=== PATIENT | female | born 1955 | race Caucasian/White ===

== ENCOUNTER 2020-09-26 14:53 | Outpatient (REF) | payer OTHER, SELFPAY ==
[2020-09-26 16:27] LABS: Basophils Percent Auto 0.5 % (0-2); Eosinophils Absolute Auto 0.2 X10*3/uL (0.0-0.4); Eosinophils Percent Auto 2.9 % (0-4); Hematocrit 41.5 % (37-47); Hemoglobin 13.3 g/dl (12.0-16.0); Imm Gran Abs Auto 0.04 X10*3/uL (0.00-0.03); Imm Gran Pct Auto 0.7 % (0.0-0.4); Lymphocytes Absolute Auto 2.1 X10*3/uL (1.2-4.9); Lymphocytes Percent Auto 37.3 % (20-40); MANUAL DIFF FLAG NO; Mean Corpuscular Hemoglobin 29.3 pg (27.0-33.0); Mean Corpuscular Volume 91.4 fL (80-98); Mean Platelet Volume 11.8 fL (9.4-12.3); Monocytes Absolute Auto 0.6 X10*3/uL (0.1-1.2); Monocytes Percent Auto 10.7 % (2-11); Neutrophils Absolute Auto 2.6 X10*3/uL (2.0-8.3); Neutrophils Percent Auto 47.9 % (45-73); Platelet Count 182 X10*3/uL (160-400); Red Blood Count 4.54 X10*6/uL (4.20-5.50); Red Cell Distribution Width 13.4 % (11.0-16.0); White Blood Count 5.5 X10*3/uL (4.8-10.8)
[2020-09-26 17:10] LABS: Erythrocyte Sedimentation Rate 38 MM/HR (0-20)
[2020-09-26 17:16] LABS: SARS COV2 IgG Positive (Negative)
== END 2020-09-26 14:54 | disposition home or self-care (01) ==
LOC: HO.LAB 14:53
PROVIDERS: Visit Provider Hospitalist
DX: J45.50 Severe persistent asthma, uncomplicated (principal); Z20.828 Contact with and (suspected) exposure to other viral communicable diseases
CPT/HCPCS: 36415; 82785; 85025; 85652; 86003; 86769; 99212

== ENCOUNTER → 2020-10-19 15:35 | Outpatient (BNVA) | payer OTHER, SELFPAY | PROVIDERS: Visit Provider Surgery | DX: N64.4 Mastodynia (principal) | CPT/HCPCS: 99212 ==

== ENCOUNTER → 2020-11-16 16:05 | Outpatient (BNVA) | payer OTHER, SELFPAY | PROVIDERS: Visit Provider Surgery | DX: N64.4 Mastodynia (principal) | CPT/HCPCS: 99212 ==

== ENCOUNTER → 2020-12-16 10:45 | Outpatient (BNVA) | payer OTHER, SELFPAY | PROVIDERS: Visit Provider Surgery | DX: N64.4 Mastodynia (principal) | CPT/HCPCS: 99212 ==

== ENCOUNTER → 2021-01-26 12:53 | Outpatient (BNVA) | payer OTHER, SELFPAY | PROVIDERS: Visit Provider Hospitalist | DX: J45.50 Severe persistent asthma, uncomplicated (principal); J98.11 Atelectasis; J30.9 Allergic rhinitis, unspecified; B02.29 Other postherpetic nervous system involvement; Z79.899 Other long term (current) drug therapy | CPT/HCPCS: 99212 ==

== ENCOUNTER → 2021-04-20 08:06 | Outpatient (BNVA) | payer OTHER, SELFPAY | PROVIDERS: Visit Provider Surgery | DX: N64.4 Mastodynia (principal) | CPT/HCPCS: 99212 ==

== ENCOUNTER 2021-05-04 14:21 | Outpatient (REF) | payer OTHER, SELFPAY ==
--- NOTE | ~2021-05-04 | MM_ITS ---
EXAMINATION: MM DIAGNOSTIC DIGITAL BREAST TOMOSYNTHESIS, BILATERAL US DIAGNOSTIC ULTRASOUND BREAST, BILATERAL CLINICAL INFORMATION: 65-year-old with mastodynia. No palpable concern on clinical exam. Patient provides history remote right breast cancer, 2003. COMPARISON: Mammography: 07/15/2020, 06/01/2020, 05/07/2019, MRI breasts 06/16/2019. TECHNIQUE: Digital breast tomosynthesis is performed in both the craniocaudal and mediolateral oblique views along with computer-aided detection (CAD). Synthesized 2D images are generated from the tomosynthesis. Additional left spot CC and left spot ML views are obtained. Ultrasound bilateral breasts is performed using grayscale imaging and color Doppler without and with harmonics. Left breast is imaged 2:00 through 11:00 position. Right breast is imaged in 3:00 through 12:00 position. FINDINGS: There are scattered areas of fibroglandular density (ACR BI-RADS breast composition Category b). There are no significant masses, abnormal calcifications, or other abnormalities. No developing density. No skin thickening or coarsening of the Kannan's ligaments. The axilla are stable. Skin contours are smooth. No significant changes. Ultrasound bilateral breast demonstrates no solid mass or architectural abnormality. There is no skin thickening or edema tracking in soft tissue planes. No focal duct ectasia or hyperemia. Left breast has a tiny cyst 6:00 position 3 cm from nipple measuring under 4 mm. Right breast has tiny cyst 9:00 position 7 cm from nipple under 4 mm. Results are discussed with the patient at time of visit. MM/MM tomosynthesis diagnostic BI IMPRESSION: 1. No mammographic evidence of malignancy or focal inflammatory changes.. 2. Unremarkable targeted bilateral ultrasound. ASSESSMENT: BI-RADS 2: Benign RECOMMENDATION: 1. Patient should be managed based on the clinical impression. 2. Otherwise, routine annual screening mammography. Additional adjunct MRI breasts as clinical risk factors warrant. This patient's information was entered into a reminder system with a target due date for their next mammogram.
== END 2021-05-04 14:22 | disposition home or self-care (01) ==
LOC: HO.MAMMO 14:21
PROVIDERS: Visit Provider Surgery
DX: N64.4 Mastodynia (principal)
CPT/HCPCS: 76642; 77062; 77066

== ENCOUNTER → 2021-07-31 12:57 | Outpatient (BNVA) | payer OTHER, SELFPAY | PROVIDERS: Visit Provider Hospitalist | DX: J45.40 Moderate persistent asthma, uncomplicated (principal); J30.9 Allergic rhinitis, unspecified; J98.11 Atelectasis; M54.9 Dorsalgia, unspecified; G47.00 Insomnia, unspecified; B02.29 Other postherpetic nervous system involvement; Z88.6 Allergy status to analgesic agent; Z91.018 Allergy to other foods; Z88.8 Allergy status to other drugs, medicaments and biological substances | CPT/HCPCS: 99212 ==

== ENCOUNTER → 2021-10-24 13:59 | Outpatient (BNVA) | payer OTHER, SELFPAY | PROVIDERS: Referring Provider Internal Medicine; Visit Provider Surgery | DX: N64.4 Mastodynia (principal) | CPT/HCPCS: 99212 ==

== ENCOUNTER → 2022-01-17 09:58 | Outpatient (BNVA) | payer OTHER, SELFPAY | PROVIDERS: PCP Internal Medicine; Visit Provider Hospitalist | DX: J45.50 Severe persistent asthma, uncomplicated (principal); J30.9 Allergic rhinitis, unspecified; J98.11 Atelectasis; G47.00 Insomnia, unspecified | CPT/HCPCS: 99212 ==

== ENCOUNTER → 2022-04-26 13:26 | Outpatient (BNVA) | payer OTHER, SELFPAY | PROVIDERS: PCP Internal Medicine; Visit Provider Surgery | DX: N64.4 Mastodynia (principal); Z79.810 Long term (current) use of selective estrogen receptor modulators (SERMs) | CPT/HCPCS: 99212 ==

== ENCOUNTER 2022-05-08 08:24 | Outpatient (REF) | payer OTHER, SELFPAY ==
--- NOTE | ~2022-05-08 | XR_ITS ---
EXAMINATION: XR CHEST 2 VIEWS CLINICAL INFORMATION: Severe persistent asthma. COMPARISON: Chest radiographs dated 10/02/2019; CT chest dated 01/04/2020. TECHNIQUE: Frontal and lateral views of the chest were obtained. FINDINGS: The heart, great vessels, pulmonary vasculature and mediastinum are normal. The lungs show no focal infiltrate, effusion or pneumothorax. There is no acute osseous abnormality. There is multi-level thoracolumbar spondylosis. There are right upper quadrant surgical clips. XR/XR chest 2V IMPRESSION: No active cardiopulmonary disease.
--- NOTE | ~2022-05-08 | MM_ITS ---
EXAMINATION: MM SCREENING DIGITAL BREAST TOMOSYNTHESIS, BILATERAL CLINICAL INFORMATION: Screening. Asymptomatic. Remote right breast cancer, 2003. COMPARISON: Mammography: 05/04/2021, 07/15/2020, 06/01/2020, 05/07/2019, outside mammography 01/30/2019 and 01/25/2018 ([facility]). Bilateral breast ultrasound 05/04/2021. TECHNIQUE: Digital breast tomosynthesis is performed in both the craniocaudal and mediolateral oblique views along with computer-aided detection (CAD). Synthesized 2D images are generated from the tomosynthesis. FINDINGS: There are scattered areas of fibroglandular density (ACR BI-RADS breast composition Category b). Parenchymal pattern is similar to prior studies. There are scattered stable small fibronodular densities anterior breasts. No developing density or architectural abnormality. No abnormal calcifications. The axilla and skin contours are unremarkable. MM/MM tomosynthesis screening BI IMPRESSION: No significant changes from prior studies. ASSESSMENT: BI-RADS 2: Benign RECOMMENDATION: Routine annual mammography screening. This patient's information was entered into a reminder system with a target due date for their next mammogram.
== END 2022-05-08 08:25 | disposition home or self-care (01) ==
LOC: HO.MAMMO 08:24
PROVIDERS: Absent Provider Hospitalist; PCP Internal Medicine; Visit Provider Internal Medicine
DX: Z12.31 Encounter for screening mammogram for malignant neoplasm of breast (principal); J45.50 Severe persistent asthma, uncomplicated
CPT/HCPCS: 71046; 77063; 77067

== ENCOUNTER → 2022-05-23 09:59 | Outpatient (BNVA) | payer OTHER, SELFPAY | PROVIDERS: PCP Internal Medicine; Visit Provider Hospitalist | DX: J45.50 Severe persistent asthma, uncomplicated (principal); J30.9 Allergic rhinitis, unspecified; J98.11 Atelectasis; G47.00 Insomnia, unspecified | CPT/HCPCS: 99212 ==

== ENCOUNTER → 2022-12-14 11:11 | Outpatient (BNVA) | payer MEDICARE, MEDICAID, SELFPAY | PROVIDERS: PCP Internal Medicine; Visit Provider Surgery | DX: N64.4 Mastodynia (principal); Z79.810 Long term (current) use of selective estrogen receptor modulators (SERMs); Z85.3 Personal history of malignant neoplasm of breast | CPT/HCPCS: 99212 ==

== ENCOUNTER → 2023-01-01 10:30 | Outpatient (BNVA) | payer MEDICARE, MEDICAID, SELFPAY | PROVIDERS: PCP Internal Medicine; Visit Provider Hospitalist | DX: J45.50 Severe persistent asthma, uncomplicated (principal); J30.9 Allergic rhinitis, unspecified; J98.11 Atelectasis; G47.00 Insomnia, unspecified | CPT/HCPCS: 99212 ==

== ENCOUNTER 2023-05-22 10:22 | Outpatient (REF) | payer OTHER, SELFPAY ==
--- NOTE | 2023-05-22 12:20 | PFT_ITS ---
INDICATION: Asthma. SPIROMETRY: The FEV1 to FVC 84% with an FEV1 of 1.77 L which is 76% predicted and FVC of 2.1 L which is 71% predicted. No significant response to bronchodilators noted. She does have small airway disease. LUNG VOLUMES: Total lung capacity 79% predicted with an expiratory residual volume of 51% predicted. DIFFUSION CAPACITY: DLCO of 57% predicted. COMPARISONS: None. INTERPRETATION: No obstructive ventilatory defects. No significant response to bronchodilators noted. Appears to have some small airway disease, could be secondary to underlying diagnosis of asthma. The patient does, however, have a restricted ventilatory defect consistent with very mild restrictive lung disease and also a decrease in the expiratory reserve volume which could be secondary to underlying parenchymal lung condition and elevated BMI. The patient also has a moderate diffusion impairment again suggesting the possibility of underlying parenchymal lung conditions. Pulmonary vascular condition should also be considered and should also correct for hemoglobin. If asthma is in your differential, methacholine challenge may be helpful in assessing for hyperreactive airways. Otherwise, clinical correlation warranted. MD DRE Smith/FARZAD / [phone]
== END 2023-05-22 10:23 | disposition home or self-care (01) ==
LOC: HO.RESP 10:22
PROVIDERS: PCP Internal Medicine; Visit Provider Hospitalist
DX: J45.50 Severe persistent asthma, uncomplicated (principal)
CPT/HCPCS: 94060; 94727; 94729

== ENCOUNTER → 2023-05-22 12:20 | Outpatient (BNV) | payer MEDICARE, MEDICAID, SELFPAY | PROVIDERS: PCP Internal Medicine; Visit Provider Hospitalist | DX: J45.50 Severe persistent asthma, uncomplicated (principal) | CPT/HCPCS: 94060; 94727; 94729 ==

== ENCOUNTER 2023-06-10 08:07 | Outpatient (REF) | payer OTHER, SELFPAY | END 2023-06-10 08:08 | disposition home or self-care (01) | LOC: HO.MAMMO 08:07 | PROVIDERS: PCP Internal Medicine; Visit Provider Internal Medicine | DX: Z12.31 Encounter for screening mammogram for malignant neoplasm of breast (principal) | CPT/HCPCS: 77063; 77067 ==

== ENCOUNTER → 2023-06-10 08:15 | Outpatient (BNV) | payer SELFPAY | PROVIDERS: PCP Internal Medicine; Visit Provider Radiology Diagnostic Radiology | DX: Z12.31 Encounter for screening mammogram for malignant neoplasm of breast (principal) | CPT/HCPCS: 77063; 77067 ==

== ENCOUNTER 2023-06-28 10:16 | Outpatient (AMB) | payer OTHER, SELFPAY ==
--- NOTE | 2023-06-28 10:22 | A.OFFVIS_ITS ---
Intake Vital Signs 06/28/23 10:28 Height 5 ft 3 in Weight 177 lb 6 oz BMI 31.4 BP 128/70 Blood Pressure Location Lt brachial Position Sitting Pulse 89 Intake Visit Reasons: 6 mth breast exam Intake Note: Patient is seen in office for 6 month follow up visit, breast exam. 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 Required: No Accompanied by: Self / Same As Patient Allergies aspirin Allergy (Intermediate, Verified 06/28/23 10:28) Rash and Hives omalizumab [From Xolair] Allergy (Intermediate, Verified 06/28/23 10:28) Angioedema Almonds,hazenuts,fresh fruits, Allergy (Severe, Uncoded 06/28/23 10:28) Hives/Rash Chlorhexidine Allergy (Severe, Uncoded 06/28/23 10:28) Rash and Hives Dye USP Blue 1 Allergy (Severe, Uncoded 06/28/23 10:28) Rash and Hives fresh fruits Allergy (Severe, Uncoded 06/28/23 10:28) Rash and Hives onions Allergy (Severe, Uncoded 06/28/23 10:28) Rash and Hives Chlora Prep Allergy (Intermediate, Uncoded 06/28/23 10:28) rash Medication List - Last Reconciled 06/28/23 by Bacilio Syed MD albuterol sulfate 2.5 mg inhalation Q4-6H PRN albuterol sulfate 90 mcg/actuation 2 puffs PO Q4H PRN benralizumab (Fasenra Pen) 30 mg subcut Q8W benzonatate 200 mg PO TID PRN diclofenac sodium 1% 4 grams topical QID epinephrine (EpiPen 2-Teofilo) 0.3 mg (0.3 mL) IM Q10M PRN 30 days [id number]-dojgzyvwx-cifhhjhr 200-62.5-25 mcg (Trelegy Ellipta) 1 inh inhalation DAILY 30 days gabapentin 300 mg PO TID hydrochlorothiazide 12.5 mg PO DAILY hydroxychloroquine 200 mg PO DAILY lidocaine 5% (Lidoderm) 1 patch topical DAILY 30 days loratadine 10 mg PO DAILY magnesium oxide 400 mg PO BID montelukast 10 mg PO DAILY nebulizers As directed omeprazole 40 mg PO DAILY 30 days potassium citrate ER (Urocit-K 10) 10 mEq PO TID prednisone 20 mg PO DAILY prednisone PO daily; Take 2 tabs daily x 5 days, then 1 tablet daily x 5 days 10 days tamoxifen 10 mg PO DAILY terbinafine HCl 250 mg PO DAILY trazodone 100 mg (2 x 50 mg) PO BEDTIME umeclidinium 62.5 mcg/actuation (Incruse Ellipta) 1 inh inhalation DAILY 30 days valacyclovir 1,000 mg PO Q8H HPI HPI Comments History of Present Illness Details Evie Shahid is a 67-year-old former patient of Dr. Wells returning today for follow-up breast evaluation for breast pain.? She reports the pain being greatest on the right side especially in the upper inner quadrant.? She underwent bilateral mammograms along with focused right breast ultrasound on 06/01/2020 and 07/15/2020 which were benign (BI-RADS 1) breast MRI of 06/16/2019 was benign as well.? She was initially tried [place] oil without much success and later started on tamoxifen by Dr. Wells.? Since starting the tamoxifen she reports an improvement in her breast pain especially on the right side.? She de nies any leg pain or leg swelling.? She denies any vaginal bleeding. She was previously on tamoxifen after developing right breast cancer which was treated at [facility] in 1998 (Dr. Eliza Quiroz).? She continues to feel improvement while taking the tamoxifen and is interested in continuing this medication. She denies any new breast symptoms. Her most recent mammogram of 06/10/2023 revealed no significant changes from her prior mammogram with no mammographic evidence of malignancy (BI-RADS 2). [facility] Medical History Asthma Atelectasis Back pain Chronic allergic rhinitis Insomnia Kidney stones Moderate persistent asthma Post herpetic neuralgia Surgical History History of 2 sections History of arthroplasty of knee (1993) History of cholecystectomy (07/21/19) History of colonoscopy (08/30/19) History of cystoscopy (2010) History of excision of mass (08/27/19) History of hemorrhoidectomy (1983) History of hysterectomy for cancer History of tonsillectomy and adenoidectomy (1965) Family History Father No problems noted. Mother No problems noted. Sister History of ovarian cancer, Onset Age: 49 Maternal Aunt History of breast cancer Maternal Aunt History of breast cancer Maternal Aunt History of breast cancer Maternal Aunt History of breast cancer Social History Alcohol intake: never Patient Tobacco Use Status: Never used Tobacco Review of Systems Const Denies anorexia and Denies chills Card Denies chest pain Resp Reports cough and Reports wheezing GI Denies abdominal pain Denies nipple discharge Musc Denies no additional complaints Skin/Breast Denies breast swelling, Reports breast pain, Denies breast mass and Denies nipple discharge Psych Denies no additional complaints Niranjan/Lymph Denies easy bleeding and Denies lymphadenopathy Aller/Immun Reports wheezing Physical Exam Vital Signs: Last Vital Signs Pulse 89 06/28/23 10:28 BP 128/70 06/28/23 10:28 BMI result Body Mass Index 31.4 Const General: cooperative, healthy appearing, comfortable and no acute distress Chest Other: Left breast: No skin change, no nipple retraction, no nipple discharge, no palpable mass, no enlarged lymph nodes, and no tenderness. Right breast: No skin change, no nipple retraction, no nipple discharge, no palpable mass, no enlarged lymph nodes; diffuse mild tenderness in both the inner upper and lower quadrants with some mild fibrocystic change. No change from prior examinations. Resp Effort & Inspection: normal respiratory effort, no cough and no stridor GI Inspection: Yes normal to inspection Skin Other: Warm and dry, no rash General skin exam: no rashes or lesions noted Neuro Other: Alert and oriented x3, patient uses a cane for ambulation Extrem General: Yes no clubbing, cyanosis or edema Assessment & Plan Assessment & Plan (1) Breast pain: Code(s): N64.4 - Mastodynia Plan: Patient returns for follow-up examination after starting low-dose tamoxifen for breast pain. She is tolerating well with no apparent side effects. She continues to note an improvement in the bilateral breast pain and is now able to wear a bra without discomfort. She wishes to continue the medication. Examination today revealed no suspicious findings in either breast. She has no apparent complications related to tamoxifen as well. She should return for follow-up examination approximately 6 months to evaluate for effectiveness of the current treatment. Patient expressed understanding and agrees with the plan. Follow-up mammogram due on May 2024. Plan to stop tamoxifen after 5 years (1 more year). Medications: Refilled tamoxifen 10 mg PO DAILY 90 tabs 3RF N64.4 - Mastodynia Coding Level of Care Code Est Pt Level 3 (26847) Diagnoses Breast pain N64.4
[2023-06-28 10:28] VITALS: BP 128/70; PULSE 89; BMI 31.4
== END 2023-06-28 10:38 | disposition home or self-care (01) ==
PROVIDERS: PCP Internal Medicine; Visit Provider Surgery
DX: N64.4 Mastodynia (principal)
CPT/HCPCS: 99213

== ENCOUNTER → 2023-06-28 10:16 | Outpatient (BNVA) | payer OTHER, SELFPAY | PROVIDERS: PCP Internal Medicine; Visit Provider Surgery | DX: N64.4 Mastodynia (principal); Z79.810 Long term (current) use of selective estrogen receptor modulators (SERMs) | CPT/HCPCS: 99212 ==

== ENCOUNTER 2023-07-05 10:42 | Outpatient (AMB) | payer OTHER, SELFPAY ==
--- NOTE | 2023-07-05 11:00 | A.OFFVIS_ITS ---
Intake Vital Signs 07/05/23 11:03 Height 5 ft 3 in Weight 176 lb BMI 31.2 BP 128/72 Blood Pressure Location Lt brachial Position Sitting Pulse 89 Pulse Source Pulse Oximeter Pulse Oximetry (%) 97 Oxygen Delivery Method Room Air Intake Visit Reasons: asthma Director Of Career Resources Required: No Allergies aspirin Allergy (Intermediate, Verified 07/05/23 11:06) Rash and Hives omalizumab [From Xolair] Allergy (Intermediate, Verified 07/05/23 11:06) Angioedema Almonds,hazenuts,fresh fruits, Allergy (Severe, Uncoded 07/05/23 11:06) Hives/Rash Chlorhexidine Allergy (Severe, Uncoded 07/05/23 11:06) Rash and Hives Dye DETENTION Blue 1 Allergy (Severe, Uncoded 07/05/23 11:06) Rash and Hives fresh fruits Allergy (Severe, Uncoded 07/05/23 11:06) Rash and Hives onions Allergy (Severe, Uncoded 07/05/23 11:06) Rash and Hives Chlora Prep Allergy (Intermediate, Uncoded 07/05/23 11:06) rash HPI HPI Comments History of Present Illness Details The patient is a 67-year-old woman with a known history of asthma in addition to systemic lupus erythematous. Will or she continues to use her respiratory therapy regularly. Has not had any recent flares or need for prednisone. Seems like it lupus is under control. However, the patient is presenting now with left-sided pleuritic discomfort mainly in the upper part of her left lung. This started happening for the last day or 2. It seems to be getting worse. Moderate in severity. Not associated with any fevers or chills. She has noticed increased rash sometimes getting blotches of January under scan that are tender. 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 The last kidney function was normal. The patient has not had any recent x-rays or blood work. We did do a blood work evaluation to see if she has any active lupus and we didn't see any significance. We talked about Plaquenil also potential therapy however. In the meantime the patient continues having this discomfort. Her x-ray appear to be relatively clear was not helpful trying to explain the right-sided pleuritic discomfort. She may have a neuromuscular component. But at this time with history lupus we have to make sure she the doesn't have any evidence of any pneumonitis or pleuritis. She does have an allergic reaction to dye as we cannot use that at this time. Will requested non contrast CT scan of the chest. In the meantime will try Plaquenil and consider he given some prednisone. We did do the blood work to assess lupus activity and her complement levels were within normal and her double strand DNA was also undetectable. Therefore, does not appear to have any lupus activity. Her CT scan of the chest is also reassuring. She has areas of atelectasis but no other findings to suggest active connective tissue disease at this time. Her pleural lining appears to be well visualized without any significant thickening or inflammation or effusions. 09/26/2020 the patient has a pulmonary follow-up visit. Overall she is feeling better now. Last month she did have increasing asthma symptoms and did have GI symptoms as well as fatigue. She did lose about 12 lb. Her respiratory status is better. She denied any fevers and denies any exposure to anyone with COVID-19 infection of the time. At this point based on her symptoms it is reasonable to check her for potential COVID-19 exposure with her antibodies. Again we did review her CT scan of the chest demonstrating some atelectasis and some scarring but otherwise no evidence of any interstitial lung disease to be concerned about. No need to follow this at this time. We talked about her respiratory medications. The patient has been on the Trelegy which appears to be effective but sometimes she feels like is not strong enough. At this point is reasonable to increase the dose to the higher dose which is a 200 mcg. In the meantime she does have significant allergies and therefore will check her allergy levels to see if she has a candidate for any allergy therapies or biologic therapy at this time. 01/26/2021 the patient is here for pulmonary follow-up visit. Since we last spoke she has been doing well from a respiratory status. She has been responding well to the higher dose Trelegy inhaler. She has had to use her rescue inhaler at times for chest tightness and wheezing. She is also complaining of some discomfort due to developing shingles. She has significant discomfort now with post herpetic neuralgia. She has been trying medications with minimal relief. She will try a Lidoderm patch to see if she gets some benefit. She has been complaining of discomfort in the back primarily the right lung. Again we talked about her CT scan demonstrating some areas of atelectasis but otherwise no significant disease. Therefore the patient is not getting any better and develops any worsening chest discomfort she can have an x-ray that will have available for her. 07/31/2021 the patient is here for a pulmonary follow-up visit. Since we last spoke she had a bad fall down the stairs injuring both risks and also her left knee. She did follow-up with orthopedist. She does not require surgery although she does have braces. Breathing seems to be doing okay. She has responded well to the Trelegy. Denies any significant coughing or shortness of breath. She has been complaining of some pain in the upper back. It is reproducible. It is not pleuritic in nature. Likely related to her accident, musculoskeletal. Although, she never had a chest x-ray after the fall therefore that will be a reasonable thing to do to make sure that no further injuries were noted. she is having hard time sleeping. Initially she had been on high dose of gabapentin and she would like to hold off on increasing that medication since it has made a really drowsy. I did recommend she can try some trazodone to see if that would help her stay asleep she can start with 1 tablet 1 hour before sleep and increasing it to 2 if still having issues. It is okay for her to use the gabapentin along with the trazodone as long she is going right to bed. 01/17/2022 the patient is here for a pulmonary follow-up visit. Overall she is feeling better. However, she did have a tough November. She has significant chest tightness and wheezing. She is not sure was triggering her symptoms. She denied any viral syndromes or sick contacts. Overall she did well afterwards. She did not require prednisone and did not require hospitalization have the patient has been having some difficulties getting her inhalers. we did look into it by calling the pharmacy and we straighten out the issue. She was going to go get her inhalers today. In the meantime she does have significant allergies. She does take Claritin and also takes singular. Her Respiratory medications are already optimized. She does have significant allergies that we reviewed on her allergy panel. Therefore, she continues to have symptoms she may be a good candidate for Xolair. 05/23/2022 the patient is here for a pulmonary follow-up visit. The patient overall has been doing about the same. She has been using the Breo and the Incruse and have not been as effective as the Trelegy. Therefore she rather go on Trelegy. Will submit another prescription to the pharmacy and then will need a prior approval to get her back on Trelegy. This will improve her respiratory symptoms and decrease exacerbations. In the meantime the patient did have a chest x-ray sometime in April which we personally reviewed demonstrating any acute disease. She has not had any anaphylactic reaction but now having been is . I will make sure to for her to have 1 at home. She is still using the trazodone for sleep with good effect. 01/01/2023 the patient is here for a pulmonary follow-up visit. The patient continues to have some chest tightness wheezing. [id number] severity. Has been using her rescue inhaler daily. She was supposed to be on Trelegy but she is still on Breo. Therefore will go ahead and discontinue the Breo senna the Trelegy inhaler. She also started her Fasenra injections. She had an adverse effects to Xolair and therefore she was switched over. She seems to be tolerating it better and seems to be improving her symptoms to some degree. I am hopeful that once we optimize her respiratory therapy while on the Fasenra she will have some cephalization of her asthma. Her last chest x-ray was back in April 2022 demonstrating no acute disease which is reassuring. No additional imaging studies are warranted at this time. 07/05/2023 the patient is here for a pulmonary follow-up visit. Her respiratory status seems to be doing better on the Trelegy inhaler and also on the Fasenra injections. She has been having some chest discomfort her. Pleuritic in nature. She had been on Plaquenil before and did help her with her symptoms. Explained to her that this is not a medication that she can take regularly. I will prescribe for 1 month and afterwards if she needs additional or she feels that she wants to continue it she needs to talk to primary care or Rheumatology. The patient is also having some difficulty sleeping. She is using the melatonin. She is not using the trazodone. When she does sleep she does wake up tired. Her Pelham score is elevated 10/24. She does have intermittent headaches. She does have snoring. Will request a sleep study at this time. [facility] Medical History (Updated 07/05/23 @ 11:14 by Devon Lebron MD) Asthma Atelectasis Back pain Chronic allergic rhinitis Chronic restrictive lung disease Insomnia Kidney stones Moderate persistent asthma Post herpetic neuralgia Surgical History History of 2 sections History of arthroplasty of knee (1993) History of cholecystectomy (07/21/19) History of colonoscopy (08/30/19) History of cystoscopy (2010) History of excision of mass (08/27/19) History of hemorrhoidectomy (1983) History of hysterectomy for cancer History of tonsillectomy and adenoidectomy (1965) Family History Father No problems noted. Mother No problems noted. Sister History of ovarian cancer, Onset Age: 49 Maternal Aunt History of breast cancer Maternal Aunt History of breast cancer Maternal Aunt History of breast cancer Maternal Aunt History of breast cancer Social History Alcohol intake: never Patient Tobacco Use Status: Never used Tobacco Review of Systems Const Denies anorexia, Denies chills, Reports daytime sleepiness, Reports difficulty sleeping and Reports snoring ENT Reports nasal congestion Card Reports chest pain Resp Reports cough, Reports pain with cough, Reports snoring and Reports wheezing GI Denies abdominal pain Denies nipple discharge Musc Reports abnormal gait, Reports myalgias, Reports arthralgias and Reports muscle weakness Skin/Breast Denies breast swelling, Reports breast pain, Denies breast mass and Denies nipple discharge Neuro Reports abnormal gait Psych Denies no additional complaints Niranjan/Lymph Denies easy bleeding and Denies lymphadenopathy Aller/Immun Reports wheezing Physical Exam Vital Signs: Last Vital Signs Pulse 89 07/05/23 11:03 BP 128/72 07/05/23 11:03 Pulse Ox 97 07/05/23 11:03 Oxygen Delivery Method Room Air 07/05/23 11:03 BMI result Body Mass Index 31.2 Const General: alert Neck Neck: Yes normal visual inspection, Yes full ROM and Yes no lymphadenopathy Chest Chest palpation & inspection: normal inspection of the chest Resp Auscultation: diminished lung sounds Cardio Rate: regular rate Rhythm: regular rhythm Heart sounds: S1 normal heart sound present and S2 normal heart sound present GI Palpation (GI): Soft to palpation and nontender Auscultation: normal bowel sounds Skin General skin exam: rashes and/or lesions noted Assessment & Plan Assessment & Plan (1) Asthma: Code(s): J45.909 - Unspecified asthma, uncomplicated Qualifiers: Asthma complication type: uncomplicated Asthma persistence: persistent Asthma severity: severe Qualified Code(s): J45.50 - Severe persistent asthma, uncomplicated (2) Chronic allergic rhinitis: Code(s): J30.9 - Allergic rhinitis, unspecified (3) Atelectasis: Code(s): J98.11 - Atelectasis (4) Insomnia: Code(s): G47.00 - Insomnia, unspecified (5) MARLON (obstructive sleep apnea): Code(s): G47.33 - Obstructive sleep apnea (adult) (pediatric) Plan continue Trelegy continue Melatonin home PSG CXR plaquenil x 1 month only ZOË as needed continue singular continue Claritin stopped Trazodone for sleep continue Fasenra Q8 weeks F/U 6 months Orders: Orders XR chest 2V 07/05/23 J98.4 - Other disorders of lung RT home sleep study 07/05/23 G47.33 - Obstructive sleep apnea (adult) (pediatric) Medications: New hydroxychloroquine (Plaquenil) 200 mg PO DAILY 30 tabs 5RF Coding Level of Care Code Est Pt Level 4 (24308) Diagnoses Asthma J45.50 Asthma complication type: uncomplicated Asthma persistence: persistent Asthma severity: severe Chronic allergic rhinitis J30.9 Atelectasis J98.11 Insomnia G47.00 MARLON (obstructive sleep apnea) G47.33 Time Spent (min) 18
[2023-07-05 11:03] VITALS: BP 128/72; PULSE 89; O2SAT 97; BMI 31.2
== END 2023-07-05 11:29 | disposition home or self-care (01) ==
PROVIDERS: PCP Internal Medicine; Visit Provider Hospitalist
DX: J45.50 Severe persistent asthma, uncomplicated (principal); J30.9 Allergic rhinitis, unspecified; J98.11 Atelectasis; G47.00 Insomnia, unspecified; G47.33 Obstructive sleep apnea (adult) (pediatric)
CPT/HCPCS: 99214

== ENCOUNTER → 2023-07-05 10:42 | Outpatient (BNVA) | payer OTHER, SELFPAY | PROVIDERS: PCP Internal Medicine; Visit Provider Hospitalist | DX: J98.4 Other disorders of lung (principal); J45.50 Severe persistent asthma, uncomplicated; J98.11 Atelectasis; J30.9 Allergic rhinitis, unspecified; G47.33 Obstructive sleep apnea (adult) (pediatric); G47.00 Insomnia, unspecified | CPT/HCPCS: 99212 ==

== ENCOUNTER → 2023-09-18 10:27 | Outpatient (REF) | payer OTHER, SELFPAY ==
--- NOTE | ~2023-09-18 | XR_ITS ---
EXAMINATION: XR CHEST CLINICAL INFORMATION: Cough, disorders of lung COMPARISON: 05/08/2022 TECHNIQUE: 2 views of the chest were obtained. FINDINGS: There is no gross pneumothorax. Heart size is normal. Degenerative changes in the thoracic spine. Surgical clips in the right upper quadrant of the abdomen. No pleural effusion. No focal consolidation to suggest pneumonia. XR/XR chest 2V IMPRESSION: No evidence of pneumonia.
== END ==
LOC: HO.SL 10:27
PROVIDERS: PCP Internal Medicine; Visit Provider Hospitalist
DX: G47.33 Obstructive sleep apnea (adult) (pediatric) (principal); J98.4 Other disorders of lung
CPT/HCPCS: 71046; 95806

== ENCOUNTER → 2023-09-18 10:53 | Outpatient (BNV) | payer OTHER, SELFPAY | PROVIDERS: PCP Internal Medicine; Visit Provider Internal Medicine | DX: R06.83 Snoring (principal) | CPT/HCPCS: 95806 ==

== ENCOUNTER 2023-09-19 09:47 | Outpatient (AMB) | payer OTHER, SELFPAY ==
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
[2023-09-19 10:17] VITALS: BP 128/84; PULSE 91; O2SAT 98; BMI 31.0
== END 2023-09-19 11:22 | disposition home or self-care (01) ==
PROVIDERS: PCP Internal Medicine; Visit Provider Nurse Practitioner Family
DX: M54.2 Cervicalgia (principal); R20.2 Paresthesia of skin; M79.601 Pain in right arm; M79.602 Pain in left arm; R51.9 Headache, unspecified; G43.109 Migraine with aura, not intractable, without status migrainosus
CPT/HCPCS: 99204

== ENCOUNTER → 2023-09-19 09:47 | Outpatient (BNVA) | payer OTHER, SELFPAY | PROVIDERS: PCP Internal Medicine; Visit Provider Nurse Practitioner Family | DX: M54.2 Cervicalgia (principal); M79.602 Pain in left arm; M79.601 Pain in right arm; R20.2 Paresthesia of skin; R51.9 Headache, unspecified; G43.109 Migraine with aura, not intractable, without status migrainosus | CPT/HCPCS: 99202 ==

== ENCOUNTER → 2023-10-10 09:31 | Outpatient (BNVA) | payer OTHER, SELFPAY | PROVIDERS: PCP Internal Medicine; Visit Provider Nurse Practitioner Family ==

== ENCOUNTER 2023-11-13 12:37 | Outpatient (REF) | payer MEDICARE, SELFPAY | END 2023-11-13 12:38 | disposition home or self-care (01) | LOC: HO.NEURO 12:37 | PROVIDERS: PCP Internal Medicine; Visit Provider Nurse Practitioner Family | DX: R20.0 Anesthesia of skin (principal); R20.2 Paresthesia of skin; M54.2 Cervicalgia; M79.601 Pain in right arm; M79.602 Pain in left arm; R53.1 Weakness | CPT/HCPCS: 95886; 95911 ==

== ENCOUNTER → 2023-11-13 12:40 | Outpatient (BNV) | payer MEDICARE, SELFPAY | PROVIDERS: PCP Internal Medicine; Visit Provider Physical Medicine & Rehabilitation | DX: M79.641 Pain in right hand (principal); M79.642 Pain in left hand | CPT/HCPCS: 95886; 95911 ==

== ENCOUNTER 2023-12-13 09:36 | Outpatient (REF) | payer MEDICARE, SELFPAY ==
--- NOTE | ~2023-12-13 | MR_ITS ---
EXAMINATION: MR BRAIN WITHOUT CONTRAST CLINICAL INFORMATION: Headache COMPARISON: None available. TECHNIQUE: MRI of the brain was obtained using routine sequences without contrast. Intravenous contrast was not administered per patient's request. FINDINGS: No acute intracranial hemorrhage or infarct. Scattered and confluent periventricular white matter T2/FLAIR hyperintensities, nonspecific however commonly seen with small vessel ischemic disease. No midline shift or hydrocephalus. No acute extra-axial fluid collections. The osseous structures are unremarkable. The pituitary gland, pineal gland and remaining midline structures are unremarkable. No orbital pathology. Mucosal thickening and frothy secretions in the left sphenoid sinus. The mastoid air cells are clear. MR/MR head/brain wo con IMPRESSION: -No acute intracranial abnormalities. -Chronic microangiopathy. -Left sphenoid sinusitis.
== END 2023-12-13 09:37 | disposition home or self-care (01) ==
LOC: HO.MRI 09:36
PROVIDERS: PCP Internal Medicine; Visit Provider Nurse Practitioner Family
DX: R51.9 Headache, unspecified (principal); R20.2 Paresthesia of skin; M79.601 Pain in right arm
CPT/HCPCS: 70551

== ENCOUNTER 2023-12-31 09:21 | Outpatient (AMB) | payer MEDICARE, SELFPAY ==
--- NOTE | 2023-12-31 09:23 | A.OFFVIS_ITS ---
Intake Vital Signs 12/31/23 09:31 Height 5 ft 3 in Weight 181 lb BMI 32.1 BP 121/61 Blood Pressure Location Rt brachial Position Sitting Pulse 99 Intake Visit Reasons: 6 mth breast exam Intake Note: This patient presents for a six month follow-up breast exam. Patient c/o;reports no breast complaints at this time. 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 Accompanied by: Self / Same As Patient Allergies aspirin Allergy (Intermediate, Verified 12/31/23 09:32) Rash and Hives omalizumab [From Xolair] Allergy (Intermediate, Verified 12/31/23 09:32) Angioedema Almonds,hazenuts,fresh fruits, Allergy (Severe, Uncoded 12/31/23 09:32) Hives/Rash Chlorhexidine Allergy (Severe, Uncoded 12/31/23 09:32) Rash and Hives Dye [facility] Blue 1 Allergy (Severe, Uncoded 12/31/23 09:32) Rash and Hives fresh fruits Allergy (Severe, Uncoded 12/31/23 09:32) Rash and Hives onions Allergy (Severe, Uncoded 12/31/23 09:32) Rash and Hives Chlora Prep Allergy (Intermediate, Uncoded 12/31/23 09:32) rash Medication List - Last Reconciled 12/31/23 by Bacilio Syed MD albuterol sulfate 2.5 mg inhalation Q4-6H PRN albuterol sulfate 90 mcg/actuation 2 puffs PO Q4H PRN benralizumab (Fasenra Pen) 30 mg subcut Q8W benzonatate 200 mg PO TID PRN diclofenac sodium 1% 4 grams topical QID epinephrine (EpiPen 2-Teofilo) 0.3 mg (0.3 mL) IM Q10M PRN 30 days rwvvqsdilmq-uqwqjrssd-oaymjdyk 200-62.5-25 mcg (Trelegy Ellipta) 1 inh inhalation DAILY 30 days gabapentin 300 mg PO TID galcanezumab-gnlm (Emgality Pen) 120 mg subcut ONCE 30 days hydrochlorothiazide 12.5 mg PO DAILY hydroxychloroquine 200 mg PO DAILY hydroxychloroquine (Plaquenil) 200 mg PO DAILY lidocaine 5% (Lidoderm) 1 patch topical DAILY 30 days loratadine 10 mg PO DAILY magnesium oxide 400 mg PO BID montelukast 10 mg PO DAILY nebulizers As directed nitrofurantoin monohyd/m-cryst 100 mg 1 cap PO Q12H omeprazole 40 mg PO DAILY 30 days potassium citrate ER (Urocit-K 10) 10 mEq PO TID prednisone PO daily; Take 2 tabs daily x 5 days, then 1 tablet daily x 5 days 10 days rosuvastatin 0 mg PO tamoxifen 10 mg PO DAILY terbinafine HCl 250 mg PO DAILY trazodone 100 mg (2 x 50 mg) PO BEDTIME ubrogepant (Ubrelvy) 50 - 100 mg (0.5 - 1 x 100 mg) PO ONCE PRN 30 days umeclidinium 62.5 mcg/actuation (Incruse Ellipta) 1 inh inhalation DAILY 30 days HPI HPI Comments History of Present Illness Details Evie Shahid is a 68-year-old former patient of Dr. Wells returning today for follow-up breast evaluation for breast pain.? She reports the pain being greatest on the right side especially in the upper inner quadrant.? She underwent bilateral mammograms along with focused right breast ultrasound on 06/01/2020 and 07/15/2020 which were benign (BI-RADS 1) breast MRI of 06/16/2019 was benign as well.? She was initially tried [place] oil without much success and later started on tamoxifen by Dr. Wells.? Since starting the tamoxifen she reports an improvement in her breast pain especially on the right side.? She denies any leg pain or leg swelling.? She denies any vaginal bleeding. She was previously on tamoxifen after developing right breast cancer which was treated at [facility] in 1998 (Dr. Eliza Quiroz).? She continues to feel improvement while taking the tamoxifen and is interested in continuing this medication. She denies any new breast symptoms. Her most recent mammogram of 06/10/2023 revealed no significant changes from her prior mammogram with no mammographic evidence of malignancy (BI-RADS 2). [facility] Medical History Type 2 diabetes mellitus Varicose veins of bilateral lower extremities with pain GERD (gastroesophageal reflux disease) HLD (hyperlipidemia) History of renal calculi Hepatic steatosis History of breast cancer Chronic restrictive lung disease Insomnia Back pain Moderate persistent asthma Post herpetic neuralgia Kidney stones Chronic allergic rhinitis Atelectasis Asthma Surgical History History of colonoscopy (08/30/19) History of excision of mass (08/27/19) History of cholecystectomy (07/21/19) History of cystoscopy (2010) History of arthroplasty of knee (1993) History of hemorrhoidectomy (1983) History of 2 sections History of tonsillectomy and adenoidectomy (1965) History of hysterectomy for cancer Family History Father No problems noted. Mother No problems noted. Sister History of ovarian cancer, Onset Age: 49 Maternal Aunt History of breast cancer Maternal Aunt History of breast cancer Maternal Aunt History of breast cancer Maternal Aunt History of breast cancer Social History Alcohol intake: never Patient Tobacco Use Status: Never used Tobacco Review of Systems Const Denies anorexia and Denies chills Card Denies chest pain Resp Reports cough and Reports wheezing GI Denies abdominal pain Denies nipple discharge Musc Denies no additional complaints Skin/Breast Denies breast swelling, Reports breast pain, Denies breast mass and Denies nipple discharge Psych Denies no additional complaints Niranjan/Lymph Denies easy bleeding and Denies lymphadenopathy Aller/Immun Reports wheezing Physical Exam Vital Signs: Last Vital Signs Pulse 99 12/31/23 09:31 BP 121/61 12/31/23 09:31 BMI result Body Mass Index 32.1 Const General: cooperative, healthy appearing, comfortable and no acute distress Chest Other: Left breast: No skin change, no nipple retraction, no nipple discharge, no palpable mass, no enlarged lymph nodes, and no tenderness. Right breast: No skin change, no nipple retraction, no nipple discharge, no palpable mass, no enlarged lymph nodes; diffuse mild tenderness in both the inner upper and lower quadrants with some mild fibrocystic change. No change from prior examinations. Resp Effort & Inspection: normal respiratory effort, no cough and no stridor GI Inspection: Yes normal to inspection Skin Other: Warm and dry, no rash General skin exam: no rashes or lesions noted Neuro Other: Alert and oriented x3, patient uses a cane for ambulation Extrem General: Yes no clubbing, cyanosis or edema Assessment & Plan Assessment & Plan (1) Breast pain: Code(s): N64.4 - Mastodynia Plan: Patient returns for follow-up examination after starting low-dose tamoxifen for breast pain. She is tolerating well with no apparent side effects. She continues to note an improvement in the bilateral breast pain and is now able to wear a bra without discomfort. She wishes to continue the medication. Ex amination today revealed no suspicious findings in either breast. She has no apparent complications related to tamoxifen as well. She should return for follow-up examination approximately 6 months to evaluate for effectiveness of the current treatment. Patient expressed understanding and agrees with the plan. Follow-up mammogram due on May 2024. Plan to stop tamoxifen after 5 years ( 6 more months). Medications: Refilled tamoxifen 10 mg PO DAILY 90 tabs 1RF N64.4 - Mastodynia Coding Level of Care Code Est Pt Level 3 (11008) Diagnoses Breast pain N64.4
[2023-12-31 09:31] VITALS: BP 121/61; PULSE 99; BMI 32.1
== END 2023-12-31 09:43 | disposition home or self-care (01) ==
PROVIDERS: PCP Internal Medicine; Visit Provider Surgery
DX: N64.4 Mastodynia (principal)
CPT/HCPCS: 99213

== ENCOUNTER → 2023-12-31 09:21 | Outpatient (BNVA) | payer MEDICARE, SELFPAY | PROVIDERS: PCP Internal Medicine; Visit Provider Surgery | DX: N64.4 Mastodynia (principal) | CPT/HCPCS: 99212 ==

== ENCOUNTER 2024-01-03 10:57 | Outpatient (AMB) | payer MEDICARE, SELFPAY ==
--- NOTE | 2024-01-03 11:03 | A.OFFVIS_ITS ---
Intake Vital Signs 01/03/24 11:04 Height 5 ft 3 in Weight 166 lb BMI 29.4 Pulse 85 Pulse Source Pulse Oximeter Pulse Oximetry (%) 98 Oxygen Delivery Method Room Air Intake Visit Reasons: asthma Street Light Inspector Required: No Allergies aspirin Allergy (Intermediate, Verified 01/03/24 11:04) Rash and Hives omalizumab [From Xolair] Allergy (Intermediate, Verified 01/03/24 11:04) Angioedema Almonds,hazenuts,fresh fruits, Allergy (Severe, Uncoded 01/03/24 11:04) Hives/Rash Chlorhexidine Allergy (Severe, Uncoded 01/03/24 11:04) Rash and Hives Dye JAIL Blue 1 Allergy (Severe, Uncoded 01/03/24 11:04) Rash and Hives fresh fruits Allergy (Severe, Uncoded 01/03/24 11:04) Rash and Hives onions Allergy (Severe, Uncoded 01/03/24 11:04) Rash and Hives Chlora Prep Allergy (Intermediate, Uncoded 01/03/24 11:04) rash HPI HPI Comments History of Present Illness Details The patient is a 68-year-old woman with a known history of asthma in addition to systemic lupus erythematous. Will or she continues to use her respiratory therapy regularly. Has not had any recent flares or need for predni sone. Seems like it lupus is under control. However, the patient is presenting now with left-sided pleuritic discomfort mainly in the upper part of her left lung. This started happening for the last day or 2. It seems to be getting worse. Moderate in severity. Not associated with any fevers or chills. She has noticed increased rash sometimes getting blotches of January under scan that are tender. 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 The last kidney function was normal. The patient has not had any recent x-rays or blood work. We did do a blood work evaluation to see if she has any active lupus and we didn't see any significance. We talked about Plaquenil also potential therapy however. In the meantime the patient continues having this discomfort. Her x-ray appear to be relatively clear was not helpful trying to explain the right-sided pleuritic discomfort. She may have a neuromuscular component. But at this time with history lupus we have to make sure she the doesn't have any evidence of any pneumonitis or pleuritis. She does have an allergic reaction to dye as we cannot use that at this time. Will requested non contrast CT scan of the chest. In the meantime will try Plaquenil and consider he given some prednisone. We did do the blood work to assess lupus activity and her complement levels were within normal and her double strand DNA was also undetectable. Therefore, does not appear to have any lupus activity. Her CT scan of the chest is also reassuring. She has areas of atelectasis but no other findings to suggest active connective tissue disease at this time. Her pleural lining appears to be well visualized without any significant thickening or inflammation or effusions. 09/26/2020 the patient has a pulmonary follow-up visit. Overall she is feeling better now. Last month she did have increasing asthma symptoms and did have GI symptoms as well as fatigue. She did lose about 12 lb. Her respiratory status is better. She denied any fevers and denies any exposure to anyone with COVID-19 infection of the time. At this point based on her symptoms it is reasonable to check her for potential COVID-19 exposure with her antibodies. Again we did review her CT scan of the chest demonstrating some atelectasis and some scarring but otherwise no evidence of any interstitial lung disease to be concerned about. No need to follow this at this time. We talked about her respiratory medications. The patient has been on the Trelegy which appears to be effective but sometimes she feels like is not strong enough. At this point is reasonable to increase the dose to the higher dose which is a 200 mcg. In the meantime she does have significant allergies and therefore will check her allergy levels to see if she has a candidate for any allergy therapies or biologic therapy at this time. 01/26/2021 the patient is here for pulmonary follow-up visit. Since we last spoke she has been doing well from a respiratory status. She has been responding well to the higher dose Trelegy inhaler. She has had to use her rescue inhaler at times for chest tightness and wheezing. She is also complaining of some discomfort due to developing shingles. She has significant discomfort now with post herpetic neuralgia. She has been trying medications with minimal relief. She will try a Lidoderm patch to see if she gets some benefit. She has been complaining of discomfort in the back primarily the right lung. Again we talked about her CT scan demonstrating some areas of atelectasis but otherwise no significant disease. Therefore the patient is not getting any better and develops any worsening chest discomfort she can have an x-ray that will have available for her. 07/31/2021 the patient is here for a pulmonary follow-up visit. Since we last spoke she had a bad fall down the stairs injuring both risks and also her left knee. She did follow-up with orthopedist. She does not require surgery although she does have braces. Breathing seems to be doing okay. She has responded well to the Trelegy. Denies any significant coughing or shortness of breath. She has been complaining of some pain in the upper back. It is reproducible. It is not pleuritic in nature. Likely related to her accident, musculoskeletal. Although, she never had a chest x-ray after the fall therefore that will be a reasonable thing to do to make sure that no further injuries were noted. she is having hard time sleeping. Initially she had been on high dose of gabapentin and she would like to hold off on increasing that medication since it has made a really drowsy. I did recommend she can try some trazodone to see if that would help her stay asleep she can start with 1 tablet 1 hour before sleep and increasing it to 2 if still having issues. It is okay for her to use the gabapentin along with the trazodone as long she is going right to bed. 01/17/2022 the patient is here for a pulmonary follow-up visit. Overall she is feeling better. However, she did have a tough November. She has significant chest tightness and wheezing. She is not sure was triggering her symptoms. She denied any viral syndromes or sick contacts. Overall she did well afterwards. She did not require prednisone and did not require hospitalization have the patient has been having some difficulties getting her inhalers. we did look into it by calling the pharmacy and we straighten out the issue. She was going to go get her inhalers today. In the meantime she does have significant allergies. She does take Claritin and also takes singular. Her Respiratory medications are already optimized. She does have significant allergies that we reviewed on her allergy panel. Therefore, she continues to have symptoms she may be a good candidate for Xolair. 05/23/2022 the patient is here for a pulmonary follow-up visit. The patient overall has been doing about the same. She has been using the Breo and the Incruse and have not been as effective as the Trelegy. Therefore she rather go on Trelegy. Will submit another prescription to the pharmacy and then will need a prior approval to get her back on Trelegy. This will improve her respiratory symptoms and decrease exacerbations. In the meantime the patient did have a chest x-ray sometime in April which we personally reviewed marcus cowart any acute disease. She has not had any anaphylactic reaction but now having been is . I will make sure to for her to have 1 at home. She is still using the trazodone for sleep with good effect. 01/01/2023 the patient is here for a pulmonary follow-up visit. The patient continues to have some chest tightness wheezing. Oijf-kg-yrfcifla severity. Has been using her rescue inhaler daily. She was supposed to be on Trelegy but she is still on Breo. Therefore will go ahead and discontinue the Breo senna the Trelegy inhaler. She also started her Fasenra injections. She had an adverse effects to Xolair and therefore she was switched over. She seems to be tolerating it better and seems to be improving her symptoms to some degree. I am hopeful that once we optimize her respiratory therapy while on the Fasenra she will have some cephalization of her asthma. Her last chest x-ray was back in April 2022 demonstrating no acute disease which is reassuring. No additional imaging studies are warranted at this time. 07/05/2023 the patient is here for a pulmonary follow-up visit. Her respiratory status seems to be doing better on the Trelegy inhaler and also on the Fasenra injections. She has been having some chest discomfort her. Pleuritic in nature. She had been on Plaquenil before and did help her with her symptoms. Explained to her that this is not a medication that she can take regularly. I will prescribe for 1 month and afterwards if she needs additional or she feels that she wants to continue it she needs to talk to primary care or Rheumatology. The patient is also having some difficulty sleeping. She is using the melatonin. She is not using the trazodone. When she does sleep she does wake up tired. Her [place] score is elevated 10/24. She does have intermittent headaches. She does have snoring. Will request a sleep study at this time. 01/03/2024 the patient is here for pulmonary follow-up visit. Overall the patient has been doing well on the current respiratory regimen. She is responded well to the Trelegy inhaler and also the Fasenra injections. He has been getting the every 8 weeks. Denies any adverse effects from the medications. Her asthma has been significantly improved. Has not required any prednisone which is reassuring. In the meantime she has been struggling with her sleep. She is tried multiple medication including trazodone in the past without any significant improvement. She continues to have significant daytime drowsiness. The patient did undergo home sleep study which we personally viewed in the office. No evidence of any significant sleep apnea documented in the home sleep study. Will go ahead and try her on a small dose of zolpidem the hopes that she gets enough sleep. She knows to take the medication right at sleep time and not to plan any activities after taking the medication. The patient will monitor closely symptoms and hopefully she has improvement with smaller dose of the zolpidem. Otherwise patient is doing well. Will plan to follow-up in 4-6 months. [facility] Medical History Type 2 diabetes mellitus Varicose veins of bilateral lower extremities with pain GERD (gastroesophageal reflux disease) HLD (hyperlipidemia) History of renal calculi Hepatic steatosis History of breast cancer Chronic restrictive lung disease Insomnia Back pain Moderate persistent asthma Post herpetic neuralgia Kidney stones Chronic allergic rhinitis Atelectasis Asthma Surgical History History of colonoscopy (08/30/19) History of excision of mass (08/27/19) History of cholecystectomy (07/21/19) History of cystoscopy (2010) History of arthroplasty of knee (1993) History of hemorrhoidectomy (1983) History of 2 sections History of tonsillectomy and adenoidectomy (1965) History of hysterectomy for cancer Family History Father No problems noted. Mother No problems noted. Sister History of ovarian cancer, Onset Age: 49 Maternal Aunt History of breast cancer Maternal Aunt History of breast cancer Maternal Aunt History of breast cancer Maternal Aunt History of breast cancer Social History Alcohol intake: never Patient Tobacco Use Status: Never used Tobacco Review of Systems Const Denies anorexia, Denies chills, Reports daytime sleepiness and Reports difficulty sleeping Card Denies chest pain Resp Reports cough and Reports wheezing GI Denies abdominal pain Denies nipple discharge Musc Reports abnormal gait, Reports myalgias, Reports arthralgias and Reports muscle weakness Skin/Breast Denies breast swelling, Reports breast pain, Denies breast mass and Denies nipple discharge Neuro Reports abnormal gait Psych Denies no additional complaints Niranjan/Lymph Denies easy bleeding and Denies lymphadenopathy Aller/Immun Reports wheezing Physical Exam Vital Signs: Last Vital Signs Pulse 85 01/03/24 11:04 Pulse Ox 98 01/03/24 11:04 Oxygen Delivery Method Room Air 01/03/24 11:04 BMI result Body Mass Index 29.4 Const General: alert Neck Neck: Yes normal visual inspection, Yes full ROM and Yes no lymphadenopathy Chest Chest palpation & inspection: normal inspection of the chest Resp Effort & Inspection: normal respiratory effort Auscultation: diminished lung sounds Cardio Rate: regular rate Rhythm: regular rhythm Heart sounds: S1 normal heart sound present and S2 normal heart sound present GI Palpation (GI): Soft to palpation and nontender Auscultation: normal bowel sounds Skin General skin exam: rashes and/or lesions noted Assessment & Plan Assessment & Plan (1) Asthma: Code(s): J45.909 - Unspecified asthma, uncomplicated Qualifiers: Asthma complication type: uncomplicated Asthma persistence: persistent Asthma severity: severe Qualified Code(s): J45.50 - Severe persistent asthma, uncomplicated (2) Chronic allergic rhinitis: Code(s): J30.9 - Allergic rhinitis, unspecified (3) Atelectasis: Code(s): J98.11 - Atelectasis (4) Insomnia: Code(s): G47.00 - Insomnia, unspecified Qualifiers: Insomnia type: primary Qualified Code(s): F51.01 - Primary insomnia (5) MARLON (obstructive sleep apnea): Comment: No evidence of sleep apnea on the home sleep study. If she is continues to be symptomatic consider an in-lab sleep study Code(s): G47.33 - Obstructive sleep apnea (adult) (pediatric) Plan continue Trelegy continue Melatonin ZOË as needed continue singular continue Claritin stopped Trazodone for sleep continue Fasenra Q8 weeks F/U 6 months Medications: New zolpidem (Ambien) 5 mg PO BEDTIME 30 days PRN 30 tabs 3RF sleep albuterol sulfate 2.5 mg (3 mL) inhalation Q4-6H PRN 180 mL 11RF shortness of breath or wheezing budesonide-formoterol 160-4.5 mcg/actuation (Symbicort) 2 puffs inhalation BID 30 days 10.2 grams 11RF J44.89 - Other specified chronic obstructive pulmonary disease Refilled epinephrine (EpiPen 2-Teofilo) for 2 doses 0.3 mg (0.3 mL) IM Q10M 30 days PRN 2 ea 6RF anaphylaxis J45.40 - Moderate persistent asthma, uncomplicated Discontinued trazodone Discontinued Reason: Doctor's Order 100 mg (2 x 50 mg) PO BEDTIME 60 tabs 1RF for insomnia Coding Level of Care Code Est Pt Level 4 (40231) Diagnoses Severe persistent asthma without complication J45.50 Asthma complication type: uncomplicated Asthma persistence: persistent Asthma severity: severe Chronic allergic rhinitis J30.9 Atelectasis J98.11 Primary insomnia F51.01 Insomnia type: primary MARLON (obstructive sleep apnea) G47.33 Time Spent (min) 16
[2024-01-03 11:04] VITALS: PULSE 85; O2SAT 98; BMI 29.4
== END 2024-01-03 11:34 | disposition home or self-care (01) ==
PROVIDERS: PCP Internal Medicine; Visit Provider Hospitalist
DX: J45.50 Severe persistent asthma, uncomplicated (principal); J30.9 Allergic rhinitis, unspecified; J98.11 Atelectasis; F51.01 Primary insomnia; G47.33 Obstructive sleep apnea (adult) (pediatric)
CPT/HCPCS: 99214

== ENCOUNTER → 2024-01-03 10:57 | Outpatient (BNVA) | payer MEDICARE, SELFPAY | PROVIDERS: PCP Internal Medicine; Visit Provider Hospitalist | DX: J45.50 Severe persistent asthma, uncomplicated (principal); G47.33 Obstructive sleep apnea (adult) (pediatric); J30.9 Allergic rhinitis, unspecified; J98.11 Atelectasis; F51.01 Primary insomnia | CPT/HCPCS: 99212 ==

== ENCOUNTER 2024-01-08 09:41 | Outpatient (AMB) | payer MEDICARE, SELFPAY ==
--- NOTE | 2024-01-08 09:42 | A.OFFVIS_ITS ---
Intake Intake Visit Reasons: f/u for Migraines-Confirmed TELE Intake Note: Patient following up on migraines she still getting migraines but not a s frequent. Allergies aspirin Allergy (Intermediate, Verified 01/08/24 09:43) Rash and Hives omalizumab [From Xolair] Allergy (Intermediate, Verified 01/08/24 09:43) Angioedema Almonds,hazenuts,fresh fruits, Allergy (Severe, Uncoded 01/08/24 09:43) Hives/Rash Chlorhexidine Allergy (Severe, Uncoded 01/08/24 09:43) Rash and Hives Dye [employer] Blue 1 Allergy (Severe, Uncoded 01/08/24 09:43) Rash and Hives fresh fruits Allergy (Severe, Uncoded 01/08/24 09:43) Rash and Hives onions Allergy (Severe, Uncoded 01/08/24 09:43) Rash and Hives Chlora Prep Allergy (Intermediate, Uncoded 01/08/24 09:43) rash HPI HPI Comments History of Present Illness Details 68-year-old female presents for f/u tele video visit via [employer]. MR/MR head/brain wo con IMPRESSION: -No acute intracranial abnormalities. -Chronic microangiopathy. -Left sphenoid sinusitis. After review of MRI results, we reached out to patient who confirmed she was having sinusitis symptoms, her PCP did start her on antibiotics which were helpful. She is currently having migraine headache attacks- 2 attacks per week, which last 1-2 days. She did have the initial Emgality injection training in September, however she was not able to continue due to change in insurance. She did find the initial loading dose to be helpful, did not have any side effects. The Ubrelvy does help, but is trying to use sparingly as she does not have the Emgality. Baseline headache characteristics: Aura: May see stars during the headache Severe pressure followed by stabbing pain in midfrontal region, may travel through the right side to the right neck. a/w Photophobia, phonophobia, allodynia, N/V, activity intolerence, watery eyes. Worsening BUE hands/fingers- tingling, BUE EMG/NCS was normal. She does continue to have right greater than left upper extremity numbness and tingling. This starts in the forearm and moves through the 2nd through 4th fingers. 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 She has not been using lately. She has had PT, which helped some. Believes she had a left wrist injection before, but now the right side is more bothersome. [facility] Medical History Type 2 diabetes mellitus Varicose veins of bilateral lower extremities with pain GERD (gastroesophageal reflux disease) HLD (hyperlipidemia) History of renal calculi Hepatic steatosis History of breast cancer Chronic restrictive lung disease Insomnia Back pain Moderate persistent asthma Post herpetic neuralgia Kidney stones Chronic allergic rhinitis Atelectasis Asthma Surgical History History of colonoscopy (08/30/19) History of excision of mass (08/27/19) History of cholecystectomy (07/21/19) History of cystoscopy (2010) History of arthroplasty of knee (1993) History of hemorrhoidectomy (1983) History of 2 sections History of tonsillectomy and adenoidectomy (1965) History of hysterectomy for cancer Family History Father No problems noted. Mother No problems noted. Sister History of ovarian cancer, Onset Age: 49 Maternal Aunt History of breast cancer Maternal Aunt History of breast cancer Maternal Aunt History of breast cancer Maternal Aunt History of breast cancer Social History Alcohol intake: never Patient Tobacco Use Status: Never used Tobacco Physical Exam Const General: cooperative and no acute distress Orientation/consciousness: patient oriented x3 Resp Effort & Inspection: normal respiratory effort and able to speak in complete sentences Neuro General: patient oriented x3 Cognition (Neuro): normal cognition Psych Appearance: grossly normal Mental Status: mental status grossly normal Speech and movement: Normal speech and movement present Affect: normal affect Attitude: cooperative Assessment & Plan Assessment & Plan (1) Migraine with aura: Code(s): G43.109 - Migraine with aura, not intractable, without status migrainosus (2) Paresthesia and pain of both upper extremities: Code(s): R20.2 - Paresthesia of skin; M79.601 - Pain in right arm; M79.602 - Pain in left arm (3) Weakness: Code(s): R53.1 - Weakness Plan Reviewed BUE EMG/NCS- results were normal. Patient advised to try using her right wrist splint q.h.s., resume her upper extremity PT exercises, add upper extremity massages. If ineffective, consider OT eval and treat, refer back to her auto body mechanic apprentice. Reviewed Brain MRI w/wo- Chronic microangiopathy and Left sphenoid sinusitis. Findings not likely to have caused paresthesias. For overall headache management: Continue to optimize good self-care, including but not limited to maintaining a healthy diet, adequate fluid intake, adequate sleep, and engaging in regular physical activity. Track headaches. ? For acute headache treatment: Continue Ubrogepant (Ubrelvy) 100mg tab, 1/2 - 1 tab (50-100mg) at onset of headache, may repeat in 2 hours. Max of 2 tabs (200mg) per 24 hours. May adjunct with OTC Tylenol 650mg q 4 hours. May use sumatriptan p.r.n. for rescue. Previous acute migraine medication trials: Sumatriptan inj- was helpful. Sumatriptan was helpful. Zolmitriptan- unsure of effect. Acute migraine medication contraindications: Excess use of Triptans d/t palpitations, HLD. ? For headache prevention medication: Continue Magnesium up to 400mg qhs Patient advised to restart Emgality at 240mg sc x's 1, then 120mg sc q month.. Previous migraine prevention medication trials: Nortiptyline- was helpful. Migraine prevention medication contraindications: BBs d/t symptomatic asthma dx. TCAs d/t palpitations. Topiramate d/t h/o renal calculi. ? Pt to follow-up in 3 months or sooner prn. Medications: New sumatriptan succinate do not exceed 2 doses per 24 hrs 50 mg PO Q2-4H 30 days PRN 12 tabs 3RF migraine headache Changed From galcanezumab-gnlm (Emgality Pen) 120 mg subcut ONCE 30 days 1 mL 6RF To galcanezumab-gnlm (Emgality Pen) Loading dose: 240 mg subcu x1, followed by maintenance dose: 120 mg subcu q.month. 240 mg (2 mL) subcut ONCE 30 days 2 mL 0RF Telehealth Telehealth Location of provider rendering services: practice address Location of patient: address on file Patient Identification confirmed using: Name, : Yes Telehealth method: video Patient verbally consented to treatment: Yes Patient verbally consented to billing insurance company: Yes Patient informed of any privacy concerns related to visit: Yes Minutes spent on Phone/Video with Pt.: 16 Coding Level of Care Code Tele Est Pt Level 4 (39678) Diagnoses Migraine with aura G43.109 Paresthesia and pain of both upper extremities R20.2; M79.601; M79.602 Weakness R53.1
== END 2024-01-08 11:34 | disposition home or self-care (01) ==
LOC: HO.HSMS 09:41
PROVIDERS: PCP Internal Medicine; Visit Provider Nurse Practitioner Family
DX: G43.109 Migraine with aura, not intractable, without status migrainosus (principal); R20.2 Paresthesia of skin; M79.601 Pain in right arm; M79.602 Pain in left arm; R53.1 Weakness
CPT/HCPCS: 99214

== ENCOUNTER → 2024-01-08 09:41 | Outpatient (BNVA) | payer MEDICARE, SELFPAY | PROVIDERS: PCP Internal Medicine; Visit Provider Nurse Practitioner Family ==

== ENCOUNTER 2024-05-07 08:28 | Outpatient (AMB) | payer MEDICARE, SELFPAY ==
--- NOTE | 2024-05-07 08:42 | MHC.OFFVIS ---
Vital Signs 05/07/24 08:43 Height 5 ft 3 in Weight 165 lb BMI 29.2 BP 112/68 Blood Pressure Location Rt brachial Position Sitting Respiration 16 Pulse 85 Pulse Source Pulse Oximeter Pulse Oximetry (%) 96 Oxygen Delivery Method Room Air Intake Visit Reasons: follow up Migraines-LVM Intake Note: Pt presents for 4 month follow up for migraines. Nurse Anesthetist Required: No Allergies aspirin Allergy (Intermediate, Verified 05/07/24 08:42) Rash and Hives omalizumab [From Xolair] Allergy (Intermediate, Verified 05/07/24 08:42) Angioedema Almonds,hazenuts,fresh fruits, Allergy (Severe, Uncoded 05/07/24 08:42) Hives/Rash Chlorhexidine Allergy (Severe, Uncoded 05/07/24 08:42) Rash and Hives Dye NURSING HOME Blue 1 Allergy (Severe, Uncoded 05/07/24 08:42) Rash and Hives fresh fruits Allergy (Severe, Uncoded 05/07/24 08:42) Rash and Hives onions Allergy (Severe, Uncoded 05/07/24 08:42) Rash and Hives Chlora Prep Allergy (Intermediate, Uncoded 05/07/24 08:42) rash Medication List - Last Reconciled 05/07/24 by CHICO Chino albuterol sulfate 90 mcg/actuation (ProAir HFA) 1 inh inhalation QID albuterol sulfate 90 mcg/actuation 2 puffs PO Q4H PRN 90 days albuterol sulfate 2.5 mg (3 mL) inhalation Q4-6H PRN benralizumab (Fasenra Pen) 30 mg subcut Q8W benzonatate 200 mg PO TID PRN budesonide-formoterol 160-4.5 mcg/actuation (Symbicort) 2 puffs inhalation BID 30 days desloratadine (Clarinex) 5 mg PO DAILY diclofenac sodium 1% 4 grams topical QID epinephrine (EpiPen 2-Teofilo) 0.3 mg (0.3 mL) IM Q10M PRN 90 days risbfzcrllj-ezlfgibny-krbibgrz 200-62.5-25 mcg (Trelegy Ellipta) 1 inh inhalation DAILY 90 days gabapentin 300 mg PO TID galcanezumab-gnlm (Emgality Pen) 120 mg subcut ONCE 30 days hydrochlorothiazide 12.5 mg PO DAILY lidocaine 5% (Lidoderm) 1 patch topical DAILY 30 days loratadine 10 mg PO DAILY 90 days magnesium oxide 400 mg PO BID methenamine hippurate 1 g PO BID montelukast 10 mg PO DAILY 90 days nebulizers As directed nitrofurantoin monohyd/m-cryst 100 mg 1 cap PO Q12H nortriptyline 50 mg PO BEDTIME 90 days omeprazole 40 mg PO DAILY 30 days ondansetron 4 mg PO Q8H PRN potassium citrate ER (Urocit-K 10) 10 mEq PO TID rosuvastatin 0 mg PO sumatriptan succinate 50 mg PO Q2-4H PRN 30 days tamoxifen 10 mg PO DAILY terbinafine HCl 250 mg PO DAILY ubrogepant (Ubrelvy) 50 - 100 mg (0.5 - 1 x 100 mg) PO ONCE PRN 30 days umeclidinium 62.5 mcg/actuation (Incruse Ellipta) 1 inh inhalation DAILY 30 days zolpidem (Ambien) 5 mg PO BEDTIME PRN 30 days HPI Comments Details: 68-yr-old female presents for f/u visit. Pt denies any significant interval medical changes. Pt reports she has a strong headache 2 x's per week. The equality helps but had asked to refill nortriptyline- to optimize headcahes control more- but has not rec'd it yet. Ubrelvy helps but uses it sparingingly so she has it when she really needs it. Baseline headache characteristics: Aura: May see stars during the headache Severe pressure followed by stabbing pain in midfrontal region, may travel through the right side to the right neck. a/w Photophobia, phonophobia, allodynia, N/V, activity intolerence, watery eyes. Worsening BUE hands/fingers- tingling, PFSH Medical History Type 2 diabetes mellitus Varicose veins of bilateral lower extremities with pain GERD (gastroesophageal reflux disease) HLD (hyperlipidemia) History of renal calculi Hepatic steatosis History of breast cancer Chronic restrictive lung disease Insomnia Back pain Moderate persistent asthma Post herpetic neuralgia Kidney stones Chronic allergic rhinitis Atelectasis Asthma Surgical History History of colonoscopy (08/30/19) History of excision of mass (08/27/19) History of cholecystectomy (07/21/19) History of cystoscopy (2010) History of arthroplasty of knee (1993) History of hemorrhoidectomy (1983) History of 2 sections History of tonsillectomy and adenoidectomy (1965) History of hysterectomy for cancer Family History Father No problems noted. Mother No problems noted. Sister History of ovarian cancer, Onset Age: 49 Maternal Aunt History of breast cancer Maternal Aunt History of breast cancer Maternal Aunt History of breast cancer Maternal Aunt History of breast cancer Social History Alcohol intake: never Patient Tobacco Use Status: Never used Tobacco Physical Exam Vital Signs: Last Vital Signs Pulse 85 05/07/24 08:43 Resp 16 05/07/24 08:43 BP 112/68 05/07/24 08:43 Pulse Ox 96 05/07/24 08:43 Oxygen Delivery Method Room Air 05/07/24 08:43 BMI result Body Mass Index 29.2 Const General: cooperative and no acute distress Orientation/consciousness: patient oriented x3 Resp Effort & Inspection: normal respiratory effort and able to speak in complete sentences Neuro Other: Steady gait w/ cane General: patient oriented x3 Cranial nerves: Yes CN's II-XII intact bilaterally Cognition (Neuro): normal cognition Psych Appearance: grossly normal Mental Status: mental status grossly normal Speech and movement: Normal speech and movement present Affect: normal affect Attitude: cooperative Assessment & Plan Assessment & Plan (1) Migraine with aura: Code(s): G43.109 - Migraine with aura, not intractable, without status migrainosus Category: Medical (2) Weakness: Code(s): R53.1 - Weakness Category: Medical Plan Previous work-up: Brain MRI w/wo- Chronic microangiopathy and Left sphenoid sinusitis. Findings not likely to have caused paresthesias. BUE EMG/NCS- results were normal. Use her right wrist splint q.h.s., resume her upper extremity PT exercises, add upper extremity massages. Pt has f/u w/ insurance claims examiner today. ? ? For overall headache management: Continue to optimize good self-care, including but not limited to maintaining a healthy diet, adequate fluid intake, adequate sleep, and engaging in regular physical activity. Track headaches. ? For acute headache treatment: Continue Ubrogepant (Ubrelvy) 100mg tab, 1/2 - 1 tab (50-100mg) at onset of headache, may repeat in 2 hours. Max of 2 tabs (200mg) per 24 hours. May adjunct with OTC Tylenol 650mg q 4 hours. May use sumatriptan p.r.n. for rescue. Previous acute migraine medication trials: Sumatriptan inj- was helpful. Sumatriptan was helpful. Zolmitriptan- unsure of effect. Acute migraine medication contraindications: Excess use of Triptans d/t palpitations, HLD. ? For headache prevention medication: Continue Magnesium up to 400mg qhs Continue Emgality 120mg sc q month. May resume Nortriptyline 50mg qhs- monitor palpitations. Previous migraine prevention medication trials: Nortiptyline- was helpful. Migraine prevention medication contraindications: BBs d/t symptomatic asthma dx. TCAs d/t palpitations. Topiramate d/t h/o renal calculi. ? Pt to follow-up in 3-6 months or sooner prn. Medications: Refilled sumatriptan succinate do not exceed 2 doses per 24 hrs 50 mg PO Q2-4H PRN 12 tabs 6RF migraine headache 30 days nortriptyline 50 mg PO BEDTIME 90 caps 1RF 90 days Coding Level of Care Code Est Pt Level 4 (85817) Diagnoses Migraine with aura G43.109 Weakness R53.1
[2024-05-07 08:43] VITALS: BP 112/68; PULSE 85; RESP 16; O2SAT 96; BMI 29.2
== END 2024-05-07 09:39 | disposition home or self-care (01) ==
LOC: HO.HSMS 08:28
PROVIDERS: PCP Internal Medicine; Visit Provider Nurse Practitioner Family
DX: G43.109 Migraine with aura, not intractable, without status migrainosus (principal); R53.1 Weakness
CPT/HCPCS: 99214

== ENCOUNTER → 2024-05-07 08:28 | Outpatient (BNVA) | payer MEDICARE, SELFPAY | PROVIDERS: PCP Internal Medicine; Visit Provider Nurse Practitioner Family | DX: G43.109 Migraine with aura, not intractable, without status migrainosus (principal); R53.1 Weakness | CPT/HCPCS: 99212 ==

== ENCOUNTER 2024-06-11 09:25 | Outpatient (REF) | payer MEDICARE, SELFPAY ==
--- NOTE | ~2024-06-11 | MM_ITS ---
EXAMINATION: MM SCREENING DIGITAL BREAST TOMOSYNTHESIS, BILATERAL CLINICAL INFORMATION: Screening. Asymptomatic. Patient provides history remote right breast cancer, 2003. COMPARISON: Mammography: 06/10/2023, 04/30/2022, 05/04/2021, 07/15/2020, 06/01/2020, 05/07/2019, outside mammography 01/30/2019 and 01/25/2018 ([place]). TECHNIQUE: Digital breast tomosynthesis is performed in both the craniocaudal and mediolateral oblique views along with computer-aided detection (CAD). Synthesized 2D images are generated from the tomosynthesis. FINDINGS: There are scattered areas of fibroglandular density (ACR BI-RADS breast composition Category b). There are benign type calcifications in both breasts. There are no suspicious masses, suspicious grouped calcifications, or areas of architectural distortion in either breast. The parenchymal pattern is stable from prior exams. There is no skin or axillary abnormality. MM/MM tomosynthesis screening BI IMPRESSION: No mammographic evidence of malignancy. ASSESSMENT: BI-RADS BI-RADS 2 - Benign Findings RECOMMENDATION: Routine annual mammography screening. 1 year F/U This examination should not preclude the clinical evaluation of a suspicious palpable abnormality. This patient's information was entered into a reminder system with a target due date for their next mammogram.
== END 2024-06-11 09:26 | disposition home or self-care (01) ==
LOC: HO.MAMMO 09:25
PROVIDERS: PCP Internal Medicine; Visit Provider Surgery
DX: Z12.31 Encounter for screening mammogram for malignant neoplasm of breast (principal)
CPT/HCPCS: 77063; 77067

== ENCOUNTER → 2024-06-11 09:30 | Outpatient (BNV) | payer MEDICARE, SELFPAY | PROVIDERS: PCP Internal Medicine; Visit Provider Radiology Diagnostic Radiology | DX: Z12.31 Encounter for screening mammogram for malignant neoplasm of breast (principal) | CPT/HCPCS: 77063; 77067 ==

== ENCOUNTER 2024-06-30 09:24 | Outpatient (AMB) | payer MEDICARE, SELFPAY ==
--- NOTE | 2024-06-30 09:27 | A.OFFVIS_ITS ---
Vital Signs 06/30/24 09:33 Height 5 ft 3 in Weight 173 lb BMI 30.6 BP 117/57 L Blood Pressure Location Lt brachial Position Sitting Pulse 87 Intake Visit Reasons: 6 mth breast exam Intake Note: Patient is seen in office for 6 month follow up visit, breast exam. Patient c/o: continued right breast pain at all time to the touch mm:06/11/24 Induction Coordination Power Engineer Required: No Mixer Operator Hot Metal: Mixer Operator Hot Metal Present Accompanied by: Self / Same As Patient Allergies aspirin Allergy (Intermediate, Verified 06/30/24 09:33) Rash and Hives omalizumab [From Xolair] Allergy (Intermediate, Verified 06/30/24 09:33) Angioedema Almonds,hazenuts,fresh fruits, Allergy (Severe, Uncoded 06/30/24 09:33) Hives/Rash Chlorhexidine Allergy (Severe, Uncoded 06/30/24 09:33) Rash and Hives Dye DETENTION Blue 1 Allergy (Severe, Uncoded 06/30/24 09:33) Rash and Hives fresh fruits Allergy (Severe, Uncoded 06/30/24 09:33) Rash and Hives onions Allergy (Severe, Uncoded 06/30/24 09:33) Rash and Hives Chlora Prep Allergy (Intermediate, Uncoded 06/30/24 09:33) rash Medication List - Last Reconciled 06/30/24 by Bacilio Syed MD albuterol sulfate 90 mcg/actuation (ProAir HFA) 1 inh inhalation QID albuterol sulfate 90 mcg/actuation 2 puffs PO Q4H PRN 90 days albuterol sulfate 2.5 mg (3 mL) inhalation Q4-6H PRN benralizumab (Fasenra Pen) 30 mg subcut Q8W benzonatate 200 mg PO TID PRN budesonide-formoterol 160-4.5 mcg/actuation (Symbicort) 2 puffs inhalation BID 30 days desloratadine (Clarinex) 5 mg PO DAILY diclofenac sodium 1% 4 grams topical QID epinephrine (EpiPen 2-Teofilo) 0.3 mg (0.3 mL) IM Q10M PRN 90 days mhketvhspdv-uomkcnxwz-gtxbudkh 200-62.5-25 mcg (Trelegy Ellipta) 1 inh inhala tion DAILY 90 days gabapentin 300 mg PO TID galcanezumab-gnlm (Emgality Pen) 120 mg subcut ONCE 30 days hydrochlorothiazide 12.5 mg PO DAILY lidocaine 5% (Lidoderm) 1 patch topical DAILY 30 days loratadine 10 mg PO DAILY 90 days magnesium oxide 400 mg PO BID methenamine hippurate 1 g PO BID montelukast 10 mg PO DAILY 90 days nebulizers As directed nitrofurantoin monohyd/m-cryst 100 mg 1 cap PO Q12H nortriptyline 50 mg PO BEDTIME 90 days omeprazole 40 mg PO DAILY 30 days ondansetron 4 mg PO Q8H PRN potassium citrate ER (Urocit-K 10) 10 mEq PO TID rosuvastatin 0 mg PO sumatriptan succinate 50 mg PO Q2-4H PRN 30 days terbinafine HCl 250 mg PO DAILY ubrogepant (Ubrelvy) 50 - 100 mg (0.5 - 1 x 100 mg) PO ONCE PRN 30 days umeclidinium 62.5 mcg/actuation (Incruse Ellipta) 1 inh inhalation DAILY 30 days zolpidem (Ambien) 5 mg PO BEDTIME PRN 30 days HPI Comments Details: Evie Shahid is a 68-year-old former patient of Dr. Wells returning today for follow-up breast evaluation for breast pain.? She has a history of right-sided breast pain located mainly in the upper inner quadrant. She initially tried [place] oil without much success in later was started on tamoxifen by Dr. Wells.? Since starting the Low-dose tamoxifen she reported an improvement in her breast pain especially on the right side.? She denies any leg pain or leg swelling.? She denies any vaginal bleeding. She was previously on tamoxifen after developing right breast cancer which was treated at [facility] in 1998 (Dr. Eliza Quiroz).? She continues to feel improvement while taking the tamoxifen and is interested in continuing this medication. She denies any new breast symptoms. Her most recent mammogram 06/11/2024 revealed no mammographic evidence of malignancy (BI-RADS 2). REPLACED BY [facility] Medical History Type 2 diabetes mellitus Varicose veins of bilateral lower extremities with pain GERD (gastroesophageal reflux disease) HLD (hyperlipidemia) History of renal calculi Hepatic steatosis History of breast cancer Chronic restrictive lung disease Insomnia Back pain Moderate persistent asthma Post herpetic neuralgia Kidney stones Chronic allergic rhinitis Atelectasis Asthma Surgical History History of colonoscopy (08/30/19) History of excision of mass (08/27/19) History of cholecystectomy (07/21/19) History of cystoscopy (2010) History of arthroplasty of knee (1993) History of hemorrhoidectomy (1983) History of 2 sections History of tonsillectomy and adenoidectomy (1965) History of hysterectomy for cancer Family History Father No problems noted. Mother No problems noted. Sister History of ovarian cancer, Onset Age: 49 Maternal Aunt History of breast cancer Maternal Aunt History of breast cancer Maternal Aunt History of breast cancer Maternal Aunt History of breast cancer Social History Alcohol intake: never Patient Tobacco Use Status: Never used Tobacco Review of Systems Const Denies anorexia and Denies chills Card Denies chest pain Resp Reports cough and Reports wheezing GI Denies abdominal pain Denies nipple discharge Musc Denies no additional complaints Skin/Breast Denies breast swelling, Reports breast pain, Denies breast mass and Denies nipple discharge Psych Denies no additional complaints Niranjan/Lymph Denies easy bleeding and Denies lymphadenopathy Aller/Immun Reports wheezing Physical Exam Vital Signs: Last Vital Signs Pulse 87 06/30/24 09:33 BP 117/57 L 06/30/24 09:33 BMI result Body Mass Index 30.6 Const General: cooperative, healthy appearing, comfortable and no acute distress Chest Other: Left breast: No skin change, no nipple retraction, no nipple discharge, no palpable mass, no enlarged lymph nodes, and no tenderness. Right breast: No skin change, no nipple retraction, no nipple discharge, no palpable mass, no enlarged lymph nodes; diffuse mild tenderness in both the inner upper and lower quadrants with some mild fibrocystic change. No change from prior examinations. Resp Effort & Inspection: normal respiratory effort, no cough and no stridor GI Inspection: Yes normal to inspection Skin Other: Warm and dry, no rash General skin exam: no rashes or lesions noted Neuro Other: Alert and oriented x3, patient uses a cane for ambulation Extrem General: Yes no clubbing, cyanosis or edema Assessment & Plan Assessment & Plan (1) Breast pain: Code(s): N64.4 - Mastodynia Category: Medical Plan: Patient returns for follow-up examination after starting low-dose tamoxifen for breast pain. She has now completed approximately 5 years of treatment with no apparent side effects. Examination today revealed mild tenderness especially in the upper inner quadrant of the right breast. Examination however reveals no suspicious findings in either breast. Her most recent mammogram of 06/11/2024 revealed no mammographic evidence of malignancy ( BI-RADS 2). I recommended stopping the tamoxifen. She will return in 6 months for follow-up breast examination. She does have a strong history of breast cancer in her family with 4 maternal aunts having developed breast cancer. We discussed genetic testing but she is not interested at this time. Follow-up mammogram is recommended in 1 year. Coding Level of Care Code Est Pt Level 3 (64864) Diagnoses Breast pain N64.4
[2024-06-30 09:33] VITALS: BP 117/57; PULSE 87; BMI 30.6
== END 2024-06-30 09:45 | disposition home or self-care (01) ==
PROVIDERS: PCP Internal Medicine; Visit Provider Surgery
DX: N64.4 Mastodynia (principal)
CPT/HCPCS: 99213

== ENCOUNTER → 2024-06-30 09:24 | Outpatient (BNVA) | payer MEDICARE, SELFPAY | PROVIDERS: PCP Internal Medicine; Visit Provider Surgery | DX: N64.4 Mastodynia (principal); Z90.710 Acquired absence of both cervix and uterus; Z85.3 Personal history of malignant neoplasm of breast; Z80.3 Family history of malignant neoplasm of breast; Z80.41 Family history of malignant neoplasm of ovary | CPT/HCPCS: 99212 ==

== ENCOUNTER 2024-07-01 10:55 | Outpatient (AMB) | payer MEDICARE, SELFPAY ==
[2024-07-01 10:59] VITALS: PULSE 89; O2SAT 98; BMI 30.5
--- NOTE | 2024-07-01 10:59 | MHC.OFFVIS ---
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 Allergies aspirin Allergy (Intermediate, Verified 07/01/24 11:00) Rash and Hives omalizumab [From Xolair] Allergy (Intermediate, Verified 07/01/24 11:00) Angioedema Almonds,hazenuts,fresh fruits, Allergy (Severe, Uncoded 07/01/24 11:00) Hives/Rash Chlorhexidine Allergy (Severe, Uncoded 07/01/24 11:00) Rash and Hives Dye CUSTODIAL Blue 1 Allergy (Severe, Uncoded 07/01/24 11:00) Rash and Hives fresh fruits Allergy (Severe, Uncoded 07/01/24 11:00) Rash and Hives onions Allergy (Severe, Uncoded 07/01/24 11:00) Rash and Hives Chlora Prep Allergy (Intermediate, Uncoded 07/01/24 11:00) rash HPI Comments Details: The patient is a 68-year-old woman with a known history of asthma in addition to systemic lupus erythematous. Will or she continues to use her respiratory therapy regularly. Has not had any recent flares or need for prednisone. Seems like it lupus is under control. However, the patient is presenting now with left-sided pleuritic discomfort mainly in the upper part of her left lung. This started happening for the last day or 2. It seems to be getting worse. Moderate in severity. Not associated with any fevers or chills. She has noticed increased rash sometimes getting blotches of January under scan that are tender. 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 The last kidney function was normal. The patient has not had any recent x-rays or blood work. We did do a blood work evaluation to see if she has any active lupus and we didn't see any significance. We talked about Plaquenil also potential therapy however. In the meantime the patient continues having this discomfort. Her x-ray appear to be relatively clear was not helpful trying to explain the right-sided pleuritic discomfort. She may have a neuromuscular component. But at this time with history lupus we have to make sure she the doesn't have any evidence of any pneumonitis or pleuritis. She does have an allergic reaction to dye as we cannot use that at this time. Will requested non contrast CT scan of the chest. In the meantime will try Plaquenil and consider he given some prednisone. We did do the blood work to assess lupus activity and her complement levels were within normal and her double strand DNA was also undetectable. Therefore, does not appear to have any lupus activity. Her CT scan of the chest is also reassuring. She has areas of atelectasis but no other findings to suggest active connective tissue disease at this time. Her pleural lining appears to be well visualized without any significant thickening or inflammation or effusions. 09/26/2020 the patient has a pulmonary follow-up visit. Overall she is feeling better now. Last month she did have increasing asthma symptoms and did have GI symptoms as well as fatigue. She did lose about 12 lb. Her respiratory status is better. She denied any fevers and denies any exposure to anyone with COVID-19 infection of the time. At this point based on her symptoms it is reasonable to check her for potential COVID-19 exposure with her antibodies. Again we did review her CT scan of the chest demonstrating some atelectasis and some scarring but otherwise no evidence of any interstitial lung disease to be concerned about. No need to follow this at this time. We talked about her respiratory medications. The patient has been on the Trelegy which appears to be effective but sometimes she feels like is not strong enough. At this point is reasonable to increase the dose to the higher dose which is a 200 mcg. In the meantime she does have significant allergies and therefore will check her allergy levels to see if she has a candidate for any allergy therapies or biologic therapy at this time. 07/05/2023 the patient is here for a pulmonary follow-up visit. Her respiratory status seems to be doing better on the Trelegy inhaler and also on the Fasenra injections. She has been having some chest discomfort her. Pleuritic in nature. She had been on Plaquenil before and did help her with her symptoms. Explained to her that this is not a medication that she can take regularly. I will prescribe for 1 month and afterwards if she needs additional or she feels that she wants to continue it she needs to talk to primary care or Rheumatology. The patient is also having some difficulty sleeping. She is using the melatonin. She is not using the trazodone. When she does sleep she does wake up tired. Her [place] score is elevated 10/24. She does have intermittent headaches. She does have snoring. Will request a sleep study at this time. 01/03/2024 the patient is here for pulmonary follow-up visit. Overall the patient has been doing well on the current respiratory regimen. She is responded well to the Trelegy inhaler and also the Fasenra injections. He has been getting the every 8 weeks. Denies any adverse effects from the medications. Her asthma has been significantly improved. Has not required any prednisone which is reassuring. In the meantime she has been struggling with her sleep. She is tried multiple medication including trazodone in the past without any significant improvement. She continues to have significant daytime drowsiness. The patient did undergo home sleep study which we personally viewed in the office. No evidence of any significant sleep apnea documented in the home sleep study. Will go ahead and try her on a small dose of zolpidem the hopes that she gets enough sleep. She knows to take the medication right at sleep time and not to plan any activities after taking the medication. The patient will monitor closely symptoms and hopefully she has improvement with smaller dose of the zolpidem. Otherwise patient is doing well. Will plan to follow-up in 4-6 months. 07/01/2024 the patient is here for a pulmonary follow-up visit. Overall the patient has been doing okay. She has been complaining of worsening dyspnea on exertion her. [id number] severity. Specially when she goes up a flight of stairs. She does use a cane. She does have back issues. From an asthma standpoint the patient is doing very good on the biologic therapy, Fasenra. She also continues on Trelegy. She has not required any prednisone nor her rescue inhaler. And her respiratory exam is reassuring. She did have a chest x-ray which I reviewed demonstrating no acute disease. In addition to that she did have blood work back in December demonstrating no evidence of any anemia or anything else that can explain shortness of breath. On further questioning she does state having some chest pressure and pain at times. Although is transient. She does not have any chest discomfort at this time. Sometimes she does feel palpitations and increased heart rate. We did go for brief walking oximetry in the office in heart rate did increase to about 112 beats per minute with minimal activity. Oxygen was normal. Based on her ongoing symptoms will go ahead and refer her to Cardiology. To further address her symptoms and likely will need a stress test. She will not be able to do a treadmill since she does have a cane. From an allergy standpoint the patient is doing well on the current therapy will continue it at this time. From vaccine standpoint she is does not use any vaccines will hold off on those as well. Will follow-up in 6 months or sooner if she develops any worsening issues. [facility] Medical History (Updated 07/01/24 @ 12:15 by Devon Lebron MD) Chest pain Tachycardia Type 2 diabetes mellitus Varicose veins of bilateral lower extremities with pain GERD (gastroesophageal reflux disease) HLD (hyperlipidemia) History of renal calculi Hepatic steatosis History of breast cancer Chronic restrictive lung disease Insomnia Back pain Moderate persistent asthma Post herpetic neuralgia Kidney stones Chronic allergic rhinitis Atelectasis Asthma Surgical History History of colonoscopy (08/30/19) History of excision of mass (08/27/19) History of cholecystectomy (07/21/19) History of cystoscopy (2010) History of arthroplasty of knee (1993) History of hemorrhoidectomy (1983) History of 2 sections History of tonsillectomy and adenoidectomy (1965) History of hysterectomy for cancer Family History Father No problems noted. Mother No problems noted. Sister History of ovarian cancer, Onset Age: 49 Maternal Aunt History of breast cancer Maternal Aunt History of breast cancer Maternal Aunt History of breast cancer Maternal Aunt History of breast cancer Social History Alcohol intake: never Patient Tobacco Use Status: Never used Tobacco Review of Systems Const Denies anorexia, Denies chills, Reports daytime sleepiness and Reports difficulty sleeping Card Reports chest pain and Reports dyspnea on exertion Resp Reports cough, Reports dyspnea on exertion and Denies wheezing GI Denies abdominal pain Denies nipple discharge Musc Reports abnormal gait, Reports myalgias, Reports arthralgias and Reports muscle weakness Skin/Breast Denies breast swelling, Reports breast pain, Denies breast mass and Denies nipple discharge Neuro Reports abnormal gait Psych Denies no additional complaints Niranjan/Lymph Denies easy bleeding and Denies lymphadenopathy Aller/Immun Denies wheezing Physical Exam Vital Signs: Last Vital Signs Pulse 89 07/01/24 10:59 Pulse Ox 98 07/01/24 10:59 Oxygen Delivery Method Room Air 07/01/24 10:59 BMI result Body Mass Index 30.5 Const General: alert Neck Neck: Yes normal visual inspection, Yes full ROM and Yes no lymphadenopathy Chest Chest palpation & inspection: normal inspection of the chest Resp Effort & Inspection: normal respiratory effort Auscultation: clear to auscultation bilaterally Cardio Rate: regular rate Rhythm: regular rhythm Heart sounds: S1 normal heart sound present and S2 normal heart sound present GI Palpation (GI): Soft to palpation and nontender Auscultation: normal bowel sounds Skin General skin exam: rashes and/or lesions noted Assessment & Plan Assessment & Plan (1) Asthma: Code(s): J45.909 - Unspecified asthma, uncomplicated Category: Medical Qualifiers: Asthma complication type: uncomplicated Asthma persistence: persistent Asthma severity: severe Qualified Code(s): J45.50 - Severe persistent asthma, uncomplicated (2) Chronic allergic rhinitis: Code(s): J30.9 - Allergic rhinitis, unspecified Category: Medical (3) Atelectasis: Code(s): J98.11 - Atelectasis Category: Medical (4) Insomnia: Code(s): G47.00 - Insomnia, unspecified Category: Medical Qualifiers: Insomnia type: primary Qualified Code(s): F51.01 - Primary insomnia (5) Tachycardia: Code(s): R00.0 - Tachycardia, unspecified Category: Medical (6) Dyspnea: Code(s): R06.00 - Dyspnea, unspecified Category: Medical Qualifiers: Dyspnea type: dyspnea on exertion Qualified Code(s): R06.09 - Other forms of dyspnea Plan continue Trelegy continue Melatonin ZOË as needed continue singular continue Claritin continue Fasenra Q8 weeks cardiology evaluation F/U 6 months Orders: Referrals Cardiology Referral R00.0 - Tachycardia, unspecified, R06.00 - Dyspnea, unspecified, R07.9 - Chest pain, unspecified Coding Level of Care Code Est Pt Level 4 (03822) Diagnoses Severe persistent asthma without complication J45.50 Asthma complication type: uncomplicated Asthma persistence: persistent Asthma severity: severe Chronic allergic rhinitis J30.9 Atelectasis J98.11 Primary insomnia F51.01 Insomnia type: primary Tachycardia R00.0 Dyspnea on exertion R06.09 Dyspnea type: dyspnea on exertion Time Spent (min) 17
== END 2024-07-01 11:23 | disposition home or self-care (01) ==
PROVIDERS: PCP Internal Medicine; Visit Provider Hospitalist
DX: J45.50 Severe persistent asthma, uncomplicated (principal); J30.9 Allergic rhinitis, unspecified; J98.11 Atelectasis; F51.01 Primary insomnia; R00.0 Tachycardia, unspecified; R06.09 Other forms of dyspnea
CPT/HCPCS: 99214

== ENCOUNTER → 2024-07-01 10:55 | Outpatient (BNVA) | payer MEDICARE, SELFPAY | PROVIDERS: PCP Internal Medicine; Visit Provider Hospitalist | DX: J45.50 Severe persistent asthma, uncomplicated (principal); J30.9 Allergic rhinitis, unspecified; J98.11 Atelectasis; F51.01 Primary insomnia; R00.0 Tachycardia, unspecified; R06.09 Other forms of dyspnea; M32.9 Systemic lupus erythematosus, unspecified | CPT/HCPCS: 99212 ==

== ENCOUNTER 2024-10-14 08:53 | Outpatient (AMB) | payer MEDICARE, SELFPAY ==
[2024-10-14 09:44] VITALS: BP 116/68; PULSE 103; O2SAT 96; BMI 29.8
--- NOTE | 2024-10-14 09:44 | A.OFFVIS_ITS ---
Vital Signs 10/14/24 09:44 Height 5 ft 3 in Weight 168 lb 6.931 oz BMI 29.8 BP 116/68 Blood Pressure Location Lt brachial Position Sitting Pulse 103 H Pulse Source Pulse Oximeter Pulse Oximetry (%) 96 Oxygen Delivery Method Room Air Intake Visit Reasons: Knee pain/inj/cm/ATC MR RECIEVED Intake Note: Patient is here for left knee pain and injection. Allergies aspirin Allergy (Intermediate, Verified 07/01/24 11:00) Rash and Hives omalizumab [From Xolair] Allergy (Intermediate, Verified 07/01/24 11:00) Angioedema Almonds,hazenuts,fresh fruits, Allergy (Severe, Uncoded 07/01/24 11:00) Hives/Rash Chlorhexidine Allergy (Severe, Uncoded 07/01/24 11:00) Rash and Hives Dye [facility] Blue 1 Allergy (Severe, Uncoded 07/01/24 11:00) Rash and Hives fresh fruits Allergy (Severe, Uncoded 07/01/24 11:00) Rash and Hives onions Allergy (Severe, Uncoded 07/01/24 11:00) Rash and Hives Chlora Prep Allergy (Intermediate, Uncoded 07/01/24 11:00) rash peanuts Allergy (Intermediate, Uncoded 10/14/24 09:46) Rash HPI HPI Knee pain/inj/cm/ATC MR RECIEVED: Details: In the last 2 months she has been having increased left knee worse than right knee pain with pain isolated to the posterior knee. Denies joint swelling. She has been using the stairs more due to deep cleaning which is exacerbating her pain. Currently using Tylenol [id number] mg daily. She avoids oral NSAIDs due to aspirin allergy. Diclofenac gel 1% apply to knee b.i.d. is helpful. She has been using left knee hinged brace when ambulating for a few hours. [facility] Medical History (Updated 10/14/24 @ 11:27 by Soto Mcfadden MD) Chest pain Tachycardia Type 2 diabetes mellitus Varicose veins of bilateral lower extremities with pain GERD (gastroesophageal reflux disease) HLD (hyperlipidemia) History of renal calculi Hepatic steatosis History of breast cancer Chronic restrictive lung disease Insomnia Back pain Moderate persistent asthma Post herpetic neuralgia Kidney stones Chronic allergic rhinitis Atelectasis Asthma Surgical History History of colonoscopy (08/30/19) History of excision of mass (08/27/19) History of cholecystectomy (07/21/19) History of cystoscopy (2010) History of arthroplasty of knee (1993) History of hemorrhoidectomy (1983) History of 2 sections History of tonsillectomy and adenoidectomy (1965) History of hysterectomy for cancer Family History Father No problems noted. Mother No problems noted. Sister History of ovarian cancer, Onset Age: 49 Maternal Aunt History of breast cancer Maternal Aunt History of breast cancer Maternal Aunt History of breast cancer Maternal Aunt History of breast cancer Social History Alcohol intake: never Patient Tobacco Use Status: Never used Tobacco Review of Systems Const All systems reviewed & are unremarkable except as noted in HPI and below Physical Exam Vital Signs: Last Vital Signs Pulse 103 H 10/14/24 09:44 BP 116/68 10/14/24 09:44 Pulse Ox 96 10/14/24 09:44 Oxygen Delivery Method Room Air 10/14/24 09:44 BMI result Body Mass Index 29.8 Const Other: General: Comfortable CVS: RRR Respiratory: clear to auscultation bilaterally. Good respiratory effort Skin: No lesions seen MSK: Bilateral hamstrings tender with swelling of left medial hamstring. Pain at the tendon attachment of hamstrings on palpation. Joint line tenderness of bilateral knees. No joint effusion. No popliteal cyst appreciated. Knee flexion is normal. Assessment & Plan Assessment & Plan (1) Hamstring strain: Comment: Bilateral left worse than right. We discussed conservative management. Code(s): S76.319A - Strain of muscle, fascia and tendon of the posterior muscle group at thigh level, unspecified thigh, initial encounter Category: Medical Qualifiers: Encounter type: initial encounter Laterality: unspecified laterality Qualified Code(s): S76.319A - Strain of muscle, fascia and tendon of the posterior muscle group at thigh level, unspecified thigh, initial encounter Plan: I play ice to the affected area twice a day. Try considering purchasing knee ice wrap Continue Tylenol maximum dose 4000 mg daily Continue diclofenac gel 1% apply to affected area twice a day minimum. She can use up to 4 times a day. Aspirin allergy. Contraindication to oral NSAID use. PT referral placed Continue to wear knee hinged brace Return to clinic in 3 months (2) Osteoarthritis of knees, bilateral: Comment: Pain is uncontrolled. Hamstring strain is contributing to most of her pain with concurrent osteoarthritis in the background. We discussed conservative management. Code(s): M17.0 - Bilateral primary osteoarthritis of knee Category: Medical Qualifiers: Osteoarthritis type: primary Qualified Code(s): M17.0 - Bilateral primary osteoarthritis of knee Plan: See above. (3) Osteoarthritis of CMC joint of thumb: Comment: Pain is controlled with last cortisone injection Code(s): M18.9 - Osteoarthritis of first carpometacarpal joint, unspecified Category: Medical Qualifiers: Osteoarthritis type: primary Laterality: left Qualified Code(s): M18.12 - Unilateral primary osteoarthritis of first carpometacarpal joint, left hand Plan: Continue to monitor clinically Orders: Referrals Physical Medicine and Rehabilitation Referral M17.0 - Bilateral primary osteoarthritis of knee, S76.319A - Strain of muscle, fascia and tendon of the posterior muscle group at thigh level, unspecified thigh, initial encounter Coding Level of Care Code Est Pt Level 3 (54426) Complex EM visit Add On G2211 Diagnoses Hamstring strain, unspecified laterality, initial encounter S76.319A Encounter type: initial encounter Laterality: unspecified laterality Primary osteoarthritis of both knees M17.0 Osteoarthritis type: primary Primary osteoarthritis of first carpometacarpal joint of left hand M18.12 Osteoarthritis type: primary Laterality: left
== END 2024-10-14 10:16 | disposition home or self-care (01) ==
PROVIDERS: PCP Internal Medicine; Visit Provider Internal Medicine Rheumatology
DX: S76.319A Strain of muscle, fascia and tendon of the posterior muscle group at thigh level, unspecified thigh, initial encounter (principal); M17.0 Bilateral primary osteoarthritis of knee; M18.12 Unilateral primary osteoarthritis of first carpometacarpal joint, left hand
CPT/HCPCS: 99213; G2211

== ENCOUNTER → 2024-10-14 08:53 | Outpatient (BNVA) | payer MEDICARE, SELFPAY | PROVIDERS: PCP Internal Medicine; Visit Provider Internal Medicine Rheumatology | DX: S76.319A Strain of muscle, fascia and tendon of the posterior muscle group at thigh level, unspecified thigh, initial encounter (principal); M17.0 Bilateral primary osteoarthritis of knee; M18.12 Unilateral primary osteoarthritis of first carpometacarpal joint, left hand | CPT/HCPCS: 99212 ==

== ENCOUNTER 2024-10-28 14:19 | Outpatient (AMB) | payer MEDICARE, SELFPAY ==
--- NOTE | 2024-10-28 14:42 | MHC.OFFVIS ---
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/?Tachycardia Allergies aspirin Allergy (Intermediate, Verified 07/01/24 11:00) Rash and Hives omalizumab [From Xolair] Allergy (Intermediate, Verified 07/01/24 11:00) Angioedema Almonds,hazenuts,fresh fruits, Allergy (Severe, Uncoded 07/01/24 11:00) Hives/Rash Chlorhexidine Allergy (Severe, Uncoded 07/01/24 11:00) Rash and Hives Dye LONGTERM Blue 1 Allergy (Severe, Uncoded 07/01/24 11:00) Rash and Hives fresh fruits Allergy (Severe, Uncoded 07/01/24 11:00) Rash and Hives onions Allergy (Severe, Uncoded 07/01/24 11:00) Rash and Hives Chlora Prep Allergy (Intermediate, Uncoded 07/01/24 11:00) rash peanuts Allergy (Intermediate, Uncoded 10/14/24 09:46) Rash Medication List - Last Reconciled 10/28/24 by Serge Parks NP acetaminophen (Tylenol Extra Strength) 500 mg PO Q6H PRN albuterol sulfate 90 mcg/actuation (ProAir HFA) 1 inh inhalation QID albuterol sulfate 90 mcg/actuation 2 puffs PO Q4H PRN 90 days albuterol sulfate 2.5 mg (3 mL) inhalation Q4-6H PRN benralizumab (Fasenra Pen) 30 mg subcut Q8W benzonatate 200 mg PO TID PRN budesonide-formoterol 160-4.5 mcg/actuation (Symbicort) 2 puffs inhalation BID 30 days desloratadine (Clarinex) 5 mg PO DAILY diclofenac sodium 1% 4 grams topical QID epinephrine (EpiPen 2-Teofilo) 0.3 mg (0.3 mL) IM Q10M PRN 90 days famotidine 40 mg PO BID abzqyxhplgc-imkgphsxl-lcbsmxht 200-62.5-25 mcg (Trelegy Ellipta) 1 inh inhalation DAILY 90 days galcanezumab-gnlm (Emgality Pen) 120 mg subcut ONCE 30 days hydrochlorothiazide 12.5 mg PO DAILY lidocaine 5% (Lidoderm) 1 patch topical DAILY 30 days loratadine 10 mg PO DAILY 90 days magnesium oxide 400 mg PO BID methenamine hippurate 1 g PO BID montelukast 10 mg PO DAILY 90 days nebulizers As directed nitrofurantoin monohyd/m-cryst 100 mg 1 cap PO Q12H nortriptyline 50 mg PO BEDTIME 90 days omeprazole 40 mg PO DAILY 30 days ondansetron 4 mg PO Q8H PRN potassium citrate ER (Urocit-K 10) 10 mEq PO TID rosuvastatin 0 mg PO sumatriptan succinate 50 mg PO Q2-4H PRN 30 days terbinafine HCl 250 mg PO DAILY ubrogepant (Ubrelvy) 50 - 100 mg (0.5 - 1 x 100 mg) PO ONCE PRN 30 days umeclidinium 62.5 mcg/actuation (Incruse Ellipta) 1 inh inhalation DAILY 30 days zolpidem (Ambien) 5 mg PO BEDTIME PRN 30 days HPI Comments Details: This is a 68-year-old female with a history of asthma, hyperlipidemia and systemic lupus erythematosus, referred from pulmonology for evaluation of ongoing chest pain and palpitations. She reports having previously been evaluated by [facility] for chest pain, which included a nuclear stress test and echocardiogram, both of which were negative. She was never told of any blockages but was referred to vascular surgery for varicose veins. The patient notes she was informed of having an irregular heartbeat, although there are no available records confirming this. She indicates that the chest pain has persisted and she did not follow up with cardiology due to the pandemic. The pain is described as sharp, located in the mid-sternal area and radiating to the right side of her chest, accompanied by numbness and tingling in her right arm. The pain is triggered by both stress and exertion, such as walking up flight of stairs. Since her last cardiology visit, the pain has not resolved and is now more intense. The pain typically subsides with rest, and she has been managing it with Tylenol. In addition to the chest pain, she reports an increase in heart palpitations that occur spontaneously. She denies experiencing shortness of breath, dizziness, presyncope, or syncope. [facility] Medical History Chest pain Tachycardia Type 2 diabetes mellitus Varicose veins of bilateral lower extremities with pain GERD (gastroesophageal reflux disease) HLD (hyperlipidemia) History of renal calculi Hepatic steatosis History of breast cancer Chronic restrictive lung disease Insomnia Back pain Moderate persistent asthma Post herpetic neuralgia Kidney stones Chronic allergic rhinitis Atelectasis Asthma Surgical History History of colonoscopy (08/30/19) History of excision of mass (08/27/19) History of cholecystectomy (07/21/19) History of cystoscopy (2010) History of arthroplasty of knee (1993) History of hemorrhoidectomy (1983) History of 2 sections History of tonsillectomy and adenoidectomy (1965) History of hysterectomy for cancer Family History Father No problems noted. Mother Chest pain Sister History of ovarian cancer, Onset Age: 49 Afib Maternal Aunt History of breast cancer Maternal Aunt History of breast cancer Maternal Aunt History of breast cancer Maternal Aunt History of breast cancer Social History Alcohol intake: never Patient Tobacco Use Status: Never used Tobacco Review of Systems Const Denies weakness ENT Denies dizziness Card Reports chest pain, Denies chest pain with activity, Denies syncope, Denies rapid heart rate, Denies pedal edema, Denies edema, Denies leg edema, Denies lightheadedness, Denies palpitations, Denies dyspnea, Denies dyspnea on exertion and Denies orthopnea Resp Denies cough, Denies dyspnea and Denies dyspnea on exertion GI Denies hematochezia and Denies change in stool character Musc Denies abnormal gait, Denies muscle cramps, Denies muscle weakness, Denies numbness, Denies radiating pain into limb and Denies tingling Neuro Denies abnormal gait, Denies dizziness, Denies syncope, Denies numbness, Denies tingling and Denies weakness Endo Denies palpitations Physical Exam Vital Signs: Last Vital Signs Pulse 84 10/28/24 14:43 BP 118/68 10/28/24 14:43 BMI result Body Mass Index 29.6 Const General: cooperative, healthy appearing, comfortable and no acute distress Orientation/consciousness: patient oriented x3 HEENT Other: Unremarkable Head: Yes normal to inspection Neck Neck: Yes normal visual inspection, Yes trachea midline and Yes supple Chest Chest palpation & inspection: normal inspection of the chest Resp Effort & Inspection: normal respiratory effort Auscultation: clear to auscultation bilaterally, no crackles, no rales, no rhonchi and no wheezes Cardio Palpation: normal PMI Rate: regular rate Rhythm: regular rhythm Heart sounds: S1 normal heart sound present, S2 normal heart sound present, no click, no gallops, no murmurs and no rubs GI Palpation (GI): Soft to palpation Auscultation: normal bowel sounds Back/Spine/Pelvis Other: unremarkable Skin General skin exam: no rashes or lesions noted Neuro General: patient oriented x3 Extrem General: Yes normal to inspection and No edema Psych Appearance: grossly normal Mental Status: mental status grossly normal Office Procedures EKG Details: EKG with underlying normal sinus rhythm at 84 beats per minute, incomplete right bundle branch block, left axis deviation, nonspecific ST-T changes, [place] SD interval, [place]. [id number], Complete Assessment & Plan Assessment & Plan (1) Chest pain: Code(s): R07.9 - Chest pain, unspecified Category: Medical Plan: Echo from 2019 showed LVEF of 55-60%. Myocardial perfusion study from 2019 showed EF of greater than 75% at rest and 65% after Lexiscan with normal wall motion and thickening. Given the patient's ongoing symptoms, we will get a cardiac CTA to evaluate for any coronary artery disease. Given patient's history of contrast dye allergy, patient has been instructed to take prednisone, Pepcid, and Benadryl the day before and morning of the procedure. We will also get a repeat echo to reassess patient's cardiac function. Patient should continue to take her rosuvastatin as prescribed, reports her cholesterol levels have been well controlled according to her primary care although no recent labs are available to us at this time. (2) Palpitations: Code(s): R00.2 - Palpitations Category: Medical Plan: Patient reports experiencing palpitations for the past few months, occurring at least twice a week with no clear pattern. She was once told that she had an irregular heartbeat, however no records of it. We will get a 7 day Holter monitor. EKG today showed no ectopies. Time spent in reviewing the chart, test results, assessment, documentation. Orders: Orders ECG 7 day holter monitor Today R00.2 - Palpitations CA echo transthoracic complete Today R07.9 - Chest pain, unspecified CT Cardiac Coronary Angio Today R07.9 - Chest pain, unspecified Basic Metabolic Panel Today R07.9 - Chest pain, unspecified AMB EKG-In Office Today R07.9 - Chest pain, unspecified Medications: New prednisone Start one day before and last dose on morning of the procedure 40 mg (2 x 20 mg) PO BID 5 tabs 0RF diphenhydramine HCl (Benadryl Allergy) start 1 day before and last dose on morning of procedure 50 mg PO BID 3 tabs 0RF sleep famotidine start 1 day before and last dose on morning of procedure. 20 mg PO BID 3 tabs 0RF Coding Level of Care Code New Pt Level 4 (98450) Diagnoses Chest pain R07.9 Palpitations R00.2 CPT Codes EKG - CPT: 13386-[id number], Complete ([id number]) Time Spent (min) 35
[2024-10-28 14:43] VITALS: BP 118/68; PULSE 84; BMI 29.6
== END 2024-10-28 16:14 | disposition home or self-care (01) ==
PROVIDERS: PCP Internal Medicine; Visit Provider Internal Medicine
DX: R07.9 Chest pain, unspecified (principal); R00.2 Palpitations
CPT/HCPCS: 93010; 99204

== ENCOUNTER → 2024-10-28 14:19 | Outpatient (BNVA) | payer MEDICARE, SELFPAY | PROVIDERS: PCP Internal Medicine; Visit Provider Internal Medicine | DX: I45.10 Unspecified right bundle-branch block (principal); R00.2 Palpitations; R07.9 Chest pain, unspecified | CPT/HCPCS: 93005; 99202 ==

== ENCOUNTER → 2024-11-23 12:16 | Outpatient (REF) | payer MEDICARE, SELFPAY ==
--- NOTE | 2024-11-23 12:20 | CA_ITS ---
Transthoracic Echocardiogram Patient (Last, First, Middle): Evie Shahid M Gender: Female Date of : 1955 Age: 69 Procedure Date: 11/23/2024 Procedure Type: Transthoracic Echocardiogram Location: OP Height: 160.02 cm Weight: 74.39 kg BSA: 1.78 m2 Heart Rate: bpm BP: 110 / 70 mmHg Basin Finish Operator Tig Welder: KENDALL Referring MD: Serge Parks VISUAL TRAINING AIDE Symptoms: R07.9 - Chest pain, unspecified Study Quality: Adequate ECG Rhythm: Sinus Conclusions: - The left ventricular systolic function is normal. The calculated ejection fraction is 59% by biplane method. - There is mild to moderate tricuspid valve regurgitation. Findings Left Ventricle Normal left ventricular cavity size. There is normal left ventricular wall thickness. The left ventricular systolic function is normal. The calculated ejection fraction is 59% by biplane method. There is no evidence of regional wall motion abnormalities. Diastolic function is normal for age. Right Ventricle Normal right ventricular cavity size and systolic function. Atria Both atria are normal in size. Aortic Valve The aortic valve structure and function is likely normal. There is no aortic valve stenosis. There is no aortic valve regurgitation. Mitral Valve The mitral valve appears normal. There is no mitral valve regurgitation. There is no mitral valve stenosis. Pulmonic Valve The pulmonic valve is likely normal. Tricuspid Valve There is mild to moderate tricuspid valve regurgitation. There is no evidence of pulmonary hypertension. Great Vessels The asc aorta and aortic arch are normal in size. Venous The inferior vena cava is normal in size and collapses greater than 50% with inspiration. Pericardium/Pleural There is no evidence of pericardial effusion. Prior Study Comparison No prior study available for comparison. Measurements 2D Linear Measurements IVSd: 0.78 0.6-0.9/0.6-1.0 cm LVIDd: 4.36 3.9-5.3/4.2-5.9 cm LVIDd Index: 2.45 2.4-3.2/2.2-3.1 cm/m2 LVIDs: 2.40 2.0-3.6 cm LVPWd: 0.87 0.7-1.1 cm LA Diam: 3.20 2.7-3.8/3.0-4.0 cm LAIDs Index: 1.80 1.5-2.3 cm/m2 LV Mass: 139.46 67-162/88-224 g LV Mass Index: 78.35 43-95/49-115 g/m2 LVOT Diam: 1.80 3.0+(-)1.3 cm 2D Systolic Function EF 4C: 58.40 >55% EF 2C: 61.30 >55% EF BiP: 59.40 >55% Mitral Valve MV Pk E: 0.51 MV PK A: 0.83 MV Decel Time: 198.00 E/A: 0.60 E'Lateral: 9.57 E'Medial: 6.96 E/E' Med: 7.40 E/E' Lat: 5.40 PHT: 58.00 MVA PHT: 3.79 Decel Bent: 2.59 Aortic Valve AoV Pk Rojelio: 1.36 AoV Mn Roejlio: 0.90 AoV VTI: 0.26 AoV Pk Grad: 7.00 Aov Mn Grad: 4.00 RODRIGO Cont.VTI: 1.71 LVOT LVOT Pk Rojelio: 0.88 LVOT Mn Rojelio: 0.61 LVOT VTI: 0.18 LVOT Pk Grad: 3.00 LVOT Mn Grad: 2.00 LVOT Diam: 1.80 LVOT Area: 2.54 Diastolic Function MV Pk E: 0.51 MV Pk A: 0.83 E/A: 0.60 E'Medial: 6.96 E/E' Med: 7.40 E' Laterial: 9.57 E/E' Lat: 5.40 Right Ventricle TAPSE (mm): 23.80 TVS' Rojelio: 15.10 Tricuspid Valve TR Pk Rojelio: 2.67 TR Pk Grad: 29.00 RA Press: 3.00 RVSP: 32.00 Great Vessels Aorta Sinus of Valsalva: 3.05 2.0-3.[address] Ridge: 2.52 1.7-3.4 cm Ao Asc: 2.80 2.1-3.4 cm Ao Arch: 2.60 Updated in Other Vendor System with Status of Final Bryant Vick MD electronically signed on 11/23/2024 2:51:04 PM with status of Final
== END ==
LOC: HO.CARD 12:16
DX: R07.9 Chest pain, unspecified (principal); R00.2 Palpitations
CPT/HCPCS: 93242; 93306

== ENCOUNTER → 2024-11-23 12:20 | Outpatient (BNV) | payer MEDICARE, SELFPAY | PROVIDERS: Visit Provider Internal Medicine | DX: R00.0 Tachycardia, unspecified (principal) | CPT/HCPCS: 93244; 93306 ==

== ENCOUNTER → 2024-12-03 07:55 | Outpatient (BNVA) | payer MEDICARE, SELFPAY | PROVIDERS: PCP Internal Medicine; Visit Provider Nurse Practitioner Family | DX: G43.109 Migraine with aura, not intractable, without status migrainosus (principal); R21 Rash and other nonspecific skin eruption; M17.0 Bilateral primary osteoarthritis of knee | CPT/HCPCS: 99212 ==

== ENCOUNTER 2024-12-10 10:00 | Outpatient (REF) | payer MEDICARE, SELFPAY ==
[2024-12-10 10:23] LABS: MANUAL DIFF FLAG NO
[2024-12-10 10:45] LABS: Basophils Percent Auto 0.5 % (0-2); Eosinophils Percent Auto 0.5 % (0-4); Hemoglobin 14.3 g/dl (12.0-16.0); Imm Gran Abs Auto 0.02 X10*3/uL (0.00-0.03); Imm Gran Pct Auto 0.3 % (0.0-0.4); Lymphocytes Absolute Auto 2.5 X10*3/uL (1.2-4.9); Lymphocytes Percent Auto 41.1 % (20-40); Mean Corpuscular HGB Conc 33.3 g/dl (31.0-35.0); Mean Corpuscular Hemoglobin 29.6 pg (27.0-33.0); Mean Platelet Volume 11.2 fL (9.4-12.3); Monocytes Absolute Auto 0.5 X10*3/uL (0.1-1.2); Monocytes Percent Auto 7.8 % (2-11); Neutrophils Percent Auto 49.8 % (45-73); Platelet Count 226 X10*3/uL (160-400); Red Blood Count 4.83 X10*6/uL (4.20-5.50); Red Cell Distribution Width 12.6 % (11.0-16.0)
[2024-12-10 11:17] LABS: Rheumatoid Factor < 13.0 IU/mL (<15.0)
[2024-12-10 11:20] LABS: Erythrocyte Sedimentation Rate 17 MM/HR (0-20)
[2024-12-10 11:24] LABS: Alanine Aminotransferase 11 U/L (0-31); Albumin Level 4.4 g/dL (3.5-5.0); Alkaline Phosphatase 156 U/L (39-117); Anion Gap 12 (12-20); Aspartate Amino Transferase 18 U/L (5-31); Bilirubin Total 0.5 mg/dL (0.0-1.0); Blood Urea Nitrogen 13 mg/dL (9-16); C Reactive Protein 0.54 mg/dL (< or = 0.50); Calcium 9.4 mg/dL (8.4-10.2); Carbon Dioxide 27 mmol/L (22-29); Chloride 105 mmol/L (96-108); Estimated Glomerular Filt Rate > 60; Glucose Random 144 mg/dL (60-115); Potassium 3.6 mmol/L (3.3-5.1); Sodium 140 mmol/L (135-145); Total Protein 8.5 g/dL (6.5-8.0)
--- OUTSIDE RECORDS SUMMARY | 2024-12-10 13:11 | XMS_ITS | Clinical Summary ---
Author Organization [facility] Address [address] [place] [address] Phone Care Team Providers Care Wire Coiner Name Role Phone NicolAlexy padilla Primary Care Provider [phone] Allergies Active Allergy Reactions Criticality Noted Date Comments Aspirin 05/22/2021 Bee Venom 05/22/2021 Chlorhexidine Other (see comments) 05/22/2021 Nutritional Supplements 05/22/2021 Hydrochlorothiazide Other (see comments) 2020 Iodinated Contrast Media Other (see comments) 0 05/22/2021 Onion 05/22/2021 Promethazine 05/22/2021 Medications acetaminophen (TYLENOL) 500 MG tablet Take 1 tablet by mouth 1 (one) time each day Active ProAir HFA 108 (90 Base) MCG/ACT inhaler INHALE 1 TO 2 PUFFS BY MOUTH EVERY 4 TO 6 HOURS NEEDED 1 Active albuterol (5 MG/ML) 0.5% nebulizer solution 1 vial by Other route every 4 (four) hours Active benzonatate (TESSALON) 200 MG capsule TAKE 1 CAPSULE BY MOUTH THREE TIMES A DAY NEEDED FOR COUGH 1 Active Cholecalciferol 50 MCG (1999 UT) capsule Take 1 capsule by mouth 3 times a day Active desloratadine (CLARINEX) 5 MG tablet Take 1 tablet by mouth 1 (one) time each day Active Diclofenac Sodium 1 % gel APPLY 2G TO AFFECTED AREA EVERY 4 6 HOURS NEEDED 1 Active EPINEPHrine (EPIPEN) 0.3 MG/0.3ML injection syringe USE DIRECTED FOR ANAPHYLAXIS AND CALL 911 1 Active loratadine (CLARITIN) 10 MG tablet Take 10 mg by mouth 1 (one) time each day 1 Active Melatonin ER 1 MG tablet controlled-rele ase Take 1 tablet by mouth at bed time Active methylPREDNISol one (MEDROL DOSPAK) 4 MG tablet TAKE 6 TABLETS ON DAY 1 DIRECTED ON PACKAGE AND DECREASE BY 1 TAB EACH DAY FOR A TOTAL OF 6 DAYS 1 Active montelukast (SINGULAIR) 10 MG tablet Take 10 mg by mouth 1 (one) time each day 1 Active omeprazole (PriLOSEC) [address] capsule Take 20 mg by mouth 1 (one) time each day 1 Active SUMAtriptan (IMITREX) 50 MG tablet Take 1 tablet by mouth 1 (one) time each day Active tamoxifen (NOLVADEX) 10 MG chemo tablet Take 10 mg by mouth 1 (one) time each day 1 Active rosuvastatin (CRESTOR) 5 MG tablet TAKE 1 TABLET ORALLY EVERY SATURDAY, SATURDAY, AND Saturday 4 Active zolpidem (AMBIEN) 5 MG tablet Take 5 mg by mouth at night if needed for sleep 4 Active Semaglutide, 1 MG/DOSE, (Ozempic, 1 MG/DOSE,) 4 MG/3ML solution pen-injector Inject under the skin per week Active Benralizumab (Fasenra Pen) 30 MG/ML solution auto-injector Inject under the skin Active potassium citrate 10 MEQ (1080 MG) CR tablet TAKE 1 TABLET BY MOUTH TWICE DAILY 60 tablet 10 4 Active hydroCHLOROthia zide (MICROZIDE) 12.5 MG capsule Take 1 capsule (12.5 mg total) by mouth 1 (one) time each day 90 capsule 3 4 Active zonisamide (ZONEGRAN) 25 MG capsule Take 2 capsules (50 mg total) by mouth at night if needed 4 Active Active Problems Problem Noted Date Diagnosed Date Nephrolithiasis 12/31/2023 Thrush 12/31/2023 Abnormal radiologic density 12/31/2023 Chest pain 12/31/2023 Obese class I 12/31/2023 Asthma 07/30/2022 Bilateral oophorectomy 07/30/2022 Female stress incontinence 07/30/2022 Seizure 07/30/2022 Abdominal pain 05/22/2021 Blood in urine 05/22/2021 Disorder of calcium metabolism 05/22/2021 History of calculus of kidney 05/22/2021 Renal stone 05/22/2021 Systemic lupus erythematosus 05/22/2021 Tinea pedis 01/03/2021 Resolved Problems Problem Noted Date Diagnosed Date Resolved Date Abnormal radiologic density 07/30/2022 07/30/2022 Candidiasis 07/30/2022 07/30/2022 Family History Medical History Relation Comments Kidney disease Father Diabetes Mother Hypertension Mother Cancer Sibling Relation Status Comments Father Mother Alive Sibling Social History Tobacco Use Types Packs/Day Years Used Date Smoking Tobacco: Never Alcohol Use Standard Drinks/Week Comments No 0 (1 standard drink = 0.6 oz pur e alcohol) Comments Unknown Sex and Gender Information Value Date Recorded Sex Assigned at Not on file Legal Sex Female 5:10 PM EST Gender Identity Not on file Sexual Orientation Not on file Last Filed Vital Signs Vital Sign Reading Time Taken Comments Blood Pressure 114/70 09/01/2024 3:25 PM EDT Pulse 90 09/01/2024 3:25 PM EDT Temperature - - Respiratory Rate - - Oxygen Saturation 98% 09/01/2024 3:25 PM EDT Inhaled Oxygen Concentration - - Weight 79.8 kg (176 lb) 01/06/2024 10:35 AM EST Height 160 cm (5' 3 ) 07/30/2023 4:05 PM EDT Body Mass Index 31.18 07/30/2023 4:05 PM EDT Plan of Treatment Upcoming Encounters Date Type Department Care Team (Late st Contact Info) Description 02/26/2025 9:00 AM EDT Office Visit [facility] [address] [phone] Lior Cabrera MD [address] [phone] Health Maintenance Due Date Last Done Comments Breast Cancer Screening 1955 Pneumococcal Vaccine: 65+ Ye ars (1 of 2 - PCV) 1961 Colorectal Cancer Screening: Annual FOBT 2006 Colorectal Cancer Screening: Colonoscopy 2006 Colorectal Cancer Screening: Sigmoidoscopy 2006 Influenza Vaccine (#1) 2024 Hepatitis B Vaccine Aged Out No longe r eligible based on patient's age to complete this topic Insurance Care Teams Wire Coiner Relationship Specialty Start Date End Date Alexy Camarena DO [address] [place] [address] PCP - General Internal Medicine 08/01/22
--- OUTSIDE RECORDS SUMMARY | 2024-12-10 13:11 | XMS_ITS | Clinical Summary ---
Author Organization [facility] Address [address] [place] [address] Care Team Providers Care Sales Clerk Supervisor Name Role Phone Matty Jimenez MD Primary Care Provider [phone] Encounters Date Type Department Care Team Description 11/10/2024 Telephone Gastroenterology - [address] [place] [address] Austin Alas MD from Last 3 Months Surgical History Surgery Date Site/Laterality Comments TUBAL LIGATION PROCEDURE: HISTORICAL TUBAL LIGATION HYSTERECTOMY 05/04/2009 PROCEDURE: HISTORICAL TOTAL HYSTERECTOMY WITH BSO; COMMENT: bleeding issues OTHER SURGICAL HISTORY PROCEDURE: ---- OTHER ----; COMMENT: left forearm lyphoma BREAST LUMPECTOMY 1998, 2002 Right PROCEDURE: HISTORICAL BREAST LUMPECTOMY; COMMENT: right BREAST BIOPSY 1998, 2002 Right PROCEDURE: BX BREAST; PERC NEEDLE CORE W/IMAG GUID Medical History Medical History Date Comments Lupus (systemic lupus erythe matosus) ([facility]) DX:Lupus (systemic lupus erythematosus) ([facility]); COMMENT: right lung crystalized Herniated disc DX:Herniated dis c H/O colonoscopy 2013 DX:H/O colonosco py Colon polyps DX:Colon polyps Other specified personal his tory presenting hazards to health(V15.89) 2006 DX:Other specifie d personal history presenting hazards to health(V15.89); COMMENT: uterine Renal calculi 01/2016 DX:Renal calculi ; COMMENT: [facility], Dr. Ford Breast cancer ([facility]) 2002 DX:Breas t cancer ([facility]); COMMENT: rt Dr. Eliza Quiroz Multiple lipomas DX:Multiple lip omas History of uterine cancer DX:His tory of uterine cancer Fibromyalgia DX:Fibromyalgia Asthma DX:Asthma Seizure disorder (CMS/HCC) DX:Se izure disorder (HCC) Family History Medical History Relation Name Comments Breast cancer Aunt 1 2 p 60s 57 Breast cancer Aunt 2 p 90 Other: kidney disease Father Breast cancer Father's side 3 aunts Diabetes Mother Breast cancer Mother's side 2 aunts and o ne cousin Breast cancer Other m cousin 45 Other: hyperthyroid disorder Sister Relation Name Status Comments Aunt 1 2 p 60s 57 Aunt 2 p 90 Alive Father Father's side Mother Alive Mother's side Other m cousin 45 Alive Sister Social History Tobacco Use Types Packs/Day Years Used Date Smoking Tobacco: Never Smokeless Tobacco: Never Alcohol Use Standard Drinks/Week Comments No 0 (1 standard drink = 0.6 oz pur e alcohol) Sex and Gender Information Value Date Recorded Sex Assigned at Not on file Gender Identity Not on file Sexual Orientation Not on file Obstetrics History Plan of Treatment Health Maintenance Due Date Last Done Comments COVID-19 Vaccine (#1) 1962 Pneumococcal Vaccine: 65+ Years (1 of 2 - PCV) 1963 DTaP,Tdap,and Td Vaccines (1 - Tdap) 1976 Zoster Vaccines (1 of 2) 1976 RSV Immunization Patients 60 + Years Old (1 - Risk 60-74 years 1-dose series) 2017 Breast Cancer Screening 01/30/2021 01/31/20 19, 01/25/2018, 01/12/2017 Cholesterol Screening (Lipid Panel) 10/14/2022 Colorectal Cancer Screening: Colonoscopy 10/14/2022 Depression Screening 10/14/2022 Hepatitis C Screening 10/14/2022 Osteoporosis Screening (Bone Density Screening) 10/14/2022 Social Influencers of Health Screening 10/14/2022 Falls Risk Assessment 2022 Influenza Vaccine (#1) 2024 HIB Vaccines Aged Out No longer eligi ble based on patient's age to complete this topic HPV Vaccines Aged Out No longer eligi ble based on patient's age to complete this topic Hepatitis A Vaccines Aged Out No long er eligible based on patient's age to complete this topic Hepatitis B Vaccines Aged Out No long er eligible based on patient's age to complete this topic IPV Vaccines Aged Out No longer eligi ble based on patient's age to complete this topic MMR Vaccines Aged Out No longer eligi ble based on patient's age to complete this topic Meningococcal ACWY Vaccine Aged Out N o longer eligible based on patient's age to complete this topic RSV Immunization Patients Under 20 months Aged Out No longer eligible b ased on patient's age to complete this topic Varicella Vaccines Aged Out No longer eligible based on patient's age to complete this topic Procedures Procedure Name Priority Date/Time Associated Diagnosis Comments EXTERNAL CLINICAL LAB 10/30/2024 SCR MAMMO BI INCL CAD Routine 01/30/2019 2:19 PM EDT Encounter for screening mammogram for malignant neoplasm of breast from Last 3 Months or Most Recently Relevant to Health Maintenance Results * External clinical lab (10/30/2024) Provider [facility] BLOOD ORDERA BLES * SCR MAMMO BI INCL CAD (01/30/2019 2:19 PM EDT) Anatomical Region Laterality Modality Radiographic Daly ging 01/25/2018 9:02 AM EDT Narrative 01/31/2019 2:37 PM EDT This is a summary report. The complete report is available in the patient's medical record. If you cannot access the medical record, please contact the sending organization for a detailed fax or copy. Full field digital screening mammography, reviewed with CAD and compared to previous. ??The breasts are composed of fatty and fibroglandular tissue. ??No suspicious mass, architectural distortion or suspicious calcifications are identified. IMPRESSION: : No mammographic evidence of malignancy. BIRADS 1-Negative; N. 5 year breast cancer risk assessment N/A Lifetime breast cancer risk assessment N/A Breast cancer risk category Breast cancer risk not assessed Procedure Note Daryl Elmore MD - 10/30/2022 This is a summary report. The complete report is available in thepatient's medical record. If you cannot access the medical record, pleasecontact the sending organization for a detailed fax or copy. Full field digital screening mammography, reviewed with CAD and comparedto previous. The breasts are composed of fatty and fibroglandular tissue.No suspicious mass, architectural distortion or suspicious calcificationsare identified. IMPRESSION: : No mammographic evidence of malignancy. BIRADS 1-Negative; N. 5 year breast cancer risk assessment N/A Lifetime breast cancer risk assessment N/A Breast cancer risk category Breast cancer risk not assessed Matty Jimenez MD IMG XR PROCEDURES from Last 3 Months or Most Recently Relevant to Health Maintenance Care Teams Sales Clerk Supervisor Relationship Specialty Start Date [place] [address] PCP - General Internal Medicine 11/30/14
--- OUTSIDE RECORDS SUMMARY | 2024-12-10 13:12 | XMS_ITS | Encounter Summary ---
Author Organization [facility] Address [address] [place] [address] Care Team Providers Care Warehouse Trainer Name Role Phone Matty Jimenez MD Primary Care Provider [phone] Encounter Details Date Type Department Care Team (Late st Contact Info) Description 11/10/2024 Telephone Gastroenterology - [address] [place] [phone] Austin Alas MD [address] [place] [address] Social History Tobacco Use Types Packs/Day Years Used Date Smoking Tobacco: Never Smokeless Tobacco: Never Alcohol Use Standard Drinks/Week Comments No 0 (1 standard drink = 0.6 oz pur e alcohol) Sex and Gender Information Value Date Recorded Sex Assigned at Not on file Gender Identity Not on file Sexual Orientation Not on file documented as of this encounter Progress Notes * Sania Quinn - 11/10/2024 12:45 PM EST EST PT, H&P IN MEDIA. LAST COLON 2018 10 YEAR RECALL, PT DUE 2028. documented in this encounter Plan of Treatment Not on file documented as of this encounter Visit Diagnoses Not on filedocumented in this encounter Care Teams Warehouse Trainer Relationship Specialty Start Date End Date Matty Jimenez MD [address] [address] PCP - General Internal Medicine 11/30/14 documented as of this encounter
[2024-12-11 12:33] LABS: Complement C3 175 mg/dL (83-193)
[2024-12-11 16:29] LABS: Anti DNA DS Antibody <1 IU/mL
[2024-12-16 16:18] LABS: Anti Nuclear Antibody Screen POSITIVE (NEGATIVE)
== END 2024-12-10 10:01 | disposition home or self-care (01) ==
LOC: HO.LAB 10:00
PROVIDERS: Absent Provider Nurse Practitioner Family; PCP Internal Medicine
DX: R00.2 Palpitations (principal); R06.09 Other forms of dyspnea; M32.9 Systemic lupus erythematosus, unspecified
CPT/HCPCS: 36415; 80053; 85025; 85652; 86038; 86039; 86140; 86160; 86225; 86431

== ENCOUNTER 2025-01-01 10:36 | Outpatient (REF) | payer MEDICARE, SELFPAY ==
[2025-01-01 12:08] LABS: Anion Gap 11 (12-20); Blood Urea Nitrogen 22 mg/dL (9-16); Calcium 9.9 mg/dL (8.4-10.2); Carbon Dioxide 23 mmol/L (22-29); Chloride 111 mmol/L (96-108); Estimated Glomerular Filt Rate > 60; Glucose Random 103 mg/dL (60-115); Potassium 3.8 mmol/L (3.3-5.1); Sodium 141 mmol/L (135-145)
--- OUTSIDE RECORDS SUMMARY | 2025-01-01 12:22 | XMS_ITS | Clinical Summary ---
Author Organization [facility] it Address [address] [place] [address] Care Team Providers Care Salon Customer Experience Specialist Name Role Phone Matty Jimenez MD Primary Care Provider Unavailab le Encounters Date Type Department Care Team Description 11/10/2024 Telephone Gastroenterology - [address] [place] [phone] Austin Alas MD from Last 3 Months [...] Date Comments Lupus (systemic lupus erythe matosus) ([facility]) DX:Lupus (systemic lupus erythematosus) ([facility]); COMMENT: right lung crystalized Herniated disc DX:Herniated dis c H/O colonoscopy 2013 DX:H/O colonosco py Colon polyps DX:Colon polyps Other specified personal his tory presenting hazards to health(V15.89) 2006 DX:Other specifie d personal history presenting hazards to health(V15.89); COMMENT: uterine Renal calculi 01/2016 DX:Renal calculi ; COMMENT: [facility], Dr. Ford Breast cancer ([facility]) 2002 DX:Breas t cancer ([facility]); COMMENT: rt Dr. Eliza Quiroz Multiple lipomas [...] Recently Relevant to Health Maintenance Care Teams Salon Customer Experience Specialist Relationship Specialty Start Date End Date Matty Jimenez MD PCP - General Internal Medicine 11/30/14
--- OUTSIDE RECORDS SUMMARY | 2025-01-01 12:22 | XMS_ITS | Clinical Summary ---
Author Organization [facility] Address [address] [place] [address] Phone Care Team Providers Care Kier Hand Name Role Phone NicolAlexy padilla Primary Care Provider [phone] Allergies Active Allergy Reactions Criticality Noted Date [...] Visit [facility] [address] [phone] Lior Cabrera MD [address] [phone] Health Maintenance Due Date Last Done Comments Breast Cancer Screening 1955 Pneumococcal Vaccine: 65+ Ye ars (1 of 2 - PCV) 1963 Colorectal Cancer Screening: Annual FOBT 2006 Colorectal Cancer Screening: Colonoscopy 2006 Colorectal Cancer Screening: Sigmoidoscopy 2006 Influenza Vaccine (#1) 2024 Hepatitis B Vaccine Aged Out No longe r eligible based on patient's age to complete this topic Insurance Care Teams Kier Hand Relationship Specialty Start Date End Date Alexy Camarena DO [address] [place] [address] PCP - General Internal Medicine 08/01/22
[2025-01-03 05:33] LABS: IgA 673 mg/dL (70-320); IgG 1408 mg/dL (600-1540); IgM 51 mg/dL (50-300)
[2025-01-05 16:59] LABS: Antibody to SS-A Antigen <1.0 NEG AI (<1.0 NEG); Antibody to SS-B Antigen <1.0 NEG AI (<1.0 NEG)
[2025-01-06 20:28] LABS: Immunoglobulin E 254 kU/L (<OR=114)
== END 2025-01-01 10:37 | disposition home or self-care (01) ==
LOC: HO.LAB 10:36
PROVIDERS: PCP Internal Medicine; Visit Provider Hospitalist
DX: J45.50 Severe persistent asthma, uncomplicated (principal); J98.4 Other disorders of lung; G47.33 Obstructive sleep apnea (adult) (pediatric); J45.40 Moderate persistent asthma, uncomplicated; J44.89 Other specified chronic obstructive pulmonary disease; R06.00 Dyspnea, unspecified; R00.0 Tachycardia, unspecified; R07.9 Chest pain, unspecified
CPT/HCPCS: 36415; 80048; 82784; 82785; 86235; 99212

== ENCOUNTER 2025-01-01 10:36 | Outpatient (AMB) | payer MEDICARE, SELFPAY ==
[2025-01-01 10:40] VITALS: BP 120/68; PULSE 76; O2SAT 99; BMI 31.2
--- NOTE | 2025-01-01 10:40 | MHC.OFFVIS ---
Vital Signs 01/01/25 10:40 Height 5 ft 3 in Weight 176 lb 5.917 oz BMI 31.2 BP 120/68 Blood Pressure Location Rt brachial Position Sitting Pulse 76 Pulse Source Pulse Oximeter Pulse Oximetry (%) 99 Oxygen Delivery Method Room Air Intake Visit Reasons: asthma Allergies aspirin Allergy (Intermediate, Verified 01/01/25 10:44) Rash and Hives omalizumab [From Xolair] Allergy (Intermediate, Verified 01/01/25 10:44) Angioedema Almonds,hazenuts,fresh fruits, Allergy (Severe, Uncoded 01/01/25 10:44) Hives/Rash Chlorhexidine Allergy (Severe, Uncoded 01/01/25 10:44) Rash and Hives Dye [facility] Blue 1 Allergy (Severe, Uncoded 01/01/25 10:44) Rash and Hives fresh fruits Allergy (Severe, Uncoded 01/01/25 10:44) Rash and Hives onions Allergy (Severe, Uncoded 01/01/25 10:44) Rash and Hives Chlora Prep Allergy (Intermediate, Uncoded 01/01/25 10:44) rash peanuts Allergy (Intermediate, Uncoded 01/01/25 10:44) Rash HPI Comments Details: The patient is a 69-year-old woman with a known history of asthma in addition to systemic lupus erythematous. Will or she continues to use her respiratory therapy regularly. Has not had any recent flares or need for prednisone. Seems like it lupus is under control. However, the patient is presenting now with left-sided pleuritic discomfort mainly in the upper part of her left lung. This started happening for the last day or 2. It seems to be getting worse. Moderate in severity. Not associated with any fevers or chills. She has noticed increased rash sometimes getting blotches of January under scan that are tender. 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 The last kidney function was normal. The patient has not had any recent x-rays or blood work. We did do a blood work evaluation to see if she has any active lupus and we didn't see any significance. We talked about Plaquenil also potential therapy however. In the meantime the patient continues having this discomfort. Her x-ray appear to be relatively clear was not helpful trying to explain the right-sided pleuritic discomfort. She may have a neuromuscular component. But at this time with history lupus we have to make sure she the doesn't have any evidence of any pneumonitis or pleuritis. She does have an allergic reaction to dye as we cannot use that at this time. Will requested non contrast CT scan of the chest. In the meantime will try Plaquenil and consider he given some prednisone. We did do the blood work to assess lupus activity and her complement levels were within normal and her double strand DNA was also undetectable. Therefore, does not appear to have any lupus activity. Her CT scan of the chest is also reassuring. She has areas of atelectasis but no other findings to suggest active connective tissue disease at this time. Her pleural lining appears to be well visualized without any significant thickening or inflammation or effusions. 09/26/2020 the patient has a pulmonary follow-up visit. Overall she is feeling better now. Last month she did have increasing asthma symptoms and did have GI symptoms as well as fatigue. She did lose about 12 lb. Her respiratory status is better. She denied any fevers and denies any exposure to anyone with COVID-19 infection of the time. At this point based on her symptoms it is reasonable to check her for potential COVID-19 exposure with her antibodies. Again we did review her CT scan of the chest demonstrating some atelectasis and some scarring but otherwise no evidence of any interstitial lung disease to be concerned about. No need to follow this at this time. We talked about her respiratory medications. The patient has been on the Trelegy which appears to be effective but sometimes she feels like is not strong enough. At this point is reasonable to increase the dose to the higher dose which is a 200 mcg. In the meantime she does have significant allergies and therefore will check her allergy levels to see if she has a candidate for any allergy therapies or biologic therapy at this time. 07/05/2023 the patient is here for a pulmonary follow-up visit. Her respiratory status seems to be doing better on the Trelegy inhaler and also on the Fasenra injections. She has been having some chest discomfort her. Pleuritic in nature. She had been on Plaquenil before and did help her with her symptoms. Explained to her that this is not a medication that she can take regularly. I will prescribe for 1 month and afterwards if she needs additional or she feels that she wants to continue it she needs to talk to primary care or Rheumatology. The patient is also having some difficulty sleeping. She is using the melatonin. She is not using the trazodone. When she does sleep she does wake up tired. Her Junction score is elevated 10/24. She does have intermittent headaches. She does have snoring. Will request a sleep study at this time. 01/03/2024 the patient is here for pulmonary follow-up visit. Overall the patient has been doing well on the current respiratory regimen. She is responded well to the Trelegy inhaler and also the Fasenra injections. He has been getting the every 8 weeks. Denies any adverse effects from the medications. Her asthma has been significantly improved. Has not required any prednisone which is reassuring. In the meantime she has been struggling with her sleep. She is tried multiple medication including trazodone in the past without any significant improvement. She continues to have significant daytime drowsiness. The patient did undergo home sleep study which we personally viewed in the office. No evidence of any significant sleep apnea documented in the home sleep study. Will go ahead and try her on a small dose of zolpidem the hopes that she gets enough sleep. She knows to take the medication right at sleep time and not to plan any activities after taking the medication. The patient will monitor closely symptoms and hopefully she has improvement with smaller dose of the zolpidem. Otherwise patient is doing well. Will plan to follow-up in 4-6 months. 07/01/2024 the patient is here for a pulmonary follow-up visit. Overall the patient has been doing okay. She has been complaining of worsening dyspnea on exertion her. Etic-lt-jeyulbri severity. Specially when she goes up a flight of stairs. She does use a cane. She does have back issues. From an asthma standpoint the patient is doing very good on the biologic therapy, Fasenra. She also continues on Trelegy. She has not required any prednisone nor her rescue inhaler. And her respiratory exam is reassuring. She did have a chest x-ray which I reviewed demonstrating no acute disease. In addition to that she did have blood work back in December demonstrating no evidence of any anemia or anything else that can explain shortness of breath. On further questioning she does state having some chest pressure and pain at times. Although is transient. She does not have any chest discomfort at this time. Sometimes she does feel palpitations and increased heart rate. We did go for brief walking oximetry in the office in heart rate did increase to about 112 beats per minute with minimal activity. Oxygen was normal. Based on her ongoing symptoms will go ahead and refer her to Cardiology. To further address her symptoms and likely will need a stress test. She will not be able to do a treadmill since she does have a cane. From an allergy standpoint the patient is doing well on the current therapy will continue it at this time. From vaccine standpoint she is does not use any vaccines will hold off on those as well. Will follow-up in 6 months or sooner if she develops any worsening issues. 01/01/2025 the patient is here for a pulmonary follow-up visit. Overall she is doing well from a respiratory status. She has been having issues with rash. She has been noticing some hives throughout her body pleuritic in nature. She did follow-up with her cross tie cutter. She continues on the Fasenra although the Fasenra has been very expensive for her and she is not sure she is going to be able to afford it. She is looking to changing her insurance or prescription programs. In the meantime with the hives will go ahead and recheck her IgE levels to see what her need for biologic is at this time. If her IgE levels elevated than may be a different type of biologic regimen will be more warranted for her. For now she will continue with the current respiratory therapy. She is also going to follow-up with her primary care doctor regarding the rash the rash seems to be better. One thing about the rash was that her asthma was more active when he was noticeable I do believe that this is more related to an allergic reaction then related to any connective tissue disease. She did have an elevated DALI for her demonstrating DNA is negative. Apparently she had been on Plaquenil in the past. 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 [facility] Medical History Chest pain Tachycardia Type 2 diabetes mellitus Varicose veins of bilateral lower extremities with pain GERD (gastroesophageal reflux disease) HLD (hyperlipidemia) History of renal calculi Hepatic steatosis History of breast cancer Chronic restrictive lung disease Insomnia Back pain Moderate persistent asthma Post herpetic neuralgia Kidney stones Chronic allergic rhinitis Atelectasis Asthma Surgical History History of colonoscopy (08/30/19) History of excision of mass (08/27/19) History of cholecystectomy (07/21/19) History of cystoscopy (2010) History of arthroplasty of knee (1993) History of hemorrhoidectomy (1983) History of 2 sections History of tonsillectomy and adenoidectomy (1965) History of hysterectomy for cancer Family History Father No problems noted. Mother Chest pain Sister History of ovarian cancer, Onset Age: 49 Afib Maternal Aunt History of breast cancer Maternal Aunt History of breast cancer Maternal Aunt History of breast cancer Maternal Aunt History of breast cancer Social History Alcohol intake: never Patient Tobacco Use Status: Never used Tobacco Review of Systems Const Denies anorexia, Denies chills, Reports daytime sleepiness and Reports difficulty sleeping Card Reports chest pain and Reports dyspnea on exertion Resp Reports cough, Reports dyspnea on exertion and Denies wheezing GI Denies abdominal pain Denies nipple discharge Musc Reports abnormal gait, Reports myalgias, Reports arthralgias and Reports muscle weakness Skin/Breast Denies breast swelling, Reports breast pain, Denies breast mass and Denies nipple discharge Neuro Reports abnormal gait Psych Denies no additional complaints Niranjan/Lymph Denies easy bleeding and Denies lymphadenopathy Aller/Immun Denies wheezing Physical Exam Vital Signs: Last Vital Signs Pulse 76 01/01/25 10:40 BP 120/68 01/01/25 10:40 Pulse Ox 99 01/01/25 10:40 Oxygen Delivery Method Room Air 01/01/25 10:40 BMI result Body Mass Index 31.2 Const General: alert Neck Neck: Yes normal visual inspection, Yes full ROM and Yes no lymphadenopathy Chest Chest palpation & inspection: normal inspection of the chest Resp Effort & Inspection: normal respiratory effort Auscultation: clear to auscultation bilaterally Cardio Rate: regular rate Rhythm: regular rhythm Heart sounds: S1 normal heart sound present and S2 normal heart sound present GI Palpation (GI): Soft to palpation and nontender Auscultation: normal bowel sounds Skin General skin exam: rashes and/or lesions noted Assessment & Plan Assessment & Plan (1) Asthma: Code(s): J45.909 - Unspecified asthma, uncomplicated Category: Medical Qualifiers: Asthma complication type: uncomplicated Asthma persistence: persistent Asthma severity: severe Qualified Code(s): J45.50 - Severe persistent asthma, uncomplicated (2) Chronic allergic rhinitis: Code(s): J30.9 - Allergic rhinitis, unspecified Category: Medical (3) Atelectasis: Code(s): J98.11 - Atelectasis Category: Medical (4) Insomnia: Code(s): G47.00 - Insomnia, unspecified Category: Medical Qualifiers: Insomnia type: primary Qualified Code(s): F51.01 - Primary insomnia (5) Tachycardia: Code(s): R00.0 - Tachycardia, unspecified Category: Medical (6) Dyspnea: Code(s): R06.00 - Dyspnea, unspecified Category: Medical Qualifiers: Dyspnea type: dyspnea on exertion Qualified Code(s): R06.09 - Other forms of dyspnea (7) SLE (systemic lupus erythematosus): Code(s): M32.9 - Systemic lupus erythematosus, unspecified Category: Medical (8) Rash: Code(s): R21 - Rash and other nonspecific skin eruption Category: Medical Plan continue Trelegy continue Melatonin ZOË as needed continue singular continue Claritin continue Fasenra Q8 weeks cardiology evaluation pending bloodwork F/U 6 months Orders: Orders Sjogren's Antibodies 01/01/25 M32.9 - Systemic lupus erythematosus, unspecified, R21 - Rash and other nonspecific skin eruption Immunoglobulin E 01/01/25 M32.9 - Systemic lupus erythematosus, unspecified, R21 - Rash and other nonspecific skin eruption Immunoglobulins,IgG IgA IgM 01/01/25 M32.9 - Systemic lupus erythematosus, unspecified, R21 - Rash and other nonspecific skin eruption Coding Level of Care Code Est Pt Level 4 (40300) Complex EM visit Add On G2211 Diagnoses Severe persistent asthma without complication J45.50 Asthma complication type: uncomplicated Asthma persistence: persistent Asthma severity: severe Chronic allergic rhinitis J30.9 Atelectasis J98.11 Primary insomnia F51.01 Insomnia type: primary Tachycardia R00.0 Dyspnea on exertion R06.09 Dyspnea type: dyspnea on exertion SLE (systemic lupus erythematosus) M32.9 Rash R21 Time Spent (min) 17
--- OUTSIDE RECORDS SUMMARY | 2025-01-01 11:33 | XMS_ITS | Clinical Summary ---
Author Organization [facility] it Address [address] [place] [address] Care Team Providers Care Security Sales Manager Name Role Phone Matty Jimenez MD Primary Care Provider Unavailab le Encounters Date Type Department Care Team Description 11/10/2024 Telephone Gastroenterology - [address] [place] [phone] Austin Alas MD from Last 3 Months [...] Date Comments Lupus (systemic lupus erythe matosus) ([facility]) DX:Lupus (systemic lupus erythematosus) ([facility]); COMMENT: right lung crystalized Herniated disc DX:Herniated dis c H/O colonoscopy 2013 DX:H/O colonosco py Colon polyps DX:Colon polyps Other specified personal his tory presenting hazards to health(V15.89) 2006 DX:Other specifie d personal history presenting hazards to health(V15.89); COMMENT: uterine Renal calculi 01/2016 DX:Renal calculi ; COMMENT: [facility], Dr. Ford Breast cancer ([facility]) 2002 DX:Breas t cancer ([facility]); COMMENT: rt Dr. Eliza Quiroz Multiple lipomas [...] at Not on file Legal Sex Female 9:03 AM EST Gender Identity Not on file Sexual Orientation Not on file Obstetrics History Plan of Treatment Health Maintenance Due Date Last Done Comments COVID-19 Vaccine (#1) 1962 DTaP,Tdap,and Td Vaccines (1 - Tdap) 1976 Pneumococcal Vaccine: 50+ Years (1 of 2 - PCV) 1976 Zoster Vaccines (1 of 2) 1976 [...] patient's age to complete this topic Meningococcal B Vacine Aged Out No lo nger eligible based on patient's age to complete [...] lab (10/30/2024) Provider [facility] BLOOD ORDERABLES Fin al Result * SCR MAMMO BI INCL CAD (01/30/2019 [...] risk category Breast cancer risk not assessed us Matty Jimenez MD IMG XR PROCEDURES Final Result from Last 3 Months or Most Recently Relevant to Health Maintenance Care Teams Security Sales Manager Relationship Specialty Start Date End Date Matty Jimenez MD PCP - General Internal Medicine 11/30/14
--- OUTSIDE RECORDS SUMMARY | 2025-01-01 11:33 | XMS_ITS | Clinical Summary ---
Author Organization [facility] Address [address] [place] [address] Phone Care Team Providers Care Bridge Expert Name Role Phone NicolAlexy padilla Primary Care Provider [phone] Allergies Active Allergy Reactions Criticality Noted Date [...] Visit [facility] [address] [phone] Lior Cabrera MD [address] [phone] Health Maintenance Due Date Last Done Comments Breast Cancer Screening 1955 Pneumococcal Vaccine: 65+ Ye ars (1 of 2 - PCV) 1963 Colorectal Cancer Screening: Annual FOBT 2006 Colorectal Cancer Screening: Colonoscopy 2006 Colorectal Cancer Screening: Sigmoidoscopy 2006 Influenza Vaccine (#1) 2024 Hepatitis B Vaccine Aged Out No longe r eligible based on patient's age to complete this topic Insurance Care Teams Bridge Expert Relationship Specialty Start Date End Date Alexy Camarena DO [address] [place] [address] PCP - General Internal Medicine 08/01/22
== END 2025-01-01 11:10 | disposition home or self-care (01) ==
PROVIDERS: PCP Internal Medicine; Visit Provider Hospitalist
DX: J45.50 Severe persistent asthma, uncomplicated (principal); J30.9 Allergic rhinitis, unspecified; J98.11 Atelectasis; F51.01 Primary insomnia; R00.0 Tachycardia, unspecified; R06.09 Other forms of dyspnea; M32.9 Systemic lupus erythematosus, unspecified; R21 Rash and other nonspecific skin eruption
CPT/HCPCS: 99214; G2211

== ENCOUNTER 2025-01-29 08:37 | Outpatient (AMB) | payer MEDICARE, SELFPAY ==
--- NOTE | 2025-01-29 08:40 | MHC.OFFVIS ---
Vital Signs 01/29/25 08:43 Height 5 ft 3 in Weight 166 lb BMI 29.4 BP 119/65 Blood Pressure Location Lt brachial Position Sitting Pulse 92 Intake Visit Reasons: 6 mth breast exam Intake Note: Patient is seen in office for 6 month follow up visit, breast exam. Patient c/o: denies any concerns regarding the breast mm:06/11/24 Kitchen Porter Required: No Pharmacy Operations Coordinator: Pharmacy Operations Coordinator Present Accompanied by: Self / Same As Patient Allergies aspirin Allergy (Intermediate, Verified 01/29/25 08:44) Rash and Hives omalizumab [From Xolair] Allergy (Intermediate, Verified 01/29/25 08:44) Angioedema Almonds,hazenuts,fresh fruits, Allergy (Severe, Uncoded 01/29/25 08:44) Hives/Rash Chlorhexidine Allergy (Severe, Uncoded 01/29/25 08:44) Rash and Hives Dye HALFWAY Blue 1 Allergy (Severe, Uncoded 01/29/25 08:44) Rash and Hives fresh fruits Allergy (Severe, Uncoded 01/29/25 08:44) Rash and Hives onions Allergy (Severe, Uncoded 01/29/25 08:44) Rash and Hives Chlora Prep Allergy (Intermediate, Uncoded 01/29/25 08:44) rash peanuts Allergy (Intermediate, Uncoded 01/29/25 08:44) Rash Medication List - Last Reconciled 01/29/25 by Bacilio Syed MD acetaminophen (Tylenol Extra Strength) 500 mg PO Q6H PRN albuterol sulfate 90 mcg/actuation (ProAir HFA) 1 inh inhalation QID albuterol sulfate 90 mcg/actuation 2 puffs PO Q4H PRN 90 days albuterol sulfate 2.5 mg (3 mL) inhalation Q4-6H PRN benralizumab (Fasenra Pen) 30 mg subcut Q8W benzonatate 200 mg PO TID PRN budesonide-formoterol 160-4.5 mcg/actuation (Symbicort) 2 puffs inhalation BID 30 days desloratadine (Clarinex) 5 mg PO DAILY diclofenac sodium 1% 4 grams topical QID epinephrine (EpiPen 2-Teofilo) 0.3 mg (0.3 mL) IM Q10M PRN 90 days famotidine 20 mg PO BID lghwajsxezv-ejtaoxmzu-kxdmwvtx 200-62.5-25 mcg (Trelegy Ellipta) 1 inh inhalation DAILY 90 days galcanezumab-gnlm (Emgality Pen) 120 mg subcut ONCE 30 days hydrochlorothiazide 12.5 mg PO DAILY hydroxychloroquine 200 mg PO DAILY lidocaine 5% (Lidoderm) 1 patch topical DAILY 30 days loratadine 10 mg PO DAILY 90 days magnesium oxide 400 mg PO BID methenamine hippurate 1 g PO BID montelukast 10 mg PO DAILY 90 days nebulizers As directed nitrofurantoin monohyd/m-cryst 100 mg 1 cap PO Q12H nortriptyline 50 mg PO BEDTIME 90 days omeprazole 40 mg PO DAILY 30 days ondansetron 4 mg PO Q8H PRN potassium citrate ER (Urocit-K 10) 10 mEq PO TID prednisone 40 mg (2 x 20 mg) PO BID rosuvastatin 0 mg PO sumatriptan succinate 50 mg PO Q2-4H PRN 30 days tamoxifen 20 mg PO DAILY tamsulosin 0.4 mg PO BEDTIME ubrogepant (Ubrelvy) 50 - 100 mg (0.5 - 1 x 100 mg) PO ONCE PRN 30 days umeclidinium 62.5 mcg/actuation (Incruse Ellipta) 1 inh inhalation DAILY 30 days zolpidem (Ambien) 5 mg PO BEDTIME PRN 30 days HPI Comments Details: Evie Shahid is a 69-year-old former patient of Dr. Wells returning today for follow-up breast evaluation for breast pain.? She has a history of right-sided breast pain located mainly in the upper inner quadrant. She initially tried [place] oil without much success in later was started on tamoxifen by Dr. Wells.? Since starting the Low-dose tamoxifen she reported an improvement in her breast pain especially on the right side.? She denies any leg pain or leg swelling.? She denies any vaginal bleeding. She was previously on tamoxifen after developing right breast cancer which was treated at [facility] in 1998 (Dr. Eliza Quiroz).? She continues to feel improvement while taking the tamoxifen. The tamoxifen was stopped 6 months ago and she denies significant change. She continues to feel breast pain in the right breast at the lower inner quadrant. She denies any new breast mass or skin change. Her most recent mammogram performed on 06/11/2024 revealed no mammographic evidence of malignancy (BI-RADS 2). She was scheduled for an annual mammogram on 06/17/2025. [facility] Medical History Chest pain Tachycardia Type 2 diabetes mellitus Varicose veins of bilateral lower extremities with pain GERD (gastroesophageal reflux disease) HLD (hyperlipidemia) History of renal calculi Hepatic steatosis History of breast cancer Chronic restrictive lung disease Insomnia Back pain Moderate persistent asthma Post herpetic neuralgia Kidney stones Chronic allergic rhinitis Atelectasis Asthma Surgical History Hx of eye surgery History of colonoscopy (08/30/19) History of excision of mass (08/27/19) History of cholecystectomy (07/21/19) History of cystoscopy (2010) History of arthroplasty of knee (1993) History of hemorrhoidectomy (1983) History of 2 sections History of tonsillectomy and adenoidectomy (1965) History of hysterectomy for cancer Family History Father No problems noted. Mother Chest pain Sister History of ovarian cancer, Onset Age: 49 Afib Maternal Aunt History of breast cancer Maternal Aunt History of breast cancer Maternal Aunt History of breast cancer Maternal Aunt History of breast cancer Social History Alcohol intake: never Patient Tobacco Use Status: Never used Tobacco Review of Systems Const Denies anorexia and Denies chills Card Denies chest pain Resp Reports cough and Reports wheezing GI Denies abdominal pain Denies nipple discharge Musc Denies no additional complaints Skin/Breast Denies breast swelling, Reports breast pain, Denies breast mass and Denies nipple discharge Psych Denies no additional complaints Niranjan/Lymph Denies easy bleeding and Denies lymphadenopathy Aller/Immun Reports wheezing Physical Exam Vital Signs: Last Vital Signs Pulse 92 01/29/25 08:43 BP 119/65 01/29/25 08:43 BMI result Body Mass Index 29.4 Const General: cooperative, healthy appearing, comfortable and no acute distress Chest Other: Left breast: No skin change, no nipple retraction, no nipple discharge, no palpable mass, no enlarged lymph nodes, and no tenderness. Mild fibrocystic changes diffusely Right breast: No skin change, no nipple retraction, no nipple discharge, no palpable mass, no enlarged lymph nodes; diffuse mild tenderness in both the inner upper and lower quadrants with some mild fibrocystic change. No change from prior examinations. Resp Effort & Inspection: normal respiratory effort, no cough and no stridor GI Inspection: Yes normal to inspection Skin Other: Warm and dry, no rash General skin exam: no rashes or lesions noted Neuro Other: Alert and oriented x3, patient uses a cane for ambulation Extrem General: Yes no clubbing, cyanosis or edema Assessment & Plan Assessment & Plan (1) Breast pain: Code(s): N64.4 - Mastodynia Category: Medical Plan: Patient returns for follow-up breast examination for breast pain. She completed 5 years of low-dose tamoxifen for breast pain and since stopping the medication 6 months ago denies any significant increase in her breast pain. Her most recent mammogram of 06/11/2024 revealed no mammographic evidence of malignancy (BI-RADS 2). She was scheduled for her annual mammogram on 06/17/2025. Examination today revealed no new suspicious findings in either breast. There continues to be tenderness throughout the right breast with no significant palpable mass, skin change, nipple discharge or enlarged lymph nodes. I recommended follow-up examination in 6 months, sooner p.r.n.. Coding Level of Care Code Est Pt Level 3 (40607) Diagnoses Breast pain N64.4
[2025-01-29 08:43] VITALS: BP 119/65; PULSE 92; BMI 29.4
--- OUTSIDE RECORDS SUMMARY | 2025-01-29 08:52 | XMS_ITS | Clinical Summary ---
Author Organization [facility] Address [address] [place] [address] Phone Care Team Providers Care Associate Professor Of Anthropology Name Role Phone Nicol Alexy GARCIA Primary Care Provider [phone] Allergies Active Allergy Reactions Criticality Noted Date [...] FOR COUGH 1 Active Cholecalciferol 50 MCG (2000 UT) capsule Take 1 capsule by mouth [...] radiologic density 07/30/2022 07/30/2022 Candidiasis 07/30/2022 07/30/2022 Encounters Date Type Department Care Team Description 01/20/2025 Office Communication [facility] [address] [phone] Annabelle Valverde from Last 3 Months Family History Medical History Relation Comments Kidney [...] Office Visit [facility] [address] [phone] Lior Cabrera MD [address] [phone] Health Maintenance Due Date Last Done Comments Breast Cancer Screening 1955 Pneumococcal Vaccine: 65+ Ye ars (1 of 2 - PCV) 1963 Colorectal Cancer Screening: Annual FOBT 2006 Colorectal Cancer Screening: Colonoscopy 2006 Colorectal Cancer Screening: Sigmoidoscopy 2006 Influenza Vaccine (#1) 2024 Hepatitis B Vaccine Aged Out No longe r eligible based on patient's age to complete this topic Insurance [place]ICA[place] [facility] Care Teams Associate Professor Of Anthropology Relationship Specialty Start Date End Date Alexy Camarena DO [address] [place] [id number] PCP - General Internal Medicine 08/01/22
--- OUTSIDE RECORDS SUMMARY | 2025-01-29 08:52 | XMS_ITS | Encounter Summary ---
Author Organization [facility] Address [address] [phone] Phone Care Team Providers Care Drywall Hanger Helper Name Role Phone Alexy Camarena DO Primary Care Provider [phone] Encounter Details Date Type Department Care Team (Late st Contact Info) Description 01/20/2025 Office Communication [facility] [address] [phone] Annabelle Valverde [address] [place] [phone] Social History Tobacco Use Types Packs/Day Years [...] on file documented as of this encounter Miscellaneous Notes * Telephone Encounter - Lizeth Fraser - 01/20/2025 1:18 PM EDT sent * Telephone Encounter - Annabelle Valverde - 01/20/2025 11:48 AM EDT PT never rec'd her [employer]. Maybe because she had a PO Box on record? [facility] [id number] documented in this encounter Plan of Treatment Upcoming Encounters Date Type Department Care Team (Late st Contact Info) Description 02/26/2025 9:00 AM EDT Office Visit [facility] [address] [facility] [address] [place] [phone] Lior Cabrera MD [address] [phone] documented as of this encounter Visit Diagnoses Not on filedocumented in this encounter Care Teams Drywall Hanger Helper Relationship Specialty Start Date End Date Alexy Camarena DO [address] [place] [address] PCP - General Internal Medicine 08/01/22 documented as of this encounter
--- OUTSIDE RECORDS SUMMARY | 2025-01-29 08:52 | XMS_ITS | Clinical Summary ---
Author Organization [facility] it Address [address] [place] [address] Care Team Providers Care Account Services Analyst Name Role Phone Matty Jimenez MD Primary Care Provider Unavailab le Encounters Date Type Department Care Team Description 11/10/2024 Telephone Gastroenterology - [address] [place] [phone] Austin Alas MD from Last 3 Months [...] Date Comments Lupus (systemic lupus erythe matosus) ([facility]) DX:Lupus (systemic lupus erythematosus) ([facility]); COMMENT: right lung crystalized Herniated disc DX:Herniated dis c H/O colonoscopy 2013 DX:H/O colonosco py Colon polyps DX:Colon polyps Other specified personal his tory presenting hazards to health(V15.89) 2006 DX:Other specifie d personal history presenting hazards to health(V15.89); COMMENT: uterine Renal calculi 01/2016 DX:Renal calculi ; COMMENT: [facility], Dr. Ford Breast cancer 1998, 2002 DX:Breast cancer (HCC); COMMENT: rt Dr. Eliza Quiroz Multiple lipomas [...] Procedure Name Priority Date/Time Associated Diagnosis Comments SCR MAMMO BI INCL CAD Routine 01/30/2019 2:19 PM EDT Encounter for screening mammogram for malignant neoplasm of breast from Last 3 Months or Most Recently Relevant to Health Maintenance Results * SCR MAMMO BI INCL CAD (01/30/2019 [...] Recently Relevant to Health Maintenance Care Teams Account Services Analyst Relationship Specialty Start Date End Date Matty Jimenez MD PCP - General Internal Medicine 11/30/14
== END 2025-01-29 09:14 | disposition home or self-care (01) ==
PROVIDERS: PCP Internal Medicine; Visit Provider Surgery
DX: N64.4 Mastodynia (principal)
CPT/HCPCS: 99213

== ENCOUNTER → 2025-01-29 08:37 | Outpatient (BNVA) | payer MEDICARE, SELFPAY | PROVIDERS: PCP Internal Medicine; Visit Provider Surgery | DX: N64.4 Mastodynia (principal) | CPT/HCPCS: 99212 ==

== ENCOUNTER 2025-02-04 12:50 | Outpatient (AMB) | payer MEDICARE, MEDICAID, SELFPAY ==
--- NOTE | 2025-02-04 13:08 | MHC.OFFVIS ---
Vital Signs 02/04/25 13:12 Height 5 ft 3 in BMI Reason not done Patient refused/unable BP 126/68 Blood Pressure Location Lt brachial Position Sitting Pulse 72 Pulse Source Pulse Oximeter Intake Visit Reasons: 3 mth s/p cta/ holter/ labs Allergies aspirin Allergy (Intermediate, Verified 01/29/25 08:44) Rash and Hives omalizumab [From Xolair] Allergy (Intermediate, Verified 01/29/25 08:44) Angioedema Almonds,hazenuts,fresh fruits, Allergy (Severe, Uncoded 01/29/25 08:44) Hives/Rash Chlorhexidine Allergy (Severe, Uncoded 01/29/25 08:44) Rash and Hives Dye HALF-WAY Blue 1 Allergy (Severe, Uncoded 01/29/25 08:44) Rash and Hives fresh fruits Allergy (Severe, Uncoded 01/29/25 08:44) Rash and Hives onions Allergy (Severe, Uncoded 01/29/25 08:44) Rash and Hives Chlora Prep Allergy (Intermediate, Uncoded 01/29/25 08:44) rash peanuts Allergy (Intermediate, Uncoded 01/29/25 08:44) Rash Medication List - Last Reconciled 02/04/25 by Serge Parks NP acetaminophen (Tylenol Extra Strength) 500 mg PO Q6H PRN albuterol sulfate 90 mcg/actuation (ProAir HFA) 1 inh inhalation QID albuterol sulfate 90 mcg/actuation 2 puffs PO Q4H PRN 90 days albuterol sulfate 2.5 mg (3 mL) inhalation Q4-6H PRN benralizumab (Fasenra Pen) 30 mg subcut Q8W benzonatate 200 mg PO TID PRN budesonide-formoterol 160-4.5 mcg/actuation (Symbicort) 2 puffs inhalation BID 30 days desloratadine (Clarinex) 5 mg PO DAILY diclofenac sodium 1% 4 grams topical QID epinephrine (EpiPen 2-Teofilo) 0.3 mg (0.3 mL) IM Q10M PRN 90 days famotidine 20 mg PO BID umvrilramxe-uzcjmuhcv-ahmbzjxp 200-62.5-25 mcg (Trelegy Ellipta) 1 inh inhalation DAILY 90 days galcanezumab-gnlm (Emgality Pen) 120 mg subcut ONCE 30 days hydrochlorothiazide 12.5 mg PO DAILY hydroxychloroquine 200 mg PO DAILY lidocaine 5% (Lidoderm) 1 patch topical DAILY 30 days loratadine 10 mg PO DAILY 90 days magnesium oxide 400 mg PO BID methenamine hippurate 1 g PO BID montelukast 10 mg PO DAILY 90 days nebulizers As directed nitrofurantoin monohyd/m-cryst 100 mg 1 cap PO Q12H nortriptyline 50 mg PO BEDTIME 90 days omeprazole 40 mg PO DAILY 30 days ondansetron 4 mg PO Q8H PRN potassium citrate ER (Urocit-K 10) 10 mEq PO TID prednisone 40 mg (2 x 20 mg) PO BID rosuvastatin 0 mg PO sumatriptan succinate 50 mg PO Q2-4H PRN 30 days tamoxifen 20 mg PO DAILY tamsulosin 0.4 mg PO BEDTIME ubrogepant (Ubrelvy) 50 - 100 mg (0.5 - 1 x 100 mg) PO ONCE PRN 30 days umeclidinium 62.5 mcg/actuation (Incruse Ellipta) 1 inh inhalation DAILY 30 days zolpidem (Ambien) 5 mg PO BEDTIME PRN 30 days HPI Comments Details: This is a 69-year-old female patient with a history of asthma, hyperlipidemia, and systemic lupus erythematous coming in for a follow-up visit. Patient was referred initially to us by pulmonology for ongoing chest pain and palpitations. She had previously seen [facility] for this and had negative nuclear stress test as well as echocardiogram. Patient mentions that during that time she was treated for varicose veins and there was some mentioned about arrhythmia. The patient was then seen at the office here and subsequently was ordered a repeat echocardiogram, Holter monitor, and coronary CTA. Today, the patient continues to experience intermittent chest pain with associated numbness and tingling in her arms. The patient notes that is her pain is triggered by stress as well as exertion such as walking up a flight of stairs. She reports that sometimes she is sitting watching TV and is gasping for air. Patient otherwise is denying any palpitations, dizziness, fatigue, orthopnea, PND, leg edema, presyncope, or syncope. Patient also states that she has been getting some rashes in her face and in her upper arms for which she is being followed up by the flight data technician. [facility] Medical History Chest pain Tachycardia Type 2 diabetes mellitus Varicose veins of bilateral lower extremities with pain GERD (gastroesophageal reflux disease) HLD (hyperlipidemia) History of renal calculi Hepatic steatosis History of breast cancer Chronic restrictive lung disease Insomnia Back pain Moderate persistent asthma Post herpetic neuralgia Kidney stones Chronic allergic rhinitis Atelectasis Asthma Surgical History Hx of eye surgery History of colonoscopy (08/30/19) History of excision of mass (08/27/19) History of cholecystectomy (07/21/19) History of cystoscopy (2010) History of arthroplasty of knee (1993) History of hemorrhoidectomy (1983) History of 2 sections History of tonsillectomy and adenoidectomy (1965) History of hysterectomy for cancer Family History Father No problems noted. Mother Chest pain Sister History of ovarian cancer, Onset Age: 49 Afib Maternal Aunt History of breast cancer Maternal Aunt History of breast cancer Maternal Aunt History of breast cancer Maternal Aunt History of breast cancer Social History Alcohol intake: never Patient Tobacco Use Status: Never used Tobacco Review of Systems Const Denies weakness ENT Denies dizziness Card Denies chest pain, Denies chest pain with activity, Denies syncope, Denies rapid heart rate, Denies pedal edema, Denies edema, Denies leg edema, Denies lightheadedness, Denies palpitations, Denies dyspnea, Denies dyspnea on exertion and Denies orthopnea Resp Denies cough, Denies dyspnea and Denies dyspnea on exertion GI Denies hematochezia and Denies change in stool character Musc Denies abnormal gait, Denies muscle cramps, Denies muscle weakness, Denies numbness, Denies radiating pain into limb and Denies tingling Neuro Denies abnormal gait, Denies dizziness, Denies syncope, Denies numbness, Denies tingling and Denies weakness Endo Denies palpitations Physical Exam Vital Signs: Last Vital Signs Pulse 72 02/04/25 13:12 BP 126/68 02/04/25 13:12 Const General: cooperative, healthy appearing, comfortable and no acute distress Orientation/consciousness: patient oriented x3 HEENT Head: Yes normal to inspection Neck Neck: Yes normal visual inspection, Yes trachea midline and Yes supple Chest Chest palpation & inspection: normal inspection of the chest Resp Effort & Inspection: normal respiratory effort Auscultation: clear to auscultation bilaterally, no crackles, no rales, no rhonchi and no wheezes Cardio Jugular venous distension: no JVD Palpation: normal PMI Rate: regular rate Rhythm: regular rhythm Heart sounds: S1 normal heart sound present, S2 normal heart sound present, no click, no gallops, no murmurs and no rubs Peripheral pulses: Peripheral pulses 2+ throughout GI Inspection: Yes normal to inspection Palpation (GI): Soft to palpation Auscultation: normal bowel sounds Skin General skin exam: no rashes or lesions noted Neuro General: patient oriented x3 Extrem General: Yes normal to inspection, No no pedal edema and No calf tenderness Psych Appearance: grossly normal Mental Status: mental status grossly normal Speech and movement: Normal speech and movement present Assessment & Plan Assessment & Plan (1) Chest pain: Code(s): R07.9 - Chest pain, unspecified Category: Medical (2) Dyspnea: Code(s): R06.00 - Dyspnea, unspecified Category: Medical Qualifiers: Dyspnea type: dyspnea on exertion Qualified Code(s): R06.09 - Other forms of dyspnea Plan 11/23/2024-Holter study showed normal sinus rhythm with the average heart rate of 83 beats per minute. 11/23/2024-echo study showed normal EF at 59% with dgss-zn-[id number] tricuspid valve regurgitation. 01/06/2025-patient underwent a coronary CTA that showed no significant coronary artery disease. Given these findings, the patient's symptoms are likely noncardiac in origin. However due to patient's history of lupus, we will proceed with a cardiac MRI to further rule out myocarditis or pericarditis. Patient is allergic to contrast and we will premedicate her for this with Pepcid, prednisone, and Benadryl. Advised heart healthy diet, regular exercise, losing weight, and compliance with her medications. We will follow-up after MRI. In the interim, patient will call us with any concerns or change in symptoms. Advised patient to seek ER care in case of chest pain with exertion not resolved with rest. This note was generated using voice recognition software. While every effort has been made to ensure accuracy and proper licensed staff mft, there may be occasional errors that could affect the content or meaning of the described symptoms. Orders: Orders MR cardiac morph fnct w con Today R07.9 - Chest pain, unspecified Basic Metabolic Panel Today R07.9 - Chest pain, unspecified Medications: Refilled famotidine start 1 day before and last dose on morning of procedure. 20 mg PO BID 3 tabs 0RF prednisone Start one day before and last dose on morning of the procedure 40 mg (2 x 20 mg) PO BID 6 tabs 0RF Coding Level of Care Code Est Pt Level 4 (75290) Complex EM visit Add On G2211 Diagnoses Chest pain R07.9 Dyspnea on exertion R06.09 Dyspnea type: dyspnea on exertion Time Spent (min) 34 Comment Time spent in reviewing the chart, test results, assessment, counseling and documentation.
[2025-02-04 13:12] VITALS: BP 126/68; PULSE 72
--- OUTSIDE RECORDS SUMMARY | 2025-02-04 15:52 | XMS_ITS | Clinical Summary ---
Author Organization [facility] it Address [address] [place] [address] Care Team Providers Care Supervisor Data Processing Name Role Phone Matty Jimenez MD Primary Care Provider Unavailab le Encounters Date Type Department Care Team Description 11/10/2024 Telephone Gastroenterology - [address] [place] [phone] Austin Alas MD from Last 3 Months [...] Date Comments Lupus (systemic lupus erythe matosus) ([facility]/HCC) DX:Lupus (systemic lupus erythematosus) (HCC); COMMENT: right [...] Recently Relevant to Health Maintenance Care Teams Supervisor Data Processing Relationship Specialty Start Date End Date Matty Jimenez MD PCP - General Internal Medicine 11/30/14
--- OUTSIDE RECORDS SUMMARY | 2025-02-04 15:52 | XMS_ITS | Encounter Summary ---
Author Organization [facility] Address [address] [address] Phone Care Team Providers Care Vp Hr Diversity Name Role Phone Alexy Camarena DO Primary Care Provider Encounter Details Date Type Department Care Team (Late st Contact Info) Description 01/20/2025 Office Communication [facility] [address] [phone] Annabelle Valverde [address] [place] [phone] Social History Tobacco Use Types Packs/Day [...] [facility] [address] documented in this encounter Plan of Treatment Upcoming Encounters Date Type Department Care Team (Latest Contact Info) Description 02/26/2025 9:00 AM EDT Office Visit [facility] [address] [place] [phone] Lior Cabrera MD [address] [phone] 03/02/2025 Orders Only [facility] [address] [phone] Lior Cabrera MD [facility] [address] [phone] Renal stone; Systemic lupus erythematosus with organ or system involvement, not otherwise specified (HCC) documented as of this encounter Visit Diagnoses Not on filedocumented in this encounter Care Teams Vp Hr Diversity Relationship Specialty Start Date End Date Alexy Camarena DO [address] [place] [id number] PCP - General Internal Medicine 08/01/22 documented as of this encounter
--- OUTSIDE RECORDS SUMMARY | 2025-02-04 15:52 | XMS_ITS | Clinical Summary ---
Author Organization [facility] Address [address] [place] [address] Phone Care Team Providers Care Garage Construction Equipment Mechanic Name Role Phone Nicol Alexy GARCIA Primary Care Provider [phone] Allergies Active Allergy Reactions Criticality Noted Date [...] Office Communication [facility] [address] [phone] Annabelle Valverde from Last 3 Months Family [...] Office Visit [facility] [address] [phone] Lior Cabrera MD [address] [phone] 03/02/2025 Orders Only [facility] [address] [facility] [address] [place] [phone] Lior Cabrera MD [address] [phone] Renal stone; Systemic lupus erythematosus with organ or system involvement, not otherwise specified (HCC) Health Maintenance Due Date Last Done Comments Breast Cancer Screening 1955 Pneumococcal Vaccine: 65+ Ye ars (1 of 2 - PCV) 1963 Colorectal Cancer Screening: Annual FOBT 2006 Colorectal Cancer Screening: Colonoscopy 2006 Colorectal Cancer Screening: Sigmoidoscopy 2006 Influenza Vaccine (#1) 2024 Hepatitis B Vaccine Aged Out No longe r eligible based on patient's age to complete this topic Insurance MEDICAID [place] [facility] Care Teams Garage Construction Equipment Mechanic Relationship Specialty Start Date End Date Alexy Camarena DO [address] [place] [phone] PCP - General Internal Medicine 08/01/22
== END 2025-02-04 13:41 | disposition home or self-care (01) ==
PROVIDERS: PCP Internal Medicine
DX: R07.9 Chest pain, unspecified (principal); R06.09 Other forms of dyspnea
CPT/HCPCS: 99214; G2211

== ENCOUNTER → 2025-02-04 12:50 | Outpatient (BNVA) | payer MEDICARE, SELFPAY | PROVIDERS: PCP Internal Medicine | DX: R07.9 Chest pain, unspecified (principal); R06.09 Other forms of dyspnea | CPT/HCPCS: 99212 ==

== ENCOUNTER 2025-02-18 08:41 | Outpatient (AMB) | payer MEDICARE, SELFPAY ==
--- NOTE | 2025-02-18 08:46 | MHC.OFFVIS ---
Vital Signs 02/18/25 08:47 Height 5 ft 3 in BP 110/80 Blood Pressure Location Rt brachial Position Sitting Pulse 49 L Pulse Source Pulse Oximeter Pulse Oximetry (%) 99 Oxygen Delivery Method Room Air Intake Visit Reasons: Follow up 3mo Intake Note: Patient is here for left knee pain and injection. Accompanied by: Self / Same As Patient Allergies aspirin Allergy (Intermediate, Verified 02/18/25 09:06) Rash and Hives omalizumab [From Xolair] Allergy (Intermediate, Verified 02/18/25 09:06) Angioedema Almonds,hazenuts,fresh fruits, Allergy (Severe, Uncoded 01/29/25 08:44) Hives/Rash Chlorhexidine Allergy (Severe, Uncoded 01/29/25 08:44) Rash and Hives Dye RESIDENTIAL Blue 1 Allergy (Severe, Uncoded 01/29/25 08:44) Rash and Hives fresh fruits Allergy (Severe, Uncoded 01/29/25 08:44) Rash and Hives onions Allergy (Severe, Uncoded 01/29/25 08:44) Rash and Hives Chlora Prep Allergy (Intermediate, Uncoded 01/29/25 08:44) rash peanuts Allergy (Intermediate, Uncoded 01/29/25 08:44) Rash HPI HPI Follow up 3mo: Details: In October she developed erythematous circular lesions on her extremities with pruritus/burning that would come and go within hours. Lesion would not last more than a day. She continues to have lesions on her extremities. She showed me photos with recent lesion occurring on her left CMC then resolving. Today she has slight erythema of her left CMC and reports that she is having a sensation that a new 1 is starting. Denies new medication or infection precipitating rash. Denies fevers, dyspnea, pleurisy, oral ulcers, Raynaud's phenomenon, urinary symptoms, new joint swelling and pain. She has dry eyes and dry mouth. She continues to have left knee pain. PT did not call her to set up physical therapy. [facility] Medical History Chest pain Tachycardia Type 2 diabetes mellitus Varicose veins of bilateral lower extremities with pain GERD (gastroesophageal reflux disease) HLD (hyperlipidemia) History of renal calculi Hepatic steatosis History of breast cancer Chronic restrictive lung disease Insomnia Back pain Moderate persistent asthma Post herpetic neuralgia Kidney stones Chronic allergic rhinitis Atelectasis Asthma Surgical History Hx of eye surgery History of colonoscopy (08/30/19) History of excision of mass (08/27/19) History of cholecystectomy (07/21/19) History of cystoscopy (2010) History of arthroplasty of knee (1993) History of hemorrhoidectomy (1983) History of 2 sections History of tonsillectomy and adenoidectomy (1965) History of hysterectomy for cancer Family History Father No problems noted. Mother Chest pain Sister History of ovarian cancer, Onset Age: 49 Afib Maternal Aunt History of breast cancer Maternal Aunt History of breast cancer Maternal Aunt History of breast cancer Maternal Aunt History of breast cancer Social History Alcohol intake: never Patient Tobacco Use Status: Never used Tobacco Review of Systems Const All systems reviewed & are unremarkable except as noted in HPI and below Physical Exam Vital Signs: Last Vital Signs Pulse 49 L 02/18/25 08:47 BP 110/80 02/18/25 08:47 Pulse Ox 99 02/18/25 08:47 Oxygen Delivery Method Room Air 02/18/25 08:47 Const Other: General: Comfortable CVS: RRR Respiratory: clear to auscultation bilaterally. Good respiratory effort Skin: Slight erythema surrounding left CMC. Squaring of left CMC. MSK: Tender to palpate medial and lateral hamstring muscle extending to the tendon insertion site. She also has left knee joint line tenderness without effusion palpated. Knee flexion 45 degrees with pain. Assessment & Plan Assessment & Plan (1) Rash: Comment: Erythematous raised lesions are suspicious for hives especially with time course of onset and spontaneous resolution within hours and less than a day. Labs in expanse reviewed, which reveal ADLI low titer positive 1:160 with no cytopenias, normal kidney function and normal complements. My clinical suspicion for cutaneous manifestation of systemic lupus erythematosus is low. She is having sicca symptoms. I will obtain SSA/SSB antibody. I recommend that she see Dermatology for evaluation and possible skin biopsy she has an active lesion. Code(s): R21 - Rash and other nonspecific skin eruption Category: Medical Plan: Labs ordered to complete lupus workup with double-stranded DNA. SSA, SSB, hepatitis-B and C panel and inflammatory markers ordered. I recommend that she contact PCP for referral to Dermatology (2) Hamstring strain: Comment: Bilateral left worse than right. We discussed conservative management. Code(s): S76.319A - Strain of muscle, fascia and tendon of the posterior muscle group at thigh level, unspecified thigh, initial encounter Category: Medical Qualifiers: Encounter type: initial encounter Laterality: unspecified laterality Qualified Code(s): S76.319A - Strain of muscle, fascia and tendon of the posterior muscle group at thigh level, unspecified thigh, initial encounter Plan: Apply ice to the affected area twice a day. Continue Tylenol maximum dose 4000 mg daily Continue diclofenac gel 1% apply to affected area twice a day minimum. She can use up to 4 times a day. Aspirin allergy. Contraindication to oral NSAID use. PT referral placed again Continue to wear knee hinged brace Return to clinic in 3 months (3) Osteoarthritis of knees, bilateral: Comment: Pain is uncontrolled. Hamstring strain is contributing to most of her pain with concurrent osteoarthritis in the background. We discussed conservative management. Code(s): M17.0 - Bilateral primary osteoarthritis of knee Category: Medical Qualifiers: Osteoarthritis type: primary Qualified Code(s): M17.0 - Bilateral primary osteoarthritis of knee Plan: See above. (4) Osteoarthritis of CMC joint of thumb: Comment: Pain is controlled with last cortisone injection Code(s): M18.9 - Osteoarthritis of first carpometacarpal joint, unspecified Category: Medical Qualifiers: Osteoarthritis type: primary Laterality: left Qualified Code(s): M18.12 - Unilateral primary osteoarthritis of first carpometacarpal joint, left hand Plan: Continue to monitor clinically Orders: Orders Hepatitis B,C Profile Today R21 - Rash and other nonspecific skin eruption Sm Sm/PERSONAL CAREGIVER Antibodies Today R21 - Rash and other nonspecific skin eruption Erythrocyte Sedimentation Rate Today R21 - Rash and other nonspecific skin eruption PT Evaluation and Treatment Today M17.0 - Bilateral primary osteoarthritis of knee, S76.319A - Strain of muscle, fascia and tendon of the posterior muscle group at thigh level, unspecified thigh, initial encounter C Reactive Protein Today R21 - Rash and other nonspecific skin eruption Coding Level of Care Code Est Pt Level 4 (87212) Complex EM visit Add On G2211 Diagnoses Rash R21 Hamstring strain, unspecified laterality, initial encounter S76.319A Encounter type: initial encounter Laterality: unspecified laterality Primary osteoarthritis of both knees M17.0 Osteoarthritis type: primary Primary osteoarthritis of first carpometacarpal joint of left hand M18.12 Osteoarthritis type: primary Laterality: left
[2025-02-18 08:47] VITALS: BP 110/80; PULSE 49; O2SAT 99
--- OUTSIDE RECORDS SUMMARY | 2025-02-18 09:00 | XMS_ITS | Clinical Summary ---
Author Organization [facility] Address [address] [place] [address] Phone Care Team Providers Care Instrument Installer Name Role Phone Nicol Alexy GARCIA Primary Care Provider [phone] Allergies Active Allergy Reactions Criticality Noted Date [...] Encounters Date Type Department Care Team Description 02/05/2025 Orders Only [facility] [address] [place] [address] [phone] Lior Cabrera MD 01/20/2025 Office Communication [facility] [address] [phone] Annabelle Valverde from Last 3 Months Family [...] Office Visit [facility] [place] [id number] [phone] Lior Cabrera MD [address] [facility] [address] [place] [address] 03/02/2025 Orders Only [facility] [address] [facility] [address] [place] [address] Lior Cabrera MD [address] [facility] [address] [place] [address] Renal stone; Systemic lupus erythematosus with organ or system involvement, not otherwise specified (HCC) Health Maintenance Due Date Last Done Comments Breast Cancer Screening 1957 Pneumococcal Vaccine: 50+ Ye ars (1 of 2 - PCV) 1963 Colorectal Cancer Screening: Annual FOBT 2006 Colorectal Cancer Screening: Colonoscopy 2006 Colorectal Cancer Screening: Sigmoidoscopy 2006 Influenza Vaccine (Season Ended) 2025 Hepatitis B Vaccine Aged Out No longe r eligible based on patient's age to complete this topic Procedures Procedure Name Priority Date/Time Associated Diagnosis Comments PTH, INTACT Routine 02/06/2025 8:12 AM EDT FERRITIN Routine 02/06/2025 8:12 AM EDT MAGNESIUM Routine 02/06/2025 8:12 AM EDT PHOSPHATE ( PHOSPHORUS) Routine 02/06/2025 8:12 AM EDT URIC ACID Routine 02/06/2025 8:12 AM EDT ANTI-DNA ANTIBODY, DOUBLE-STRANDED Routine 02/06/2025 8:12 AM EDT VITAMIN D 25 HYDROXY Routine 02/06/2025 8:12 AM EDT C3 COMPLEMENT Routine 02/06/2025 8:12 AM EDT C4 COMPLEMENT Routine 02/06/2025 8:12 AM EDT HEMOGLOBIN A1C Routine 02/06/2025 8:12 AM EDT CYSTATIN C WITH EGFR Routine 02/06/2025 8:12 AM EDT URINE ALBUMIN / CREATININE RATIO Routine 02/06/2025 8:12 AM EDT PROTEIN / CREATININE RATIO, URINE Routine 02/06/2025 8:12 AM EDT IRON PANEL (FE, TIBC, TSAT) Routine 02/06/2025 8:12 AM EDT BASIC METABOLIC PANEL Routine 02/06/2025 8:12 AM EDT URINALYSIS WITH MICROSCOPIC Routine 02/06/2025 8:12 AM EDT CBC AND DIFFERENTIAL Routine 02/06/2025 8:12 AM EDT MICROSCOPIC EXAMINATION - DO NOT USE Routine 02/06/2025 8:12 AM EDT LITHOLINK KIDNEY STONE URINE PANEL Routine 02/05/2025 3:00 AM EDT from Last 3 Months Results * Cystatin C w/GFR (02/06/2025 8:12 AM EDT) Cystatin C 1.03 0.72 - 1.16 mg/L [facility] eGFR by Cystatin C 68 >59 mL/min/1.7 3 [facility] 02/06/2025 8:12 AM EDT 02/06/2025 us Lior Cabrera MD LAB BLOOD ORDERABLES Final Result [facility] [place] [address] * (ABNORMAL) Microscopic Examination (02/06/2025 8:12 AM EDT) WBC, Urine 11-30(A) 0 - 5 /hpf [facility] RBC, Urine None seen 0 - 2 /hpf [facility] Squamous Epithelial, Urine >10(A) 0 - 10 /hpf [facility] Casts None seen None seen /lpf [facility] Bacteria, Urine Many(A) None seen/Few [facility] 02/06/2025 8:12 AM EDT 02/06/2025 Lior Cabrera MD LAB MICROBIOLOGY - GE NERAL ORDERABLES Final Result Performing Organization Address City/[facility]/ZIP Co de Phone Number [facility] [address] [place] [address] * Iron Panel (Fe, TIBC, TSAT) (02/06/2025 8:12 AM EDT) TIBC 381 250 - 450 ug/dL [facility] UIBC 311 118 - 369 ug/dL [facility] Iron 70 27 - 139 ug/dL [facility] Iron Saturation (TSat) 18 15 - 55 % [facility] 02/06/2025 8:12 AM EDT 02/06/2025 us Lior Cabrera MD LAB BLOOD ORDERABLES Final Result Performing Organization Address [facility]/ZIP Co de Phone Number [facility] [address] [place] [address] * Protein, Total, Random Urine w/Creatinine (Protein/Creat Ratio) (02/06/2025 8:12 AM EDT) Creatinine, Ur 252.9 Not Estab. mg/dL [facility] Protein, Ur 45.6 Not Estab. mg/dL [facility] Urine Protein/Creatin ine Ratio 180 0 - 200 mg/g creat [facility] 02/06/2025 8:12 AM EDT 02/06/2025 Lior Cabrera MD LAB URINE ORDERABLES Final Result Performing Organization Address [facility] Co de Phone Number [facility] [address] [place] [address] * Urine Albumin / Creatinine Ratio (02/06/2025 8:12 AM EDT) Albumin, Urine 49.6 Not Estab. ug/mL [facility] Albumin/Creatin ine Ratio 20 0 - 29 mg/g creat [facility] Comment: ? Normal: ?0 - ??29 ? Moderately increased: 30 - 300 ? Severely increased: ? >300 02/06/2025 8:12 AM EDT 02/06/2025 Lior Cabrera MD LAB URINE ORDERABLES Final Result Performing Organization Address [facility] de Phone Number [facility] [address] [place] [address] * Anti-DNA antibody, double-stranded (02/06/2025 8:12 AM EDT) DS DNA Ab <1 0 - 9 IU/mL [facility] Comment: ? Negative ?<5 ? Equivocal ??5 - 9 ? Positive ?>9 02/06/2025 8:12 AM EDT 02/06/2025 Lior Cabrera MD LAB BLOOD ORDERABLES Final Result [facility] [address] [place] [address] * (ABNORMAL) Vitamin D 25 Hydroxy (02/06/2025 8:12 AM EDT) Pathologist [facility] Vitamin D, 25-OH, Total 25.3(L) 30.0 - 100.0 ng/mL [facility] Comment: Vitamin D deficiency has been defined by the [place] of [employer] and an Endocrine Society practice guideline as a level of serum 25-OH vitamin D less than 20 ng/mL (1,2). The Endocrine Society went on to further define vitamin D insufficiency as a level between 21 and 29 ng/mL (2). 1. IOM ([place] of [employer]). 2010. Dietary reference ?? intakes for calcium and D. [place]: The ?? National Academies Press. 2. Maggie MF, Partha [place], Wero QUIROZ, et al. ?? Evaluation, treatment, and prevention of vitamin D ?? deficiency: an Endocrine Society clinical practice ?? guideline. JCEM. 2011 [place]; 96(7):1911-30. 02/06/2025 8:12 AM EDT 02/06/2025 us Lior Cabrera MD LAB BLOOD ORDERABLES Final Result [facility] [address] [place] [address] * (ABNORMAL) Urinalysis with microscopic (02/06/2025 8:12 AM EDT) Specific [place], Urine 1.029 1.005 - 1.030 [facility] pH Urine 5.5 5.0 - 7.5 [facility] Color, Urine Yellow Yellow [facility] Appearance Urine Cloudy(A) Clear [facility] WBC Esterase Urine 2+(A) Negative [facility] [phone] Protein, Ur 1+(A) Negative/Tra ce [facility] Glucose, Ur Negative Negative [facility] Ketones, Urine Trace(A) Negative [facility] [phone] Blood Urine Negative Negative [facility] [phone] Bilirubin Urine Negative Negative [facility] [phone] Urobilinogen Urine 0.2 0.2 - 1.0 mg/dL [facility] [phone] Nitrite, Urine Negative Negative [facility] Microscopic Examination See below: [facility] Comment:Microscopic was harriet cated and was performed. 02/06/2025 8:12 AM EDT 02/06/2025 us Lior Cabrera MD LAB URINE ORDERABLES Final Result [facility] [address] [place] [address] * CBC and Differential (02/06/2025 8:12 AM EDT) WBC 6.0 3.4 - 10.8 x10E3/uL [facility] RBC 4.63 3.77 - 5.28 x10E6/uL [facility] Hemoglobin 13.8 11.1 - 15.9 g/dL [facility] Hematocrit 41.8 34.0 - 46.6 % [facility] MCV 90 79 - 97 fL [facility] MCH 29.8 26.6 - 33.0 pg [facility] MCHC 33.0 31.5 - 35.7 g/dL [facility] RDW 12.9 11.7 - 15.4 % [facility] Platelets 241 150 - 450 x10E3/uL [facility] Neutrophils Relative 54 Not Estab. % [facility] Lymphocytes Relative 36 Not Estab. % [facility] Monocytes 10 Not Estab. % [facility] Eosinophils Relative 0 Not Estab. % [facility] Basophils Relative 0 Not Estab. % [facility] Neutrophils Absolute 3.3 1.4 - 7.0 x10E3/uL [facility] Lymphocytes Absolute 2.2 0.7 - 3.1 x10E3/uL [facility] Monocytes Absolute 0.6 0.1 - 0.9 x10E3/uL [facility] Eosinophils Absolute 0.0 0.0 - 0.4 x10E3/uL [facility] Basophils Absolute 0.0 0.0 - 0.2 x10E3/uL [facility] Immature Granulocytes 0 Not Estab. % [facility] Immature Grans (Absolute) 0.0 0.0 - 0.1 x10E3/uL [facility] 02/06/2025 8:12 AM EDT 02/06/2025 us Lior Cabrera MD LAB BLOOD ORDERABLES Final Result [facility] [address] [place] [address] * (ABNORMAL) C3 Complement (02/06/2025 8:12 AM EDT) C3 Complement 171(H) 82 - 167 mg/dL [facility] 02/06/2025 8:12 AM EDT 02/06/2025 us Lior Cabrera MD LAB BLOOD ORDERABLES Final Result Performing Organization Address City[facility]/ZIP Co de Phone Number [facility] [address] [place] [address] * C4 Complement (02/06/2025 8:12 AM EDT) C4 Complement 37 12 - 38 mg/dL [facility] 02/06/2025 8:12 AM EDT 02/06/2025 us Lior Cabrera MD LAB BLOOD ORDERABLES Final Result [facility] [address] [place] [address] * Uric Acid (02/06/2025 8:12 AM EDT) Uric Acid 6.1 3.0 - 7.2 mg/dL [facility] Comment:Therapeutic target f or gout patients: <6.0 02/06/2025 8:12 AM EDT 02/06/2025 Lior Cabrera MD LAB BLOOD ORDERABLES Final Result [facility] [address] [place] [address] * Phosphorus (02/06/2025 8:12 AM EDT) Phosphorus 3.2 3.0 - 4.3 mg/dL [facility] 02/06/2025 8:12 AM EDT 02/06/2025 Lior Cabrera MD LAB BLOOD ORDERABLES Final Result [facility] [address] [place] [address] * PTH, Intact (02/06/2025 8:12 AM EDT) PTH 37 15 - 65 pg/mL [facility] 02/06/2025 8:12 AM EDT 02/06/2025 Lior Cabrera MD LAB BLOOD ORDERABLES Final Result [facility] [address] [place] [address] * Magnesium (02/06/2025 8:12 AM EDT) Magnesium 2.0 1.6 - 2.3 mg/dL [facility] 02/06/2025 8:12 AM EDT 02/06/2025 Lior Cabrera MD LAB BLOOD ORDERABLES Final Result Performing Organization Address City[facility] Co de Phone Number [facility] [address] [place] [address] * (ABNORMAL) Hemoglobin A1c (02/06/2025 8:12 AM EDT) Hemoglobin A1C 6.2(H) 4.8 - 5.6 % [facility] Comment: ? Prediabetes: 5.7 - 6.4 ? Diabetes: >6.4 ? Glycemic control for adults with diabetes: <7.0 02/06/2025 8:12 AM EDT 02/06/2025 us Lior Cabrera MD LAB BLOOD ORDERABLES Final Result Performing Organization Address [facility] Co de Phone Number [facility] [address] [place] [address] * Ferritin (02/06/2025 8:12 AM EDT) Ferritin 137 15 - 150 ng/mL [facility] 02/06/2025 8:12 AM EDT 02/06/2025 us Lior Cabrera MD LAB BLOOD ORDERABLES Final Result Performing Organization Address City[facility] Co de Phone Number [facility] [address] [place] [address] * (ABNORMAL) Basic Metabolic Panel (02/06/2025 8:12 AM EDT) Glucose 102(H) 70 - 99 mg/dL [facility] BUN 17 8 - 27 mg/dL [facility] Creatinine 0.85 0.57 - 1.00 mg/dL [facility] eGFR CKD-EPI CR 2020 75 >59 mL/min/1.7 3 [facility] BUN/Creatinine Ratio 20 12 - 28 [facility] Sodium 141 134 - 144 mmol/L [facility] Potassium 4.4 3.5 - 5.2 mmol/L [facility] Chloride 104 96 - 106 mmol/L [facility] Bicarbonate (CO2) 21 20 - 29 mmol/L [facility] Calcium 9.8 8.7 - 10.3 mg/dL [facility] 02/06/2025 8:12 AM EDT 02/06/2025 us Lior Cabrera MD LAB BLOOD ORDERABLES Final Result [facility] [address] [place] [address] * (ABNORMAL) Litholink Kidney Stone Urine Panel, 24 Hour (02/05/2025 3:00 AM EDT) Cystine, Ur CANCELED [facility] Comment: Test not performed. Previous test results on file. Result canceled by the ancillary. Urine Volume (Preservative) 1,350 500 - 4,000 mL/24 hr [facility] Calcium Oxalate 9.97 6.00 - 10.00 [facility] Calcium, 24H Urine 260(H) <200 mg/24 hr [facility] Oxalate, 24H Ur 34 20 - 40 mg/24 hr [facility] Citrate, 24H Ur 1,287 >550 mg/24 hr [facility] Calcium Phosphate Saturation 2.59(H) 0.50 - 2.00 [facility] pH, 24 Hr Urine 6.320(H) 5.800 - 6.200 [facility] Uric Acid Saturation 0.59 <1.00 [facility] Uric Acid, 24H Ur 771(H) <750 mg/24 hr [facility] Sodium, 24H Ur 236(H) 50 - 150 mmol/24 hr [facility] Potassium, 24H Ur 55 20 - 100 mmol/24 hr [facility] Magnesium, 24H Ur 43 30 - 120 mg/24 hr [facility] Phosphorus 24 Hour Urine 900 600 - 1,200 mg/24 hr [facility] Ammonia, 24 hr Urine 23 15 - 60 mmol/24 hr [facility] Chloride, 24H Ur 197 70 - 250 mmol/24 hr [facility] Sulfate, 24H Ur 42 20 - 80 meq/24 hr [facility] Urea Nitrogen, 24H Ur 9.34 6.00 - 14.00 g/24 hr [facility] Protein Catabolic Rate, (14) CANCELED g/kg/24 hr [facility] Comment: Test not performed A required component of the calculation is missing. ??As a result, this calculation cannot be performed. Result canceled by the ancillary. Creatinine in 24 hour Urine 1,445 Not Applic. mg/24 hr [facility] Creatinine/KG Body Weight CANCELED mg/24 hr/kg [facility] Comment: Test not performed A required component of the calculation is missing. ??As a result, this calculation cannot be performed. Result canceled by the ancillary. Calcium/KG Body Weight CANCELED mg/24 hr/kg [facility] Comment: Test not performed A required component of the calculation is missing. ??As a result, this calculation cannot be performed. Result canceled by the ancillary. Calcium/Creat.Ra sheila 180 51 - 262 mg/g creat [facility] Comment Note [facility] PDF . [facility] 02/05/2025 3:00 AM EDT 02/11/2025 Lior Cabrera MD LAB URINE ORDERABLES Edited Result - Final [facility] [address] [place] [phone] from Last 3 Months Insurance [place] [facility] Care Teams Instrument Installer Relationship Specialty Start Date End Date Alexy Camarena DO [address] [place] [id number] PCP - General Internal Medicine 08/01/22
--- OUTSIDE RECORDS SUMMARY | 2025-02-18 09:00 | XMS_ITS | Clinical Summary ---
Author Organization [facility] it Address [address] [place] [address] Care Team Providers Care Process Laboratory Specialist Name Role Phone Matty Jimenez MD Primary Care Provider Unavailab le Surgical History Surgery Date Site/Laterality Comments TUBAL [...] Date Comments Lupus (systemic lupus erythe matosus) ([facility] V24, [facility] V28) DX:Lupus (systemic lupus erythematosus) ([facility]); COMMENT: right lung crystalized Herniated disc DX:Herniated dis c H/O colonoscopy 2013 DX:H/O colonosco py Colon polyps DX:Colon polyps Other specified personal his tory presenting hazards to health(V15.89) 2006 DX:Other specifie d personal history presenting hazards to health(V15.89); COMMENT: uterine Renal calculi 01/2016 DX:Renal calculi ; COMMENT: [facility], Dr. Ford Breast cancer ([facility] V24, [facility] V28) 2002 DX:Breast cancer ([facility]); COMM ENT: rt Dr. Eliza Quiroz Multiple lipomas DX:Multiple lip omas History of uterine cancer DX:His tory of uterine cancer Fibromyalgia DX:Fibromyalgia Asthma DX:Asthma Seizure disorder ([facility] V2 4, [facility] V28) DX:Seizure disorder ([facility]) Family History Medical History Relation Name Comments [...] Vaccines (1 of 2) 1976 RSV Immunization Adult Patients (1 - Risk 60-74 years 1-dose series) 2017 Breast Cancer Screening 01/30/2021 01/31/20 19, 01/25/2018, 01/12/2017 Cholesterol Screening (Lipid Panel) 10/14/2022 Colorectal Cancer Screening: Colonoscopy 10/14/2022 Depression Screening 10/14/2022 Hepatitis C Screening 10/14/2022 Osteoporosis Screening (Bone Density Screening) 10/14/2022 Social Influencers of Health Screening 10/14/2022 Falls Risk Assessment 2022 Influenza Vaccine (Season Ended) 2025 HIB Vaccines Aged Out No longer eligi [...] age to complete this topic Meningococcal B Vaccine Aged Out No l onger eligible based on patient's age to complete [...] Recently Relevant to Health Maintenance Care Teams Process Laboratory Specialist Relationship Specialty Start Date End Date Matty Jimenez MD PCP - General Internal Medicine 11/30/14
== END 2025-02-18 10:03 | disposition home or self-care (01) ==
LOC: HO.RHES 08:41
PROVIDERS: PCP Internal Medicine; Visit Provider Internal Medicine Rheumatology
DX: R21 Rash and other nonspecific skin eruption (principal); S76.319A Strain of muscle, fascia and tendon of the posterior muscle group at thigh level, unspecified thigh, initial encounter; M17.0 Bilateral primary osteoarthritis of knee; M18.12 Unilateral primary osteoarthritis of first carpometacarpal joint, left hand
CPT/HCPCS: 99214; G2211

== ENCOUNTER → 2025-02-18 08:41 | Outpatient (BNVA) | payer MEDICARE, SELFPAY | PROVIDERS: PCP Internal Medicine; Visit Provider Internal Medicine Rheumatology | DX: R21 Rash and other nonspecific skin eruption (principal); S76.311A Strain of muscle, fascia and tendon of the posterior muscle group at thigh level, right thigh, initial encounter; S76.312A Strain of muscle, fascia and tendon of the posterior muscle group at thigh level, left thigh, initial encounter; X58.XXXA Exposure to other specified factors, initial encounter; M17.0 Bilateral primary osteoarthritis of knee; M18.12 Unilateral primary osteoarthritis of first carpometacarpal joint, left hand; Y93.9 Activity, unspecified; Y92.9 Unspecified place or not applicable; Y99.9 Unspecified external cause status | CPT/HCPCS: 99212 ==

== ENCOUNTER 2025-03-05 11:11 | Outpatient (REF) | payer MEDICARE, SELFPAY ==
--- OUTSIDE RECORDS SUMMARY | 2025-03-05 12:03 | XMS_ITS | Encounter Summary ---
Author Organization [facility] Address [address] [address] Phone Care Team Providers Care Area Coordinator Name Role Phone Alexy Camarena DO Primary Care Provider [phone] Encounter Details Date Type Department Care Team ([facility] Contact Info) Description 03/02/2025 Orders Only [facility] [address] [address] Lior Cabrera MD [facility] [address] Renal stone; Systemic lupus erythematosus with organ or system involvement, not otherwise specified (HCC) Social History Tobacco Use Types Packs/Day Years [...] on file documented as of this encounter Plan of Treatment Upcoming Encounters Date Type Department Care Team (Late Contact Info) Description 08/20/2025 9:15 AM EDT Office Visit [facility] [address] [place] [phone] Lior Cabrera MD [facility] [address] documented as of this encounter Procedures Procedure Name Priority Date/Time Associated Diagnosis Comments CYSTATIN C WITH EGFR Routine 02/06/2025 8:12 AM EDT MICROSCOPIC EXAMINATION - DO NOT USE Routine 02/06/2025 8:12 AM EDT IRON PANEL (FE, TIBC, TSAT) Routine 02/06/2025 8:12 AM EDT PROTEIN / CREATININE RATIO, URINE Routine 02/06/2025 8:12 AM EDT URINE ALBUMIN / CREATININE RATIO Routine 02/06/2025 8:12 AM EDT ANTI-DNA ANTIBODY, DOUBLE-STRANDED Routine 02/06/2025 8:12 AM EDT VITAMIN D 25 HYDROXY Routine 02/06/2025 8:12 AM EDT URINALYSIS WITH MICROSCOPIC Routine 02/06/2025 8:12 AM EDT CBC AND DIFFERENTIAL Routine 02/06/2025 8:12 AM EDT C3 COMPLEMENT Routine 02/06/2025 8:12 AM EDT C4 COMPLEMENT Routine 02/06/2025 8:12 AM EDT URIC ACID Routine 02/06/2025 8:12 AM EDT PHOSPHATE ( PHOSPHORUS) Routine 02/06/2025 8:12 AM EDT PTH, INTACT Routine 02/06/2025 8:12 AM EDT MAGNESIUM Routine 02/06/2025 8:12 AM EDT HEMOGLOBIN A1C Routine 02/06/2025 8:12 AM EDT FERRITIN Routine 02/06/2025 8:12 AM EDT BASIC METABOLIC PANEL Routine 02/06/2025 8:12 AM EDT documented in this encounter Results * PTH, Intact (02/06/2025 8:12 AM EDT) PTH 37 15 - 65 pg/mL [facility] 02/06/2025 8:12 AM EDT 02/06/2025 Lior Cabrera MD LAB BLOOD ORDERABLES Final Result [facility] [address] [place] [address] * Ferritin (02/06/2025 8:12 AM EDT) Ferritin 137 15 - 150 ng/mL [facility] 02/06/2025 8:12 AM EDT 02/06/2025 Lior Cabrera MD LAB BLOOD ORDERABLES Final Result Performing Organization Address City/[facility]/ZIP Co de Phone Number [facility] [address] [place] [address] * Magnesium (02/06/2025 8:12 AM EDT) Magnesium 2.0 1.6 - 2.3 mg/dL [facility] 02/06/2025 8:12 AM EDT 02/06/2025 Lior Cabrera MD LAB BLOOD ORDERABLES Final Result [facility] [address] [place] [address] * Phosphorus (02/06/2025 8:12 AM EDT) Phosphorus 3.2 3.0 - 4.3 mg/dL [facility] 02/06/2025 8:12 AM EDT 02/06/2025 us Lior Cabrera MD LAB BLOOD ORDERABLES Final Result Performing Organization Address [facility] Co de Phone Number [facility] [address] [place] [address] * Uric Acid (02/06/2025 8:12 AM EDT) Uric Acid 6.1 3.0 - 7.2 mg/dL [facility] Comment:Therapeutic target f or gout patients: <6.0 02/06/2025 8:12 AM EDT 02/06/2025 Lior Cabrera MD LAB BLOOD ORDERABLES Final Result Performing Organization Address [facility] Co de Phone Number [facility] [address] [place] [address] * Anti-DNA antibody, double-stranded (02/06/2025 8:12 AM EDT) Pathologist [facility] DS DNA Ab <1 0 - 9 IU/mL [facility] Comment: ? Negative ?<5 ? Equivocal ??5 - 9 ? Positive ?>9 02/06/2025 8:12 AM EDT 02/06/2025 Lior Cabrera MD LAB BLOOD ORDERABLES Final Result [facility] [address] [place] [address] * (ABNORMAL) Vitamin D 25 Hydroxy (02/06/2025 8:12 AM EDT) Vitamin D, 25-OH, Total 25.3(L) 30.0 - 100.0 ng/mL [facility] Comment: Vitamin D deficiency has been defined by the [place] of [employer] and an Endocrine Society practice guideline as a level of serum 25-OH vitamin D less than 20 ng/mL (1,2). The Endocrine Society went on to further define vitamin D insufficiency as a level between 21 and 29 ng/mL (2). 1. IOM ([place] of [employer]). 2010. Dietary reference ?? intakes for calcium and D. [place]: The ?? National Simple[employer]. 2. Maggie MF, Partha NC, Wero QUIROZ, et al. ?? Evaluation, treatment, and prevention of vitamin D ?? deficiency: an Endocrine Society clinical practice ?? guideline. JCEM. 2010; 96(7):1911-30. 02/06/2025 8:12 AM EDT 02/06/2025 Lior Cabrera MD LAB BLOOD ORDERABLES Final Result [facility] [address] [place] [address] * (ABNORMAL) C3 Complement (02/06/2025 8:12 AM EDT) C3 Complement 171(H) 82 - 167 mg/dL [facility] 02/06/2025 8:12 AM EDT 02/06/2025 Lior Cabrera MD LAB BLOOD ORDERABLES Final Result [facility] [address] [place] [address] * C4 Complement (02/06/2025 8:12 AM EDT) C4 Complement 37 12 - 38 mg/dL [facility] 02/06/2025 8:12 AM EDT 02/06/2025 Lior Cabrera MD LAB BLOOD ORDERABLES Final Result Performing Organization Address [facility] Co de Phone Number [facility] [address] [place] [address] * (ABNORMAL) Hemoglobin A1c (02/06/2025 8:12 AM EDT) Pathologist [facility] Hemoglobin A1C 6.2(H) 4.8 - 5.6 % [facility] Comment: ? Prediabetes: 5.7 - 6.4 ? Diabetes: >6.4 ? Glycemic control for adults with diabetes: <7.0 02/06/2025 8:12 AM EDT 02/06/2025 Lior Cabrera MD LAB BLOOD ORDERABLES Final Result [facility] [address] [place] [address] * Cystatin C w/GFR (02/06/2025 8:12 AM EDT) Cystatin C 1.03 0.72 - 1.16 mg/L [facility] e[facility] by Cystatin C 68 >59 mL/min/1.7 3 [facility] 02/06/2025 8:12 AM EDT 02/06/2025 Lior Cabrera MD LAB BLOOD ORDERABLES Final Result Performing Organization Address [facility] Co de Phone Number [facility] [address] [place] [address] * Urine Albumin / Creatinine Ratio (02/06/2025 8:12 AM EDT) Albumin, Urine 49.6 Not Estab. ug/mL [facility] Albumin/Creatin ine Ratio 20 0 - 29 mg/g creat [facility] Comment: ? Normal: ?0 - ??29 ? Moderately increased: 30 - 300 ? Severely increased: ? >300 02/06/2025 8:12 AM EDT 02/06/2025 Lior Cabrera MD LAB URINE ORDERABLES Final Result Performing Organization Address [facility] Co de Phone Number [facility] [address] [place] [address] * Protein, Total, Random Urine w/Creatinine (Protein/Creat Ratio) (02/06/2025 8:12 AM EDT) Creatinine, Ur 252.9 Not Estab. mg/dL [facility] Protein, Ur 45.6 Not Estab. mg/dL [facility] Urine Protein/Creatin ine Ratio 180 0 - 200 mg/g creat [facility] 02/06/2025 8:12 AM EDT 02/06/2025 Lior Cabrera MD LAB URINE ORDERABLES Final Result Performing Organization Address City/[facility]/ZIP Co de Phone Number [facility] [address] [place] [address] * Iron Panel (Fe, TIBC, TSAT) (02/06/2025 8:12 AM EDT) TIBC 381 250 - 450 ug/dL [facility] UIBC 311 118 - 369 ug/dL [facility] Iron 70 27 - 139 ug/dL [facility] Iron Saturation (TSat) 18 15 - 55 % [facility] 02/06/2025 8:12 AM EDT 02/06/2025 Lior Cabrera MD LAB BLOOD ORDERABLES Final Result Performing Organization Address City/[facility]/ZIP Co de Phone Number [facility] [address] [place] [address] * (ABNORMAL) Basic Metabolic Panel (02/06/2025 8:12 AM EDT) Glucose 102(H) 70 - 99 mg/dL [facility] BUN 17 8 - 27 mg/dL [facility] Creatinine 0.85 0.57 - 1.00 mg/dL [facility] eGFR CKD-EPI CR 2020 75 >59 mL/min/1.7 3 [facility] BUN/Creatinine Ratio 20 12 - 28 [facility] Sodium 141 134 - 144 mmol/L [facility] Potassium 4.4 3.5 - 5.2 mmol/L [facility] Chloride 104 96 - 106 mmol/L [facility] Bicarbonate (CO2) 21 20 - 29 mmol/L [facility] Calcium 9.8 8.7 - 10.3 mg/dL [facility] 02/06/2025 8:12 AM EDT 02/06/2025 Lior Cabrera MD LAB BLOOD ORDERABLES Final Result [facility] [address] [place] [address] * (ABNORMAL) Microscopic Examination (02/06/2025 8:12 AM EDT) WBC, Urine 11-30(A) 0 - 5 /hpf [facility] RBC, Urine None seen 0 - 2 /hpf [facility] Squamous Epithelial, Urine >10(A) 0 - 10 /hpf [facility] Casts None seen None seen /lpf [facility] Bacteria, Urine Many(A) None seen/Few [facility] 02/06/2025 8:12 AM EDT 02/06/2025 Lior Cabrera MD LAB MICROBIOLOGY - GE NERAL ORDERABLES Final Result [facility] [address] [place] [address] * (ABNORMAL) Urinalysis with microscopic (02/06/2025 8:12 AM EDT) Specific [place], Urine 1.029 1.005 - 1.030 [facility] pH Urine 5.5 5.0 - 7.5 [facility] Color, Urine Yellow Yellow [facility] [phone] Appearance Urine Cloudy(A) Clear [facility] WBC Esterase Urine 2+(A) Negative [facility] Protein, Ur 1+(A) Negative/Tra ce [facility] [phone] Glucose, Ur Negative Negative [facility] Ketones, Urine Trace(A) Negative [facility] Blood Urine Negative Negative [facility] Bilirubin Urine Negative Negative [facility] Urobilinogen Urine 0.2 0.2 - 1.0 mg/dL [facility] Nitrite, Urine Negative Negative [facility] Microscopic Examination See below: [facility] Comment:Microscopic was harriet cated and was performed. 02/06/2025 8:12 AM EDT 02/06/2025 us Lior Cabrera MD LAB URINE ORDERABLES Final Result [facility] [address] [place] [address] * CBC and Differential (02/06/2025 8:12 AM EDT) Pathologist [facility] WBC 6.0 3.4 - 10.8 x10E3/uL [facility] RBC 4.63 3.77 - 5.28 x10E6/uL [facility] Hemoglobin 13.8 11.1 - 15.9 g/dL [facility] Hematocrit 41.8 34.0 - 46.6 % [facility] MCV 90 79 - 97 fL [facility] MCH 29.8 26.6 - 33.0 pg [facility] MCHC 33.0 31.5 - 35.7 g/dL [facility] RDW 12.9 11.7 - 15.4 % [facility] Platelets 241 150 - 450 x10E3/uL [facility] Neutrophils Relative 54 Not Estab. % [facility] Lymphocytes Relative 36 Not Estab. % [facility] Monocytes 10 Not Estab. % [facility] Eosinophils Relative 0 Not Estab. % [facility] Basophils Relative 0 Not Estab. % [facility] Neutrophils Absolute 3.3 1.4 - 7.0 x10E3/uL [facility] Lymphocytes Absolute 2.2 0.7 - 3.1 x10E3/uL [facility] Monocytes Absolute 0.6 0.1 - 0.9 x10E3/uL [facility] Eosinophils Absolute 0.0 0.0 - 0.4 x10E3/uL [facility] Basophils Absolute 0.0 0.0 - 0.2 x10E3/uL [facility] Immature Granulocytes 0 Not Estab. % [facility] Immature Grans (Absolute) 0.0 0.0 - 0.1 x10E3/uL [facility] 02/06/2025 8:12 AM EDT 02/06/2025 us Lior Cabrera MD LAB BLOOD ORDERABLES Final Result [facility] [address] [place] [address] documented in this encounter Visit Diagnoses Diagnosis Renal stone Systemic lupus erythematosus with organ or system involvement, not otherwise specified (HCC) documented in this encounter Care Teams Area Coordinator Relationship Specialty Start Date End Date Alexy Camarena DO [address] [place] [address] PCP - General Internal Medicine 08/01/22 documented as of this encounter
--- OUTSIDE RECORDS SUMMARY | 2025-03-05 12:03 | XMS_ITS | Clinical Summary ---
Author Organization [facility] Address [address] [facility] [address] [place] [address] Phone Care Team Providers Care Microwave Remote Sensing Scientist Name Role Phone NicolAlexy padilla Primary Care Provider [phone] Allergies Active Allergy Reactions Criticality Noted Date [...] mouth at night if needed 4 Active Magnesium 400 MG tablet Take 400 mg by mouth 1 (one) time each day Active nortriptyline (PAMELOR) 50 MG capsule Take 50 mg by mouth if needed for sleep Active Active Problems Problem Noted Date Diagnosed [...] Encounters Date Type Department Care Team Description 03/02/2025 Orders Only [facility] [address] [id number] Lior Cabrera MD Renal stone; Systemic lupus erythematosus with organ or system involvement, not otherwise specified (HCC) 02/26/2025 9:00 AM EDT Office Visit [facility] [address] [address] Lior Cabrera MD Renal stone (Primary Dx) 02/05/2025 Orders Only [facility] [place] [id number] [address] Lior Cabrera MD 01/20/2025 Office Communication [facility] [address] [address] Annabelle Valverde from Last 3 Months Family [...] Sign Reading Time Taken Comments Blood Pressure 104/68 02/26/2025 8:54 AM EDT Pulse 104 02/26/2025 8:54 AM EDT Temperature - - Respiratory Rate - - Oxygen Saturation 97% 02/26/2025 8:54 AM EDT Inhaled Oxygen Concentration - - Weight 76.2 kg (168 lb) 02/26/2025 8:54 AM EDT Height 160 cm (5' 3 ) 07/30/2023 4:05 PM EDT Body Mass Index 29.76 07/30/2023 4:05 PM EDT Plan of Treatment Upcoming Encounters Date Type Department Care Team (Late st Contact Info) Description 08/20/2025 9:15 AM EDT Office Visit [facility] [address] [address] Lior Cabrera MD [address] [address] Health Maintenance Due Date Last Done Comments Breast Cancer Screening 1955 Pneumococcal Vaccine: 50+ Ye ars (1 of 2 - PCV) 1976 Colorectal Cancer Screening: Annual FOBT 2006 Colorectal [...] Cystatin C 1.03 0.72 - 1.16 mg/L [facility] eGFR by Cystatin C 68 >59 mL/min[facility]1.7 [facility] 02/06/2025 8:12 AM EDT 02/06/2025 Lior Cabrera MD LAB BLOOD ORDERABLES Final Result [facility] [address] [place] [address] * (ABNORMAL) Microscopic Examination (02/06/2025 8:12 AM EDT) WBC, Urine 11-30(A) 0 - 5 /hpf [facility] RBC, Urine None seen 0 - 2 /hpf [facility] Squamous Epithelial, Urine >10(A) 0 - 10 /hpf [facility] Casts None seen None seen /lpf [facility] Bacteria, Urine Many(A) None seen/Few [facility] 02/06/2025 8:12 AM EDT 02/06/2025 Lior Cabrera MD LAB MICROBIOLOGY - GE NERAL ORDERABLES Final Result [facility] [address] [place] [address] * Iron Panel (Fe, TIBC, TSAT) (02/06/2025 8:12 AM EDT) TIBC 381 250 - 450 ug/dL [facility] UIBC 311 118 - 369 ug/dL [facility] Iron 70 27 - 139 ug/dL [facility] Iron Saturation (TSat) 18 15 - 55 % [facility] 02/06/2025 8:12 AM EDT 02/06/2025 Lior Cabrera MD LAB BLOOD ORDERABLES Final Result Performing Organization Address [facility] Co de Phone Number [employer] [facility] [address] [place] [address] * Protein, Total, Random Urine w/Creatinine (Protein/Creat Ratio) (02/06/2025 8:12 AM EDT) Creatinine, Ur 252.9 Not Estab. mg/dL [facility] Protein, Ur 45.6 Not Estab. mg/dL [facility] Urine Protein/Creatin ine Ratio 180 0 - 200 mg/g creat [facility] 02/06/2025 8:12 AM EDT 02/06/2025 Lior Cabrera MD LAB URINE ORDERABLES Final Result Performing Organization Address [facility] de Phone Number [facility] [address] [place] [address] * Urine Albumin / Creatinine Ratio (02/06/2025 8:12 AM EDT) Albumin, Urine 49.6 Not Estab. ug/mL [facility] Albumin/Creatin ine Ratio 20 0 - 29 mg/g creat [facility] Comment: ? Normal: ?0 - ??29 ? Moderately increased: 30 - 300 ? Severely increased: ? >300 02/06/2025 8:12 AM EDT 02/06/2025 Lior Cabrera MD LAB URINE ORDERABLES Final Result Performing Organization Address City/[facility] Co de Phone Number [facility] [address] [place] [address] * Anti-DNA antibody, double-stranded (02/06/2025 8:12 AM EDT) DS DNA Ab <1 0 - 9 IU/mL [facility] Comment: ? Negative ?<5 ? Equivocal ??5 - 9 ? Positive ?>9 02/06/2025 8:12 AM EDT 02/06/2025 Lior Cabrera MD LAB BLOOD ORDERABLES Final Result Performing Organization Address [facility] de Phone Number [facility] [address] [place] [address] * (ABNORMAL) Vitamin D 25 Hydroxy (02/06/2025 8:12 AM EDT) Vitamin D, 25-OH, Total 25.3(L) 30.0 - 100.0 ng/mL [facility] Comment: Vitamin D deficiency has been defined by the [employer] and an Endocrine Society practice guideline as a level of serum 25-OH vitamin D less than 20 ng/mL (1,2). The Endocrine Society went on to further define vitamin D insufficiency as a level between 21 and 29 ng/mL (2). 1. IOM ([employer] of [employer]). 2010. Dietary reference ?? intakes for calcium and D. [place]: The ?? National Academies Press. 2. Maggie MF, Partha [place], eWro QUIROZ, et al. ?? Evaluation, treatment, and prevention of vitamin D ?? deficiency: an Endocrine Society clinical practice ?? guideline. JCEM. 2010; 96(7):1911-30. 02/06/2025 8:12 AM EDT 02/06/2025 us Lior Cabrera MD LAB BLOOD ORDERABLES Final Result [facility] [address] [place] [address] * (ABNORMAL) Urinalysis with microscopic (02/06/2025 8:12 AM EDT) Specific [place], Urine 1.029 1.005 - 1.030 [facility] pH Urine 5.5 5.0 - 7.5 [facility] Color, Urine Yellow Yellow [facility] Appearance Urine Cloudy(A) Clear [facility] WBC Esterase Urine 2+(A) Negative [facility] Protein, Ur 1+(A) Negative/Tra ce [facility] Glucose, Ur Negative Negative [facility] Ketones, Urine Trace(A) Negative [facility] [phone] Blood Urine Negative Negative [facility] Bilirubin Urine Negative Negative [facility] [phone] Urobilinogen Urine 0.2 0.2 - 1.0 mg/dL [facility] [phone] Nitrite, Urine Negative Negative [facility] [phone] Microscopic Examination See below: [facility] Comment:Microscopic was harriet cated and was performed. 02/06/2025 8:12 AM EDT 02/06/2025 Lior Cabrera MD LAB URINE ORDERABLES Final Result [facility] [address] [place] [address] * CBC and Differential (02/06/2025 8:12 AM EDT) WBC 6.0 3.4 - 10.8 x10E3/uL [facility] RBC 4.63 3.77 - 5.28 x10E6/uL [facility] Hemoglobin 13.8 11.1 - 15.9 g/dL [facility] Hematocrit 41.8 34.0 - 46.6 % [facility] MCV 90 79 - 97 fL [facility] MCH 29.8 26.6 - 33.0 pg [facility] MCHC 33.0 31.5 - 35.7 g/dL [facility] RDW 12.9 11.7 - 15.4 % [facility] Platelets 241 150 - 450 x10E3/uL [facility] Neutrophils Relative 54 Not Estab. % [facility] Lymphocytes Relative 36 Not Estab. % [facility] Monocytes 10 Not Estab. % [facility] Eosinophils Relative 0 Not Estab. % [facility] Basophils Relative 0 Not Estab. % [facility] Neutrophils Absolute 3.3 1.4 - 7.0 x10E3/uL [facility] Lymphocytes Absolute 2.2 0.7 - 3.1 x10E3/uL [facility] Monocytes Absolute 0.6 0.1 - 0.9 x10E3/uL [facility] Eosinophils Absolute 0.0 0.0 - 0.4 x10E3/uL [facility] Basophils Absolute 0.0 0.0 - 0.2 x10E3/uL [facility] Immature Granulocytes 0 Not Estab. % [facility] Immature Grans (Absolute) 0.0 0.0 - 0.1 x10E3/uL [facility] 02/06/2025 8:12 AM EDT 02/06/2025 Lior Cabrera MD LAB BLOOD ORDERABLES Final Result [facility] [address] [place] [address] * (ABNORMAL) C3 Complement (02/06/2025 8:12 AM EDT) C3 Complement 171(H) 82 - 167 mg/dL [facility] 02/06/2025 8:12 AM EDT 02/06/2025 Lior Cabrera MD LAB BLOOD ORDERABLES Final Result [facility] [address] [place] [address] * C4 Complement (02/06/2025 8:12 AM EDT) C4 Complement 37 12 - 38 mg/dL [facility] 02/06/2025 8:12 AM EDT 02/06/2025 us Lior Cabrera MD LAB BLOOD ORDERABLES Final Result [facility] [address] [place] [address] * Uric Acid (02/06/2025 8:12 AM EDT) Uric Acid 6.1 3.0 - 7.2 mg/dL [facility] Comment:Therapeutic target f or gout patients: <6.0 02/06/2025 8:12 AM EDT 02/06/2025 us Lior Cabrera MD LAB BLOOD ORDERABLES Final Result Performing Organization Address [facility]/ZIP Co de Phone Number [facility] [address] [place] [address] * Phosphorus (02/06/2025 8:12 AM EDT) Phosphorus 3.2 3.0 - 4.3 mg/dL [facility] 02/06/2025 8:12 AM EDT 02/06/2025 us Lior Cabrera MD LAB BLOOD ORDERABLES Final Result Performing Organization Address City/[facility]/ZIP Co de Phone Number [facility] [address] [place] [address] * PTH, Intact (02/06/2025 8:12 AM EDT) PTH 37 15 - 65 pg/mL [facility] 02/06/2025 8:12 AM EDT 02/06/2025 us Lior Cabrera MD LAB BLOOD ORDERABLES Final Result Performing Organization Address City/[facility]/ZIP Co de Phone Number [facility] [address] [place] [address] * Magnesium (02/06/2025 8:12 AM EDT) Magnesium 2.0 1.6 - 2.3 mg/dL [facility] 02/06/2025 8:12 AM EDT 02/06/2025 Lior Cabrera MD LAB BLOOD ORDERABLES Final Result Performing Organization Address [facility] Co de Phone Number [facility] [address] [place] [address] * (ABNORMAL) Hemoglobin A1c (02/06/2025 8:12 AM EDT) Hemoglobin A1C 6.2(H) 4.8 - 5.6 % [facility] Comment: ? Prediabetes: 5.7 - 6.4 ? Diabetes: >6.4 ? Glycemic control for adults with diabetes: <7.0 02/06/2025 8:12 AM EDT 02/06/2025 Lior Cabrera MD LAB BLOOD ORDERABLES Final Result Performing Organization Address City/[facility]/ZIP Co de Phone Number [facility] [address] [place] [address] * Ferritin (02/06/2025 8:12 AM EDT) Ferritin 137 15 - 150 ng/mL [facility] 02/06/2025 8:12 AM EDT 02/06/2025 us Lior Cabrera MD LAB BLOOD ORDERABLES Final Result [facility] [address] [place] [address] * (ABNORMAL) Basic Metabolic Panel (02/06/2025 8:12 AM EDT) Glucose 102(H) 70 - 99 mg/dL [facility] BUN 17 8 - 27 mg/dL [facility] Creatinine 0.85 0.57 - 1.00 mg/dL [facility] eGFR CKD-EPI CR 2020 75 >59 mL/min/1.7 3 [facility] BUN/Creatinine Ratio 20 12 - 28 [facility] Sodium 141 134 - 144 mmol/L [facility] Potassium 4.4 3.5 - 5.2 mmol/L [facility] Chloride 104 96 - 106 mmol/L [facility] Bicarbonate (CO2) 21 20 - 29 mmol/L [facility] Calcium 9.8 8.7 - 10.3 mg/dL [facility] 02/06/2025 8:12 AM EDT 02/06/2025 us Lior Cabrera MD LAB BLOOD ORDERABLES Final Result [facility] [address] [place] [address] * (ABNORMAL) Litholink Kidney Stone Urine Panel, 24 Hour (02/05/2025 3:00 AM EDT) Cystine, Ur CANCELED [facility] Comment: Test not performed. Previous test results on file. Result canceled by the ancillary. Urine Volume (Preservative) 1,350 500 - 4,000 mL/24 hr [facility] Calcium Oxalate 9.97 6.00 - 10.00 [facility] Calcium, 24H Urine 260(H) <200 mg/24 hr [facility] Oxalate, 24H Ur 34 20 - 40 mg/24 hr [facility] Citrate, 24H Ur 1,287 >550 mg/24 hr [facility] Calcium Phosphate Saturation 2.59(H) 0.50 - 2.00 [facility] pH, 24 Hr Urine 6.320(H) 5.800 - 6.200 [facility] Uric Acid Saturation 0.59 <1.00 [facility] Uric Acid, 24H Ur 771(H) <750 mg/24 hr [facility] Sodium, 24H Ur 236(H) 50 - 150 mmol/24 hr [facility] Potassium, 24H Ur 55 20 - 100 mmol/24 hr [facility] Magnesium, 24H Ur 43 30 - 120 mg/24 hr [facility] Phosphorus 24 Hour Urine 900 600 - 1,200 mg/24 hr [facility] Ammonia, 24 hr Urine 23 15 - 60 mmol/24 hr [facility] Chloride, 24H Ur 197 70 - 250 mmol/24 hr [facility] Sulfate, 24H Ur 42 20 - 80 meq/24 hr [facility] Urea Nitrogen, 24H Ur 9.34 6.00 - 14.00 g/24 hr [facility] Protein Catabolic Rate, (14) CANCELED g/kg/24 hr [facility] Comment: Test not performed A required component of the calculation is missing. ??As a result, this calculation cannot be performed. Result canceled by the ancillary. Creatinine in 24 hour Urine 1,445 Not Applic. mg/24 hr [facility] Creatinine/KG Body Weight CANCELED mg/24 hr/kg [facility] Comment: Test not performed A required component of the calculation is missing. ??As a result, this calculation cannot be performed. Result canceled by the ancillary. Calcium/KG Body Weight CANCELED mg/24 hr/kg [facility] Comment: Test not performed A required component of the calculation is missing. ??As a result, this calculation cannot be performed. Result canceled by the ancillary. Calcium/Creat.Ra sheila 180 51 - 262 mg/g creat [facility] Comment Note [facility] PDF . [facility] 02/05/2025 3:00 AM EDT 02/11/2025 Lior Cabrera MD LAB URINE ORDERABLES Edited Result - Final [facility] [address] [place] [phone] from Last 3 Months Insurance Medicaid [facility] Care Teams Microwave Remote Sensing Scientist Relationship Specialty Start Date End Date Alexy Camarena DO [address] [place] [address] PCP - General Internal Medicine 08/01/22
--- OUTSIDE RECORDS SUMMARY | 2025-03-05 12:03 | XMS_ITS | Clinical Summary ---
Author Organization [employer] [facility] it Address [address] [place] [address] Care Team Providers Care Hiv Nurse Name Role Phone Matty Jimenez MD Primary [...] Date Comments Lupus (systemic lupus erythe matosus) ([facility] V24, [facility] V28) DX:Lupus (systemic lupus erythematosus) ([facility]); COMMENT: right lung crystalized Herniated disc DX:Herniated dis c H/O colonoscopy 2013 DX:H/O colonosco py Colon polyps DX:Colon polyps Other specified personal his tory presenting hazards to health(V15.89) 2006 DX:Other specifie d personal history presenting hazards to health(V15.89); COMMENT: uterine Renal calculi 01/2016 DX:Renal calculi ; COMMENT: [facility], Dr. Ford Breast cancer ([facility] V24, [facility] V28) 2002 DX:Breast cancer ([facility]); COMM ENT: rt Dr. Eliza Quiroz Multiple lipomas DX:Multiple lip omas History of uterine cancer DX:His tory of uterine cancer Fibromyalgia DX:Fibromyalgia Asthma DX:Asthma Seizure disorder ([facility] V2 4, [facility] V28) DX:Seizure disorder ([facility]) Family History Medical History Relation Name Comments [...] Recently Relevant to Health Maintenance Care Teams Hiv Nurse Relationship Specialty Start Date End Date Matty Jimenez MD PCP - General Internal Medicine 11/30/14
[2025-03-05 12:11] LABS: Anion Gap 13 (12-20); Blood Urea Nitrogen 15 mg/dL (9-16); C Reactive Protein 0.69 mg/dL (< or = 0.50); Calcium 9.7 mg/dL (8.4-10.2); Carbon Dioxide 24 mmol/L (22-29); Chloride 107 mmol/L (96-108); Estimated Glomerular Filt Rate > 60; Glucose Random 119 mg/dL (60-115); Potassium 3.9 mmol/L (3.3-5.1); Sodium 140 mmol/L (135-145)
[2025-03-05 12:34] LABS: Erythrocyte Sedimentation Rate 13 MM/HR (0-20)
[2025-03-05 12:39] LABS: HBS Num1 0.89 mIU/mL (0-7.99); HBc Num1 0.06 S/CO (0.00-0.79); HBsAGNum1 0.45 S/CO (0.00-0.99); Hepatitis B Core Antibody Nonreactive (Nonreactive); Hepatitis B Surface Antigen Negative (Negative); ~HepC Num1 0.38 S/CO (0.00-0.79); ~Hepatitis B Surface Antibody NONREACTIVE (Nonreactive); ~Hepatitis C Antibody Nonreactive (Nonreactive)
[2025-03-08 21:53] LABS: SM/Ribonucleoprotein Ab <1.0 NEG AI (<1.0 NEG); Smith Protein <1.0 NEG AI (<1.0 NEG)
== END 2025-03-05 11:12 | disposition home or self-care (01) ==
LOC: HO.LAB 11:11
PROVIDERS: PCP Internal Medicine; Visit Provider Internal Medicine Rheumatology
DX: R07.9 Chest pain, unspecified (principal); R21 Rash and other nonspecific skin eruption
CPT/HCPCS: 36415; 80048; 85652; 86140; 86235; 86704; 86706; 86803; 87340

== ENCOUNTER 2025-04-12 07:57 | Outpatient (RCR) | payer MEDICARE, SELFPAY ==
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
== END 2025-06-01 07:21 | disposition home or self-care (01) ==
LOC: HO.PTS 07:57
PROVIDERS: Visit Provider Internal Medicine Rheumatology
DX: S76.319D Strain of muscle, fascia and tendon of the posterior muscle group at thigh level, unspecified thigh, subsequent encounter (principal); M17.0 Bilateral primary osteoarthritis of knee
CPT/HCPCS: 97110; 97116; 97162

== ENCOUNTER 2025-04-28 10:01 | Outpatient (AMB) | payer MEDICARE, SELFPAY ==
[2025-04-28 10:12] VITALS: BP 98/60; PULSE 96; O2SAT 98; BMI 30.8
--- NOTE | 2025-04-28 10:12 | MHC.OFFVIS ---
Vital Signs 04/28/25 10:12 Height 5 ft 3 in Weight 174 lb 2.643 oz BMI 30.8 BP 98/60 Blood Pressure Location Lt brachial Position Sitting Pulse 96 Pulse Source Pulse Oximeter Pulse Oximetry (%) 98 Oxygen Delivery Method Room Air Intake Visit Reasons: Asthma Videotape Operator Required: No Accompanied by: Self / Same As Patient Allergies aspirin Allergy (Intermediate, Verified 04/28/25 10:15) Rash and Hives omalizumab (From Xolair) Allergy (Intermediate, Verified 04/28/25 10:15) Angioedema Almonds,hazenuts,fresh fruits, Allergy (Severe, Uncoded 01/29/25 08:44) Hives/Rash Chlorhexidine Allergy (Severe, Uncoded 01/29/25 08:44) Rash and Hives Dye [facility] Blue 1 Allergy (Severe, Uncoded 01/29/25 08:44) Rash and Hives fresh fruits Allergy (Severe, Uncoded 01/29/25 08:44) Rash and Hives onions Allergy (Severe, Uncoded 01/29/25 08:44) Rash and Hives Chlora Prep Allergy (Intermediate, Uncoded 01/29/25 08:44) rash peanuts Allergy (Intermediate, Uncoded 01/29/25 08:44) Rash HPI Comments Details: The patient is a 69-year-old woman with a known history of asthma in addition to systemic lupus erythematous. Will or she continues to use her respiratory therapy regularly. Has not had any recent flares or need for prednisone. Seems like it lupus is under control. However, the patient is presenting now with left-sided pleuritic discomfort mainly in the upper part of her left lung. This started happening for the last day or 2. It seems to be getting worse. Moderate in severity. Not associated with any fevers or chills. She has noticed increased rash sometimes getting blotches of January under scan that are tender. She does have a prospecting observer and also follows closely with Nephrology regarding her kidneys. The last kidney function was normal. The patient has not had any recent x-rays or blood work. We did do a blood work evaluation to see if she has any active lupus and we didn't see any significance. We talked about Plaquenil also potential therapy however. In the meantime the patient continues having this discomfort. Her x-ray appear to be relatively clear was not helpful trying to explain the right-sided pleuritic discomfort. She may have a neuromuscular component. But at this time with history lupus we have to make sure she the doesn't have any evidence of any pneumonitis or pleuritis. She does have an allergic reaction to dye as we cannot use that at this time. Will requested non contrast CT scan of the chest. In the meantime will try Plaquenil and consider he given some prednisone. We did do the blood work to assess lupus activity and her complement levels were within normal and her double strand DNA was also undetectable. Therefore, does not appear to have any lupus activity. Her CT scan of the chest is also reassuring. She has areas of atelectasis but no other findings to suggest active connective tissue disease at this time. Her pleural lining appears to be well visualized without any significant thickening or inflammation or effusions. 07/05/2023 the patient is here for a pulmonary follow-up visit. Her respiratory status seems to be doing better on the Trelegy inhaler and also on the Fasenra injections. She has been having some chest discomfort her. Pleuritic in nature. She had been on Plaquenil before and did help her with her symptoms. Explained to her that this is not a medication that she can take regularly. I will prescribe for 1 month and afterwards if she needs additional or she feels that she wants to continue it she needs to talk to primary care or Rheumatology. The patient is also having some difficulty sleeping. She is using the melatonin. She is not using the trazodone. When she does sleep she does wake up tired. Her [place] score is elevated 10/24. She does have intermittent headaches. She does have snoring. Will request a sleep study at this time. 01/03/2024 the patient is here for pulmonary follow-up visit. Overall the patient has been doing well on the current respiratory regimen. She is responded well to the Trelegy inhaler and also the Fasenra injections. He has been getting the every 8 weeks. Denies any adverse effects from the medications. Her asthma has been significantly improved. Has not required any prednisone which is reassuring. In the meantime she has been struggling with her sleep. She is tried multiple medication including trazodone in the past without any significant improvement. She continues to have significant daytime drowsiness. The patient did undergo home sleep study which we personally viewed in the office. No evidence of any significant sleep apnea documented in the home sleep study. Will go ahead and try her on a small dose of zolpidem the hopes that she gets enough sleep. She knows to take the medication right at sleep time and not to plan any activities after taking the medication. The patient will monitor closely symptoms and hopefully she has improvement with smaller dose of the zolpidem. Otherwise patient is doing well. Will plan to follow-up in 4-6 months. 07/01/2024 the patient is here for a pulmonary follow-up visit. Overall the patient has been doing okay. She has been complaining of worsening dyspnea on exertion her. Ilnd-lt-uaiixjif severity. Specially when she goes up a flight of stairs. She does use a cane. She does have back issues. From an asthma standpoint the patient is doing very good on the biologic therapy, Fasenra. She also continues on Trelegy. She has not required any prednisone nor her rescue inhaler. And her respiratory exam is reassuring. She did have a chest x-ray which I reviewed demonstrating no acute disease. In addition to that she did have blood work back in December demonstrating no evidence of any anemia or anything else that can explain shortness of breath. On further questioning she does state having some chest pressure and pain at times. Although is transient. She does not have any chest discomfort at this time. Sometimes she does feel palpitations and increased heart rate. We did go for brief walking oximetry in the office in heart rate did increase to about 112 beats per minute with minimal activity. Oxygen was normal. Based on her ongoing symptoms will go ahead and refer her to Cardiology. To further address her symptoms and likely will need a stress test. She will not be able to do a treadmill since she does have a cane. From an allergy standpoint the patient is doing well on the current therapy will continue it at this time. From vaccine standpoint she is does not use any vaccines will hold off on those as well. Will follow-up in 6 months or sooner if she develops any worsening issues. 01/01/2025 the patient is here for a pulmonary follow-up visit. Overall she is doing well from a respiratory status. She has been having issues with rash. She has been noticing some hives throughout her body pleuritic in nature. She did follow-up with her creative engagement director. She continues on the Fasenra although the Fasenra has been very expensive for her and she is not sure she is going to be able to afford it. She is looking to changing her insurance or prescription programs. In the meantime with the hives will go ahead and recheck her IgE levels to see what her need for biologic is at this time. If her IgE levels elevated than may be a different type of biologic regimen will be more warranted for her. For now she will continue with the current respiratory therapy. She is also going to follow-up with her primary care doctor regarding the rash the rash seems to be better. One thing about the rash was that her asthma was more active when he was noticeable I do believe that this is more related to an allergic reaction then related to any connective tissue disease. She did have an elevated DALI for her demonstrating DNA is negative. Apparently she had been on Plaquenil in the past. She can discuss that further prospecting observer. 04/28/2025 the patient is here for pulmonary follow-up visit. From a respiratory status seems to be doing Trelegy. She has stopped it Fasenra because of insurance issues and seems to be doing okay without it. She then started developing a rash. She did see dermatology. Not clear what dermatology thought. She is concerned as her lupus that is active. Before we had checked her blood work and her DALI was indeed elevated. She will be following up with prospecting observer soon. She also complains of some chest discomfort question if this could be pleuritic in nature and she had been on Plaquenil in the past and seemed to have been tolerating it. Therefore I will give her a prescription she can try for a month and then follow-up with Rheumatology and see if this is reasonable. If it is not she can discontinue the medication. She did have a cardiology evaluation. And felt to be okay, although, she has not had a stress test yet. Will follow-up sometime in the fall and discuss any additional testing done. She also had a fall where she hurt her risk. She was supposed to get an x-ray. Otherwise the patient is without any other complaints. She will continue the current respiratory therapy as prescribed. [facility] Medical History Chest pain Tachycardia Type 2 diabetes mellitus Varicose veins of bilateral lower extremities with pain GERD (gastroesophageal reflux disease) HLD (hyperlipidemia) History of renal calculi Hepatic steatosis History of breast cancer Chronic restrictive lung disease Insomnia Back pain Moderate persistent asthma Post herpetic neuralgia Kidney stones Chronic allergic rhinitis Atelectasis Asthma Surgical History (Reviewed 02/18/25 @ 08:47 by Isabella Davenport [facility]) Hx of eye surgery History of colonoscopy (08/30/19) History of excision of mass (08/27/19) History of cholecystectomy (07/21/19) History of cystoscopy (2010) History of arthroplasty of knee (1993) History of hemorrhoidectomy (1983) History of 2 sections History of tonsillectomy and adenoidectomy (1965) History of hysterectomy for cancer Family History (Reviewed 02/18/25 @ 08:47 by Isabella Davenport [facility]) Father No problems noted. Mother Chest pain Sister History of ovarian cancer, Onset Age: 49 Afib Maternal Aunt History of breast cancer Maternal Aunt History of breast cancer Maternal Aunt History of breast cancer Maternal Aunt History of breast cancer Social History (Reviewed 04/28/25 @ 10:21 by Rosetta Geiger [facility]) Alcohol intake: never Patient Tobacco Use Status: Never used Tobacco Review of Systems Const Denies weakness ENT Denies dizziness Card Reports chest pain, Denies chest pain with activity, Denies syncope, Denies rapid heart rate, Denies pedal edema, Denies edema, Denies leg edema, Denies lightheadedness, Denies palpitations, Denies dyspnea, Denies dyspnea on exertion and Denies orthopnea Resp Denies cough, Denies dyspnea and Denies dyspnea on exertion GI Denies hematochezia and Denies change in stool character Musc Reports as per HPI, Denies abnormal gait, Reports myalgias, Reports arthralgias, Reports joint swelling, Reports limited range of motion, Denies muscle cramps, Denies muscle weakness, Denies numbness, Denies radiating pain into limb and Denies tingling Neuro Denies abnormal gait, Denies dizziness, Denies syncope, Denies numbness, Denies tingling and Denies weakness Endo Denies palpitations Physical Exam Vital Signs: Last Vital Signs Pulse 96 04/28/25 10:12 BP 98/60 04/28/25 10:12 Pulse Ox 98 04/28/25 10:12 Oxygen Delivery Method Room Air 04/28/25 10:12 BMI result Body Mass Index 30.8 Const General: alert Neck Neck: Yes normal visual inspection, Yes full ROM and Yes no lymphadenopathy Chest Chest palpation & inspection: normal inspection of the chest Resp Effort & Inspection: normal respiratory effort Auscultation: clear to auscultation bilaterally Cardio Rate: regular rate Rhythm: regular rhythm Heart sounds: S1 normal heart sound present and S2 normal heart sound present GI Palpation (GI): Soft to palpation and nontender Auscultation: normal bowel sounds Skin General skin exam: rashes and/or lesions noted Assessment & Plan Assessment & Plan (1) Asthma: Code(s): J45.909 - Unspecified asthma, uncomplicated Category: Medical Qualifiers: Asthma complication type: uncomplicated Asthma persistence: persistent Asthma severity: severe Qualified Code(s): J45.50 - Severe persistent asthma, uncomplicated (2) Chronic allergic rhinitis: Code(s): J30.9 - Allergic rhinitis, unspecified Category: Medical (3) Atelectasis: Code(s): J98.11 - Atelectasis Category: Medical (4) Insomnia: Code(s): G47.00 - Insomnia, unspecified Category: Medical Qualifiers: Insomnia type: primary Qualified Code(s): F51.01 - Primary insomnia (5) Dyspnea: Code(s): R06.00 - Dyspnea, unspecified Category: Medical Qualifiers: Dyspnea type: dyspnea on exertion Qualified Code(s): R06.09 - Other forms of dyspnea (6) SLE (systemic lupus erythematosus): Code(s): M32.9 - Systemic lupus erythematosus, unspecified Category: Medical (7) Rash: Code(s): R21 - Rash and other nonspecific skin eruption Category: Medical Plan continue Trelegy continue Melatonin ZOË as needed continue singular continue Claritin holding Fasenra Q8 weeks Trial of plaquenil F/U 6-8 months Orders: Orders XR wrist LT min 3V Today W19.XXXA - Unspecified fall, initial encounter Medications: New hydroxychloroquine (Plaquenil) 200 mg PO DAILY 30 tabs 2RF 30 days Coding Level of Care Code Est Pt Level 4 (47262) Complex EM visit Add On G2211 Diagnoses Severe persistent asthma without complication J45.50 Asthma complication type: uncomplicated Asthma persistence: persistent Asthma severity: severe Chronic allergic rhinitis J30.9 Atelectasis J98.11 Primary insomnia F51.01 Insomnia type: primary Dyspnea on exertion R06.09 Dyspnea type: dyspnea on exertion SLE (systemic lupus erythematosus) M32.9 Rash R21 Time Spent (min) 16
--- OUTSIDE RECORDS SUMMARY | 2025-04-28 11:14 | XMS_ITS | Clinical Summary ---
Author Organization [employer] [facility] it Address [address] [place] [address] Care Team Providers Care Digital Solutions Architect Name Role Phone Matty Jimenez MD Primary [...] Date Comments Lupus (systemic lupus erythe matosus) ([facility] V24, [facility] V28) DX:Lupus (systemic lupus erythematosus) ([facility]); COMMENT: right lung crystalized Herniated disc DX:Herniated dis c H/O colonoscopy 2013 DX:H/O colonosco py Colon polyps DX:Colon polyps Other specified personal his tory presenting hazards to health(V15.89) 2006 DX:Other specifie d personal history presenting hazards to health(V15.89); COMMENT: uterine Renal calculi 01/2016 DX:Renal calculi ; COMMENT: [facility], Dr. Ford Breast cancer ([facility] V24, [facility] V28) 2002 DX:Breast cancer ([facility]); COMM ENT: rt Dr. Eliza Quiroz Multiple lipomas DX:Multiple lip omas History of uterine cancer DX:His tory of uterine cancer Fibromyalgia DX:Fibromyalgia Asthma DX:Asthma Seizure disorder ([facility] V2 4, [facility] V28) DX:Seizure disorder ([facility]) Family History Medical History Relation Name Comments [...] reviewed with CAD and compared to previous. The breasts are composed of fatty and fibroglandular tissue. No suspicious mass, architectural distortion or suspicious calcifications [...] Breast cancer risk not assessed us Matty S Jimenez MD IMG XR PROCEDURES Final Result from Last 3 Months or Most Recently Relevant to Health Maintenance Care Teams Digital Solutions Architect Relationship Specialty Start Date End Date Matty Jimenez MD PCP - General Internal Medicine 11/30/14
== END 2025-04-28 10:38 | disposition home or self-care (01) ==
LOC: HO.HPS 10:02
PROVIDERS: PCP Internal Medicine; Visit Provider Hospitalist
DX: J45.50 Severe persistent asthma, uncomplicated (principal); J30.9 Allergic rhinitis, unspecified; J98.11 Atelectasis; F51.01 Primary insomnia; R06.09 Other forms of dyspnea; M32.9 Systemic lupus erythematosus, unspecified; R21 Rash and other nonspecific skin eruption
CPT/HCPCS: 99214; G2211

== ENCOUNTER 2025-04-28 10:41 | Outpatient (REF) | payer MEDICARE, SELFPAY ==
--- NOTE | ~2025-04-28 | XR_ITS ---
EXAMINATION: XR WRIST, LEFT CLINICAL INFORMATION: W19.XXXA - Unspecified fall, initial encounter COMPARISON: None available. TECHNIQUE: PA, lateral, and oblique views of the left wrist. FINDINGS: Sclerosis and marginal osteophytes are present at the first carpal metacarpal joint. There is a sclerotic calcified density in space between distal ulna and the proximal carpal row. There is a second corticated osseous density that projects in the region of the lunotriquetral joint. There is no joint diastases. No abnormalities are evident. XR/XR wrist LT min 3V IMPRESSION: 2 ossifications are evident in the ulnar side of the wrist between ulna and the proximal carpal row. These could represent intra-articular bodies and they are likely chronic. First [facility] joint osteoarthritis. Electronically signed by: Connor Weiner MD 04/28/2025 11:25 AM EDT
== END 2025-04-28 10:42 | disposition home or self-care (01) ==
LOC: HO.XRAY 10:41
PROVIDERS: PCP Internal Medicine; Visit Provider Hospitalist
DX: J45.50 Severe persistent asthma, uncomplicated (principal); J30.9 Allergic rhinitis, unspecified; J98.11 Atelectasis; F51.01 Primary insomnia; R06.09 Other forms of dyspnea; M32.9 Systemic lupus erythematosus, unspecified; R21 Rash and other nonspecific skin eruption; M25.532 Pain in left wrist
CPT/HCPCS: 73110; 99212

== ENCOUNTER → 2025-04-28 10:51 | Outpatient (BNV) | payer MEDICARE, SELFPAY | PROVIDERS: PCP Internal Medicine; Visit Provider Radiology Diagnostic Radiology | DX: M61.54 Other ossification of muscle, hand (principal) | CPT/HCPCS: 73110 ==

== ENCOUNTER 2025-05-25 10:03 | Outpatient (AMB) | payer MEDICARE, SELFPAY ==
--- OUTSIDE RECORDS SUMMARY | 2025-05-20 04:30 | XMS_ITS | Continuity of Care Document ---
Author Organization [facility] Address [address] [place] [address] [address] [place] [address] Phone Care Team Providers Care Studio Operations Manager Name Role Phone Desmond BARILLAS, ROMIE RIVAS Robert Unavailable U navailable Procedures Procedure Date Office/Oupt E&M New Pt 45 Mins- CT & [place] Duplex Scan-extrem Veins; Comp- CT & [place] Advance Directives Directive Yes / No Effective Date File Name Other Directive No 05/20/2025 N/A WARNING:The information contained in this section is historical and is provided for information only and does not constitute a legal document or any assurance that the information is still accurate. Please verify the information with the kent of the legal document before using it for clinical purposes. Encounters Encounter Description Practice Location Reason(s) For Visit Diagnoses Date Provider Providers Copied on Encounter Office/Oupt E&M New Pt 45 Mins- CT & [place] [facility], [address] [place] [address] [address], [id number], [place] tel:[phone] [place] Varicose veins of bilateral lower extremities with other complicationsRe stless legs syndromeCramp and spasmLocalized edema 5 Desmond BARILLAS, EVELYN, ROMIE Bruner. [address], [address], [place], [place], [id number] , [place]. tel:[phone] [facility], [address] [place] [address] [address], [id number], [place] [phone] [place] Chronic venous hypertension (idiopathic) with other complications of bilateral lower extremity Desmond BARILLAS RVT, ROMIE Bruner. [address], [address], [place], [place], [id number] , . tel:[phone] Referring Provider: Franc Logan MD, RVT, ROMIE, [address] [address], [place], [address] . tel:[phone] Family History Family Member Type Diagnosis Age At Onset No Information Payers Payer name Insurance type Covered republican ID Riley schafer(s) [facility] Medicare Advantage [id number] Social History Type Description Quantity Date Captured Comments Alcohol Use Details Unknown Caffeine Use Details Unknown Tobacco Use Status Current non-smoker Smoking Status Never Smoker Non-Smoking Tobacco Use Details : No Details Available : No Details Available Sex Female Vital Signs Date / Time: Height Weight BMI Pulse Rate Blood Pressure Temperature Respiratory Rate Body Surface Area Head Circumference Head Circ. Percentile Wt./Antwon. Percentile BMI percentile Pulse Ox Inhaled Ox 74.390 kg (164.00 lbs) 29.0 9 kg/m eter (2) 130/78 mm[Hg] Chief Complaint And Reason For Visit No Information Reason For Referral Reason For Referral No Information Plan Of Treatment Date Type Action Status Goal Diet education completed Referral Ordered: Weight management: Referral to physician timeframe: 3 Months (related to Body mass index (BMI) 29.0-29.9, adult) ordered Appointment Evie Shahid BOOKED Appointment Evie Shahid BOOKED Appointment Evie Shahid BOOKED Appointment Evie Shahid BOOKED Appointment Evie Shahid BOOKED Appointment Evie Shahid BOOKED Appointment Evie Shahid BOOKED Appointment Evie Shahid BOOKED History Of Present Illness Encounter Date Complaint History Of Prese nt Illness No Information Functional Status Date Functional Assessmen t No Information Instructions Date Instruction Additional Infor blanca Diet education Related to Body mass index (BMI) 29.0-29.9, adult Giving Encouragement to exercise Related to Body mass index (BMI) 29.0-29.9, adult Lifestyle education Related to B bari mass index (BMI) 29.0-29.9, adult Patient education booklet given Related to Varicose veins of bilateral lower extremities with other complications Pre and post instruc tions reviewed and provided Related to Varicose veins of bilateral lower extremities with other complications Assessments Type Assessment Date No Information Patient Care Teams Name Effective Dates (start - stop) Status Members No Information
[2025-05-25 10:07] VITALS: BP 110/80; PULSE 91; O2SAT 96; BMI 29.3
--- NOTE | 2025-05-25 10:07 | MHC.OFFVIS ---
Vital Signs 05/25/25 10:07 Height 5 ft 3 in Weight 165 lb 6 oz BMI 29.3 BP 110/80 Blood Pressure Location Rt brachial Position Sitting Pulse 91 Pulse Source Pulse Oximeter Pulse Oximetry (%) 96 Oxygen Delivery Method Room Air Intake Visit Reasons: 3 months Intake Note: Patient is here for left knee pain and injection. Allergies aspirin Allergy (Intermediate, Verified 05/25/25 10:08) Rash and Hives omalizumab (From Xolair) Allergy (Intermediate, Verified 05/25/25 10:08) Angioedema Almonds,hazenuts,fresh fruits, Allergy (Severe, Uncoded 01/29/25 08:44) Hives/Rash Chlorhexidine Allergy (Severe, Uncoded 01/29/25 08:44) Rash and Hives Dye PENITENTIARY Blue 1 Allergy (Severe, Uncoded 01/29/25 08:44) Rash and Hives fresh fruits Allergy (Severe, Uncoded 01/29/25 08:44) Rash and Hives onions Allergy (Severe, Uncoded 01/29/25 08:44) Rash and Hives Chlora Prep Allergy (Intermediate, Uncoded 01/29/25 08:44) rash peanuts Allergy (Intermediate, Uncoded 01/29/25 08:44) Rash HPI HPI 3 months: Details: She fell down the stairs and hurt her left wrist last month. She wears cock-up wrist brace on left wrist. She applies heat to her wrists. She continues to have left wrist pain. She continues to have rashes on her extremities and her face that last 1-2 days. PCP started HCQ 04/28/2025 for concern of SLE flare. She saw dermatology ([facility]) who told her to increase loratadine to 4 times a day. Whenever reviewed the photos of her rashes in April and May they appear as classic hives. Since being on hydroxychloroquine she reports that hives are less frequent but they are still persistent. She did not increase loratadine dose. Dr. Garcia is patient's benefit director. She was unable to progress with physical therapy and improving her right knee/hamstring strain pain due to uncontrolled pain. She is currently planning surgery to repair varicose veins in June, which surround her right knee. [facility] Medical History Chest pain Tachycardia Type 2 diabetes mellitus Varicose veins of bilateral lower extremities with pain GERD (gastroesophageal reflux disease) HLD (hyperlipidemia) History of renal calculi Hepatic steatosis History of breast cancer Chronic restrictive lung disease Insomnia Back pain Moderate persistent asthma Post herpetic neuralgia Kidney stones Chronic allergic rhinitis Atelectasis Asthma Surgical History (Reviewed 05/25/25 @ 10:08 by Isabella Davenport [facility]) Hx of eye surgery History of colonoscopy (08/30/19) History of excision of mass (08/27/19) History of cholecystectomy (07/21/19) History of cystoscopy (2010) History of arthroplasty of knee (1993) History of hemorrhoidectomy (1983) History of 2 sections History of tonsillectomy and adenoidectomy (1965) History of hysterectomy for cancer Family History (Reviewed 05/25/25 @ 10:08 by Isabella Davenport [facility]) Father No problems noted. Mother Chest pain Sister History of ovarian cancer, Onset Age: 49 Afib Maternal Aunt History of breast cancer Maternal Aunt History of breast cancer Maternal Aunt History of breast cancer Maternal Aunt History of breast cancer Social History (Reviewed 05/25/25 @ 10:08 by Isabella Davenport [facility]) Alcohol intake: never Patient Tobacco Use Status: Never used Tobacco Physical Exam Vital Signs: Last Vital Signs Pulse 91 05/25/25 10:07 BP 110/80 05/25/25 10:07 Pulse Ox 96 05/25/25 10:07 Oxygen Delivery Method Room Air 05/25/25 10:07 BMI result Body Mass Index 29.3 Const Other: General: Comfortable Skin: Slight malar erythema. No lesions on her extremities. MSK: She has brace on left wrist. Tender to palpate lateral hamstring muscle extending to the tendon insertion site. She also has left knee joint line tenderness without effusion palpated. Knee flexion 45 degrees with pain. Results Reviewed Results Reviewed: Date of Service: 04/28/25 Procedure(s): XR wrist LT min 3V Accession Number(s): [id number] cc: Alexy Camarena DO; Devon Lebron MD~ EXAMINATION: XR WRIST, LEFT CLINICAL INFORMATION: W19.XXXA - Unspecified fall, initial encounter COMPARISON: None available. TECHNIQUE: PA, lateral, and oblique views of the left wrist. FINDINGS: Sclerosis and marginal osteophytes are present at the first carpal metacarpal joint. There is a sclerotic calcified density in space between distal ulna and the proximal carpal row. There is a second corticated osseous density that projects in the region of the lunotriquetral joint. There is no joint diastases. No abnormalities are evident. XR/XR wrist LT min 3V IMPRESSION: 2 ossifications are evident in the ulnar side of the wrist between ulna and the proximal carpal row. These could represent intra-articular bodies and they are likely chronic. First CMC joint osteoarthritis. Assessment & Plan Assessment & Plan (1) Rash: Comment: Chronic. From reviewing patient's photos of her rashes in the month of April and May, she has classic hives. The hives are lasting 1-2 days. I recommend that she follow Dermatology recommendations to increase loratadine to 4 times a day. Cutaneous lupus rashes are typically chronic. At this time her current workup is not suggestive of systemic lupus disease activity. Workup has revealed low titer DALI 1:160, neg Sm, PIE CRUST MIXER, SSA/SSB, complements, ESR, without cytopenias or kidney involvement. She has mild elevation in CRP, which is not normally elevated with lupus disease activity. Code(s): R21 - Rash and other nonspecific skin eruption Category: Medical Plan: I am repeating labs for SLE disease activity Discontinue hydroxychloroquine Increase loratadine q.i.d. for treatment of hives. If symptoms of hives are not improving after 2 weeks, I recommend that she communicate with Dermatology and/or benefit director for further recommendations to optimize treatment for hives management. If she continues to have skin lesions after optimization of antihistamine regimen, I am recommending that she have skin biopsy to aid diagnosis and further management. Return to clinic in 3 months (2) Hamstring strain: Comment: Bilateral. Failed physical therapy, Tylenol, diclofenac gel. Contraindication to oral NSAIDs due to aspirin allergy. We discussed conservative management. Code(s): S76.319A - Strain of muscle, fascia and tendon of the posterior muscle group at thigh level, unspecified thigh, initial encounter Category: Medical Qualifiers: Encounter type: initial encounter Laterality: unspecified laterality Qualified Code(s): S76.319A - Strain of muscle, fascia and tendon of the posterior muscle group at thigh level, unspecified thigh, initial encounter Plan: I recommend MRI for further evaluation to rule out hamstring tendon tear but she is unable to afford co-pay at this time Continue to wear knee hinged brace She has having surgery to repair varicose veins surrounding her right knee in June. I will re-evaluate her symptoms after she recovers from surgery. Return to clinic in 3 months (3) Osteoarthritis of CMC joint of thumb: Comment: Pain is controlled with last cortisone injection Code(s): M18.9 - Osteoarthritis of first carpometacarpal joint, unspecified Category: Medical Qualifiers: Laterality: left Osteoarthritis type: primary Qualified Code(s): M18.12 - Unilateral primary osteoarthritis of first carpometacarpal joint, left hand Plan: Continue to monitor clinically (4) Left wrist pain: Comment: She had a fall April 2025. X-ray personally reviewed with patient after fall, which reveals left CMC osteoarthritis. I could not locate the 2 ossifications mentioned on the x-ray report localized to the ulnar side of the wrist when I personally reviewed x-ray with patient. Code(s): M25.532 - Pain in left wrist Category: Medical Plan: Continue bracing I recommended OT due to persistent pain. At this time she can not afford co-pay. Continue apply heat to wrists Return to clinic in 3 months Orders: Orders Aspartate Amino Transferase Today M32.9 - Systemic lupus erythematosus, unspecified Creatinine Today M32.9 - Systemic lupus erythematosus, unspecified Protein Creatinine Ratio, Ur Today M32.9 - Systemic lupus erythematosus, unspecified Complement C3 Today M32.9 - Systemic lupus erythematosus, unspecified Complete Blood Count Man Dif Today M32.9 - Systemic lupus erythematosus, unspecified Alanine Aminotransferase Today M32.9 - Systemic lupus erythematosus, unspecified C Reactive Protein Today M32.9 - Systemic lupus erythematosus, unspecified Erythrocyte Sedimentation Rate Today M32.9 - Systemic lupus erythematosus, unspecified UA w Microscopic Today M32.9 - Systemic lupus erythematosus, unspecified Complement C4 Today M32.9 - Systemic lupus erythematosus, unspecified Anti DNA DS Antibody Today M32.9 - Systemic lupus erythematosus, unspecified Coding Level of Care Code Est Pt Level 4 (83161) Complex EM visit Add On G2211 Diagnoses Rash R21 Hamstring strain, unspecified laterality, initial encounter S76.319A Encounter type: initial encounter Laterality: unspecified laterality Primary osteoarthritis of first carpometacarpal joint of left hand M18.12 Laterality: left Osteoarthritis type: primary Left wrist pain M25.532
--- OUTSIDE RECORDS SUMMARY | 2025-05-25 10:58 | XMS_ITS | Clinical Summary ---
Author Organization [facility] it Address [address] [place] [address] Care Team Providers Care Lot Boss Name Role Phone Matty Jimenez MD Primary [...] Date Comments Lupus (systemic lupus erythe matosus) ([facility] V24, [facility] V28) DX:Lupus (systemic lupus erythematosus) ([facility]); COMMENT: right lung crystalized Herniated disc DX:Herniated dis c H/O colonoscopy 2013 DX:H/O colonosco py Colon polyps DX:Colon polyps Other specified personal his tory presenting hazards to health(V15.89) 2006 DX:Other specifie d personal history presenting hazards to health(V15.89); COMMENT: uterine Renal calculi 01/2016 DX:Renal calculi ; COMMENT: [facility], Dr. Ford Breast cancer ([facility] V24, [facility] V28) 2002 DX:Breast cancer (FORMERLY [...] Falls Risk Assessment 2022 Influenza Vaccine (#1) 2025 HIB Vaccines Aged Out No longer [...] Recently Relevant to Health Maintenance Care Teams Lot Boss Relationship Specialty Start Date End Date Matty Jimenez MD PCP - General Internal Medicine 11/30/14
--- OUTSIDE RECORDS SUMMARY | 2025-05-25 10:59 | XMS_ITS | Clinical Summary ---
Author Organization [facility] Address [address] [facility] [address] [place] [address] Phone Care Team Providers Care Data Analysis Assistant Name Role Phone NicolAlexy padilla Primary Care Provider [phone] Allergies Active Allergy Reactions Criticality Noted Date [...] Orders Only [facility] [address] [address] Lior Cabrera MD Renal stone; Systemic lupus erythematosus with organ or system involvement, not otherwise specified (HCC) 02/26/2025 9:00 AM EDT Office Visit [facility] [address] [address] Lior Cabrera MD Renal stone (Primary Dx) from Last 3 Months Family History Medical [...] Office Visit [facility] [address] [facility] [address] [place] [address] Lior Cabrera MD [address] [address] [place] [address] Health Maintenance Due Date Last Done Comments Breast Cancer Screening 1957 Pneumococcal Vaccine: 50+ Ye ars (1 of 2 - PCV) 1976 Colorectal Cancer Screening: Annual FOBT 2006 Colorectal Cancer Screening: Colonoscopy 2006 Colorectal Cancer Screening: Sigmoidoscopy 2006 Influenza Vaccine (#1) 2025 Hepatitis B Vaccine Aged Out No longe r eligible based on patient's age to complete this topic Insurance [place] [facility] Care Teams Data Analysis Assistant Relationship Specialty Start Date End Date Alexy Camarena DO [address] [place] [id number] PCP - General Internal Medicine 08/01/22
== END 2025-05-25 11:28 | disposition home or self-care (01) ==
LOC: HO.RHES 10:03
PROVIDERS: PCP Internal Medicine; Visit Provider Internal Medicine Rheumatology
DX: R21 Rash and other nonspecific skin eruption (principal); S76.319A Strain of muscle, fascia and tendon of the posterior muscle group at thigh level, unspecified thigh, initial encounter; M18.12 Unilateral primary osteoarthritis of first carpometacarpal joint, left hand; M25.532 Pain in left wrist
CPT/HCPCS: 99214; G2211

== ENCOUNTER → 2025-05-25 10:03 | Outpatient (BNVA) | payer MEDICARE, SELFPAY | PROVIDERS: PCP Internal Medicine; Visit Provider Internal Medicine Rheumatology | DX: R21 Rash and other nonspecific skin eruption (principal); M18.9 Osteoarthritis of first carpometacarpal joint, unspecified; M25.532 Pain in left wrist; S76.311A Strain of muscle, fascia and tendon of the posterior muscle group at thigh level, right thigh, initial encounter | CPT/HCPCS: 99212 ==

== ENCOUNTER 2025-06-16 07:50 | Outpatient (AMB) | payer MEDICARE, SELFPAY ==
[2025-06-16 07:50] VITALS: BP 110/76; PULSE 82; O2SAT 96; BMI 30.1
--- NOTE | 2025-06-16 07:50 | MHC.OFFVIS ---
Vital Signs 06/16/25 07:50 Height 5 ft 3 in Weight 170 lb BMI 30.1 BP 110/76 Blood Pressure Location Rt brachial Position Sitting Pulse 82 Pulse Source Pulse Oximeter Pulse Oximetry (%) 96 Oxygen Delivery Method Room Air Intake Visit Reasons: 6 mnts f/u Intake Note: Pt presents to the office today for a 6 month follow up for migraines. Labs/PT in chart. Allergies aspirin Allergy (Intermediate, Verified 06/16/25 07:51) Rash and Hives omalizumab (From Xolair) Allergy (Intermediate, Verified 06/16/25 07:51) Angioedema Almonds,hazenuts,fresh fruits, Allergy (Severe, Uncoded 06/16/25 07:51) Hives/Rash Chlorhexidine Allergy (Severe, Uncoded 06/16/25 07:51) Rash and Hives Dye [facility] Blue 1 Allergy (Severe, Uncoded 06/16/25 07:51) Rash and Hives fresh fruits Allergy (Severe, Uncoded 06/16/25 07:51) Rash and Hives onions Allergy (Severe, Uncoded 06/16/25 07:51) Rash and Hives Chlora Prep Allergy (Intermediate, Uncoded 06/16/25 07:51) rash peanuts Allergy (Intermediate, Uncoded 06/16/25 07:51) Rash Medication List - Last Reconciled 06/16/25 by CHICO Cihno acetaminophen (Tylenol Extra Strength) 500 mg PO Q6H PRN albuterol sulfate 90 mcg/actuation (ProAir HFA) 1 inh inhalation QID albuterol sulfate 2.5 mg (3 mL) inhalation Q4-6H PRN benralizumab (Fasenra) mg subcut benzonatate 200 mg PO TID PRN budesonide-formoterol 160-4.5 mcg/actuation (Symbicort) 2 puffs inhalation BID 30 days desloratadine (Clarinex) 5 mg PO DAILY diclofenac sodium 1% 4 grams topical QID epinephrine (EpiPen 2-Teofilo) 0.3 mg (0.3 mL) IM Q10M PRN 90 days famotidine 20 mg PO BID mgzqpxmcivj-opvdlgkmt-ojdemwvm 200-62.5-25 mcg (Trelegy Ellipta) 1 inh inhalation DAILY 90 days galcanezumab-gnlm (Emgality Pen) 120 mg subcut ONCE 30 days galcanezumab-gnlm (Emgality Pen) 240 mg (2 mL) subcut ONCE 30 days hydrochlorothiazide 12.5 mg PO DAILY hydroxychloroquine (Plaquenil) 200 mg PO DAILY 30 days loratadine 10 mg PO QID magnesium oxide 400 mg PO BID montelukast 10 mg PO DAILY 90 days nebulizers As directed nortriptyline 50 mg PO BEDTIME 90 days omeprazole 40 mg PO DAILY 30 days ondansetron 4 mg PO Q6H PRN 30 days potassium citrate ER (Urocit-K 10) 10 mEq PO TID rosuvastatin 0 mg PO sumatriptan succinate 50 mg PO Q2-4H PRN 30 days tamsulosin 0.4 mg PO BEDTIME ubrogepant (Ubrelvy) 50 - 100 mg (0.5 - 1 x 100 mg) PO ONCE PRN 30 days umeclidinium 62.5 mcg/actuation (Incruse Ellipta) 1 inh inhalation DAILY 30 days vitamin Y36-dzibt acid 2,500-400 mcg tabs PO vitamin K2 45 mcg PO DAILY HPI Comments Details: 69-yr-old female presents for f/u visit of migraine. Since the last visit, pt has had f/u w/ pulmonology, rheumatology. She was referred to dermatology, who felt that patient's facial rash was actually an allergic reaction causing hives of unknown allergen/trigger. Pt has f/u w/ Dr Garcia in Jul. She notes she had a recent allergic reaction causing anaphylaxis symptoms, which was triggered by consuming bananas/strawberry, that she did not realize was in her [place]. Rheumatology is planning on doing further work-up to [facility] for SLE. Pt reports she has a couple of milder headaches per month, and a severe migraine attack 2 x's per month, lasting a several hours. Pt reports Emgality and Nortriptyline have been effective, however she has not had the emgality for a few months- as she changed her insurance. . Ubrelvy helps, and is now using it as her first treatment. She is using Zolpidem just as needed for sleep. Baseline headache characteristics: Aura: May see stars during the headache Severe pressure followed by stabbing pain in midfrontal region, may travel through the right side to the right neck. a/w Photophobia, phonophobia, allodynia, N/V, activity intolerance, watery eyes. Worsening BUE hands/fingers- tingling, PFSH Medical History Chest pain Tachycardia Type 2 diabetes mellitus Varicose veins of bilateral lower extremities with pain GERD (gastroesophageal reflux disease) HLD (hyperlipidemia) History of renal calculi Hepatic steatosis History of breast cancer Chronic restrictive lung disease Insomnia Back pain Moderate persistent asthma Post herpetic neuralgia Kidney stones Chronic allergic rhinitis Atelectasis Asthma Surgical History Hx of eye surgery History of colonoscopy (08/30/19) History of excision of mass (08/27/19) History of cholecystectomy (07/21/19) History of cystoscopy (2010) History of arthroplasty of knee (1993) History of hemorrhoidectomy (1983) History of 2 sections History of tonsillectomy and adenoidectomy (1965) History of hysterectomy for cancer Family History Father No problems noted. Mother Chest pain Sister History of ovarian cancer, Onset Age: 49 Afib Maternal Aunt History of breast cancer Maternal Aunt History of breast cancer Maternal Aunt History of breast cancer Maternal Aunt History of breast cancer Social History Alcohol intake: never Patient Tobacco Use Status: Never used Tobacco Physical Exam Vital Signs: Last Vital Signs Pulse 82 06/16/25 07:50 BP 110/76 06/16/25 07:50 Pulse Ox 96 06/16/25 07:50 Oxygen Delivery Method Room Air 06/16/25 07:50 BMI result Body Mass Index 30.1 Const General: cooperative and no acute distress Orientation/consciousness: patient oriented x3 Resp Effort & Inspection: normal respiratory effort and able to speak in complete sentences Neuro Other: Gait- antalgic gait w/ left knee brace and cane. General: patient oriented x3 Cranial nerves: Yes CN's II-XII intact bilaterally Cognition (Neuro): normal cognition Psych Appearance: grossly normal Mental Status: mental status grossly normal Speech and movement: Normal speech and movement present Affect: normal affect Attitude: cooperative Assessment & Plan Assessment & Plan (1) Migraine with aura: Code(s): G43.109 - Migraine with aura, not intractable, without status migrainosus Category: Medical Qualifiers: Intractability: not intractable Status migrainosus presence: without status migrainosus Qualified Code(s): G43.109 - Migraine with aura, not intractable, without status migrainosus (2) Multiple food allergies: Code(s): Z91.018 - Allergy to other foods Category: Medical Plan Previous work-up: Brain MRI w/wo- Chronic microangiopathy and Left sphenoid sinusitis. Findings not likely to have caused paresthesias. BUE EMG/NCS- results were normal. General health: Patient advised to always inform restaurant staff of her food allergies prior to ordering food, as not all ingredients we will be obvious or listed on in the menu. Patient states she does carry her EpiPen with her at all times. Follow-up with java lead, journeyman machinist, intensivist and copy preparer as scheduled. For overall headache management: Continue to optimize good self-care, including but not limited to maintaining a healthy diet, adequate fluid intake, adequate sleep, and engaging in regular physical activity. Track headaches. ? For acute headache treatment: Continue Ubrogepant (Ubrelvy) 100mg tab, 1/2 - 1 tab (50-100mg) at onset of headache, may repeat in 2 hours. Max of 2 tabs (200mg) per 24 hours. May adjunct with OTC Tylenol 650mg q 4 hours. May use sumatriptan p.r.n. for rescue. Zofran ODT 4mg q 4hr sprn N/V Previous acute migraine medication trials: Sumatriptan inj- was helpful. Sumatriptan was helpful. Zolmitriptan- unsure of effect. Acute migraine medication contraindications: Excess use of Triptans d/t palpitations, HLD. ? For headache prevention medication: Continue Magnesium up to 400mg qhs Resume Emgality at 240mg loading dose then 1 in month, resume maintenance dose 120mg sc q month- as this has previously been effective w/ > than 30% reduction in monthly migraine days. Continue Nortriptyline 50mg qhs- monitor palpitations. Previous migraine prevention medication trials: None other Migraine prevention medication contraindications: BBs d/t symptomatic asthma dx. Increasing TCA d/t palpitations. Topiramate d/t h/o renal calculi. ? Pt to follow-up in 6 months or sooner prn. Medications: New galcanezumab-gnlm (Emgality Pen) Loading dose: 120 mg subcu injection x2 in alternate sites (total 240 mg). To be followed by maintenance dose of 120 mg subcu q.month. 240 mg (2 mL) subcut ONCE 2 mL 0RF 30 days CHICO Chino Changed From loratadine 10 mg PO DAILY 90 days 90 tabs 1RF To loratadine 10 mg PO QID Devon Lebron MD From ondansetron 4 mg PO Q8H PRN To ondansetron 4 mg PO Q6H PRN 20 tabs 3RF nausea and vomiting 30 days CHICO Chino Refilled ubrogepant (Ubrelvy) take at onset of migraine, may repeat in 2hrs (may take w/ Tylenol) 50 - 100 mg (0.5 - 1 x 100 mg) PO ONCE PRN 16 tabs 6RF migraine headache 30 days CHICO Chino nortriptyline 50 mg PO BEDTIME 90 caps 1RF 90 days CHICO Chino Discontinued prednisone Start one day before and last dose on morning of the procedure Discontinued Reason: Patient Completed Course 40 mg (2 x 20 mg) PO BID 6 tabs 0RF Coding Level of Care Code Est Pt Level 4 (44528) Diagnoses Migraine with aura and without status migrainosus, not intractable G43.109 Intractability: not intractable Status migrainosus presence: without status migrainosus Multiple food allergies Z91.018
--- OUTSIDE RECORDS SUMMARY | 2025-06-16 07:53 | XMS_ITS | Clinical Summary ---
Author Organization [facility] [facility] it Address [address] [place] [address] Care Team Providers Care Associate Professor Of Kinesiology Name Role Phone Matty Jimenez MD Primary [...] Date Comments Lupus (systemic lupus erythe matosus) ([facility] V24, [facility] V28) DX:Lupus (systemic lupus erythematosus) ([facility]); COMMENT: right lung crystalized Herniated disc DX:Herniated dis c H/O colonoscopy 2013 DX:H/O colonosco py Colon polyps DX:Colon polyps Other specified personal his tory presenting hazards to health(V15.89) 2006 DX:Other specifie d personal history presenting hazards to health(V15.89); COMMENT: uterine Renal calculi 01/2016 DX:Renal calculi ; COMMENT: [facility], Dr. Ford Breast cancer ([facility]CC V24, [facility] V28) 2002 DX:Breast cancer ([facility]); COMM ENT: rt Dr. Eliza Quiroz Multiple lipomas DX:Multiple lip omas History of uterine cancer DX:His tory of uterine cancer Fibromyalgia DX:Fibromyalgia Asthma DX:Asthma Seizure disorder ([facility] V2 4, [facility] V28) DX:Seizure disorder ([facility]) Family History Medical History Relation Name Comments [...] Panel) 10/14/2022 Colorectal Cancer Screening: Colonoscopy 10/14/2022 Hepatitis C Screening 10/14/2022 Osteoporosis Screening (Bone Density Screening) 10/14/2022 Social Influencers of Health Screening 10/14/2022 Falls Risk Assessment 2022 Depression Screening 11/11/2024 Influenza Vaccine (#1) 2025 HIB Vaccines Aged [...] Recently Relevant to Health Maintenance Care Teams Associate Professor Of Kinesiology Relationship Specialty Start Date End Date Matty Jimenez MD PCP - General Internal Medicine 11/30/14
--- OUTSIDE RECORDS SUMMARY | 2025-06-16 07:53 | XMS_ITS | Clinical Summary ---
Author Organization [facility] Address [address] [facility] [address] [place] [address] Phone Care Team Providers Care Fresh Foods Technician Name Role Phone NicolAlexy padilla Primary Care Provider [phone] Allergies Active Allergy Reactions Criticality Noted Date [...] Visit [facility] [address] [address] Lior Cbarera MD [address] [address] Health Maintenance Due Date Last [...] to complete this topic Insurance Medicaid [place] [facility] Care Teams Fresh Foods Technician Relationship Specialty Start Date End Date Alexy Camarena DO [address] [place] [address] PCP - General Internal Medicine 08/01/22
== END 2025-06-16 08:52 | disposition home or self-care (01) ==
LOC: HO.HSMS 07:51
PROVIDERS: PCP Internal Medicine; Visit Provider Nurse Practitioner Family
DX: G43.109 Migraine with aura, not intractable, without status migrainosus (principal); Z91.018 Allergy to other foods
CPT/HCPCS: 99214

== ENCOUNTER → 2025-06-16 07:50 | Outpatient (BNVA) | payer MEDICARE, SELFPAY | PROVIDERS: PCP Internal Medicine; Visit Provider Nurse Practitioner Family | DX: G43.109 Migraine with aura, not intractable, without status migrainosus (principal); Z91.018 Allergy to other foods | CPT/HCPCS: 99212 ==

== ENCOUNTER 2025-06-17 09:50 | Outpatient (REF) | payer MEDICARE, SELFPAY ==
--- OUTSIDE RECORDS SUMMARY | 2025-06-17 10:19 | XMS_ITS | Clinical Summary ---
Author Organization [facility] it Address [address] [place] [address] Care Team Providers Care Burlap Spreader Name Role Phone Matty Jimenez MD Primary [...] Date Comments Lupus (systemic lupus erythe matosus) ([facility] V24, [facility] V28) DX:Lupus (systemic lupus erythematosus) ([facility]); COMMENT: right lung crystalized Herniated disc DX:Herniated dis c H/O colonoscopy 2013 DX:H/O colonosco py Colon polyps DX:Colon polyps Other specified personal his tory presenting hazards to health(V15.89) 2006 DX:Other specifie d personal history presenting hazards to health(V15.89); COMMENT: uterine Renal calculi 01/2016 DX:Renal calculi ; COMMENT: [facility], Dr. Ford Breast cancer ([facility]/HCC V24, [facility] V28) 2002 DX:Breast cancer ([facility]); COMM ENT: rt Dr. Eliza Quiroz Multiple lipomas DX:Multiple lip omas History of uterine cancer DX:His tory of uterine cancer Fibromyalgia DX:Fibromyalgia Asthma DX:Asthma Seizure disorder ([facility] V2 4, [facility] V28) DX:Seizure disorder ([facility]) Family History Medical History Relation Name Comments [...] Recently Relevant to Health Maintenance Care Teams Burlap Spreader Relationship Specialty Start Date End Date Matty Jimenez MD PCP - General Internal Medicine 11/30/14
--- OUTSIDE RECORDS SUMMARY | 2025-06-17 10:19 | XMS_ITS | Clinical Summary ---
Author Organization [facility] Address [address] [facility] [address] [place] [address] Phone Care Team Providers Care Office Runner Name Role Phone NicolAlexy padilla Primary Care Provider [phone] Allergies Active Allergy Reactions Criticality Noted Date [...] [facility] [address] [address] Lior Cabrera MD [address] [address] Health Maintenance Due Date Last [...] to complete this topic Insurance Medicaid [place] [facility] Care Teams Office Runner Relationship Specialty Start Date End Date Alexy Camarena DO [address] [place] [address] PCP - General Internal Medicine 08/01/22
== END 2025-06-17 09:51 | disposition home or self-care (01) ==
LOC: HO.MAMMO 09:50
PROVIDERS: PCP Internal Medicine; Visit Provider Internal Medicine
DX: Z12.31 Encounter for screening mammogram for malignant neoplasm of breast (principal)
CPT/HCPCS: 77063; 77067

== ENCOUNTER → 2025-06-17 10:15 | Outpatient (BNV) | payer MEDICARE, SELFPAY | PROVIDERS: PCP Internal Medicine; Visit Provider Radiology Body Imaging | DX: Z12.31 Encounter for screening mammogram for malignant neoplasm of breast (principal) | CPT/HCPCS: 77063; 77067 ==

== ENCOUNTER 2025-08-03 07:52 | Outpatient (AMB) | payer MEDICARE, SELFPAY ==
--- OUTSIDE RECORDS SUMMARY | 2025-08-03 07:55 | XMS_ITS | Clinical Summary ---
Author Organization [employer] [facility] it Address [address] [place] [address] Care Team Providers Care Biology Specimen Technician Name Role Phone Matty Jimenez MD Primary [...] Date Comments Lupus (systemic lupus erythe matosus) ([facility] V24, [facility] V28) DX:Lupus (systemic lupus erythematosus) ([facility]); COMMENT: right lung crystalized Herniated disc DX:Herniated dis c H/O colonoscopy 2013 DX:H/O colonosco py Colon polyps DX:Colon polyps Other specified personal his tory presenting hazards to health(V15.89) 2006 DX:Other specifie d personal history presenting hazards to health(V15.89); COMMENT: uterine Renal calculi 01/2016 DX:Renal calculi ; COMMENT: [facility], Dr. Ford Breast cancer ([facility]/HCC V24, [facility] V28) 2002 DX:Breast cancer ([facility]); COMM ENT: rt Dr. Eliza Quiroz Multiple lipomas DX:Multiple lip omas History of uterine cancer DX:His tory of uterine cancer Fibromyalgia DX:Fibromyalgia Asthma DX:Asthma Seizure disorder ([facility] V2 4, [facility] V28) DX:Seizure disorder ([facility]) Family History Medical History Relation [...] Recently Relevant to Health Maintenance Care Teams Biology Specimen Technician Relationship Specialty Start Date End Date Matty Jimenez MD PCP - General Internal Medicine 11/30/14
--- OUTSIDE RECORDS SUMMARY | 2025-08-03 07:55 | XMS_ITS | Clinical Summary ---
Author Organization [facility] Address [address] [facility] [address] [place] [address] Phone Care Team Providers Care Head Insulation Board Saw Operator Name Role Phone NicolAlexy padilla Primary Care Provider [phone] Allergies Active Allergy Reactions Criticality Noted Date [...] [facility] [address] [address] Lior Cabrera MD [address] [address] Health Maintenance Due Date Last [...] to complete this topic Insurance Medicaid [place] [facility] Care Teams Head Insulation Board Saw Operator Relationship Specialty Start Date End Date Alexy Camarena DO [address] [place] [address] PCP - General Internal Medicine 08/01/22
--- NOTE | 2025-08-03 08:27 | MHC.OFFVIS ---
Vital Signs 08/03/25 08:27 Height 5 ft 3 in Weight 169 lb 4 oz BMI 30.0 Intake Visit Reasons: 6 mth breast exam Intake Note: Patient is seen in office for 6 month follow up visit, breast exam. Patient c/o: no breast complaints at this time. mm:06/17/25 Media Reporter Required: No Accompanied by: Self / Same As Patient Allergies aspirin Allergy (Intermediate, Verified 08/03/25 08:34) Rash and Hives omalizumab (From Xolair) Allergy (Intermediate, Verified 08/03/25 08:34) Angioedema Almonds,hazenuts,fresh fruits, Allergy (Severe, Uncoded 08/03/25 08:34) Hives/Rash Chlorhexidine Allergy (Severe, Uncoded 08/03/25 08:34) Rash and Hives Dye HALF-WAY Blue 1 Allergy (Severe, Uncoded 08/03/25 08:34) Rash and Hives fresh fruits Allergy (Severe, Uncoded 08/03/25 08:34) Rash and Hives onions Allergy (Severe, Uncoded 08/03/25 08:34) Rash and Hives Chlora Prep Allergy (Intermediate, Uncoded 08/03/25 08:34) rash peanuts Allergy (Intermediate, Uncoded 08/03/25 08:34) Rash Medication List - Last Reconciled 08/03/25 by Bacilio Syed MD acetaminophen (Tylenol Extra Strength) 500 mg PO Q6H PRN albuterol sulfate 90 mcg/actuation (ProAir HFA) 1 inh inhalation QID albuterol sulfate 2.5 mg (3 mL) inhalation Q4-6H PRN benralizumab (Fasenra) mg subcut benzonatate 200 mg PO TID PRN budesonide-formoterol 160-4.5 mcg/actuation (Symbicort) 2 puffs inhalation BID 30 days desloratadine (Clarinex) 5 mg PO DAILY diclofenac sodium 1% 4 grams topical QID epinephrine (EpiPen 2-Teofilo) 0.3 mg (0.3 mL) IM Q10M PRN 90 days famotidine 20 mg PO BID yippupiyctr-bgubuynyd-kdivpnua 200-62.5-25 mcg (Trelegy Ellipta) 1 inh inhalation DAILY 90 days galcanezumab-gnlm (Emgality Pen) 120 mg subcut ONCE 30 days galcanezumab-gnlm (Emgality Pen) 240 mg (2 mL) subcut ONCE 30 days hydrochlorothiazide 12.5 mg PO DAILY hydroxychloroquine (Plaquenil) 200 mg PO DAILY 30 days loratadine 10 mg PO QID magnesium oxide 400 mg PO BID montelukast 10 mg PO DAILY 90 days nebulizers As directed nortriptyline 50 mg PO BEDTIME 90 days omeprazole 40 mg PO DAILY 30 days ondansetron 4 mg PO Q6H PRN 30 days potassium citrate ER (Urocit-K 10) 10 mEq PO TID rosuvastatin 0 mg PO sumatriptan succinate 50 mg PO Q2-4H PRN 30 days tamsulosin 0.4 mg PO BEDTIME ubrogepant (Ubrelvy) 50 - 100 mg (0.5 - 1 x 100 mg) PO ONCE PRN 30 days umeclidinium 62.5 mcg/actuation (Incruse Ellipta) 1 inh inhalation DAILY 30 days vitamin L80-frjdj acid 2,500-400 mcg tabs PO vitamin K2 45 mcg PO DAILY HPI Comments Details: Evie Shahid is a 69-year-old former patient of Dr. Wells returning today for follow-up breast evaluation for breast pain.? She has a history of right-sided breast pain located mainly in the upper inner quadrant. She initially tried [place] oil without much success in later was started on tamoxifen by Dr. Wells.? Since starting the Low-dose tamoxifen she reported an improvement in her breast pain especially on the right side.? She denies any leg pain or leg swelling.? She denies any vaginal bleeding. She was previously on tamoxifen after developing right breast cancer which was treated at [facility] in 1998 (Dr. Eliza Quiroz).? She continues to feel improvement while taking the tamoxifen. The tamoxifen was stopped 6 months ago and she denies significant change. She continues to feel breast pain in the right breast at the lower inner quadrant. She denies any new breast mass or skin change. Her most recent mammogram performed on 06/17/2025 revealed no mammographic evidence of malignancy (BI-RADS 2). She was scheduled for an annual mammogram on 06/23/2026. [facility] Medical History Chest pain Tachycardia Type 2 diabetes mellitus Varicose veins of bilateral lower extremities with pain GERD (gastroesophageal reflux disease) HLD (hyperlipidemia) History of renal calculi Hepatic steatosis History of breast cancer Chronic restrictive lung disease Insomnia Back pain Moderate persistent asthma Post herpetic neuralgia Kidney stones Chronic allergic rhinitis Atelectasis Asthma Surgical History Hx of eye surgery History of colonoscopy (08/30/19) History of excision of mass (08/27/19) History of cholecystectomy (07/21/19) History of cystoscopy (2010) History of arthroplasty of knee (1993) History of hemorrhoidectomy (1983) History of 2 sections History of tonsillectomy and adenoidectomy (1965) History of hysterectomy for cancer Family History Father No problems noted. Mother Chest pain Sister History of ovarian cancer, Onset Age: 49 Afib Maternal Aunt History of breast cancer Maternal Aunt History of breast cancer Maternal Aunt History of breast cancer Maternal Aunt History of breast cancer Social History Alcohol intake: never Patient Tobacco Use Status: Never used Tobacco Review of Systems Const All systems reviewed & are unremarkable except as noted in HPI and below Physical Exam Vital Signs: BMI result Body Mass Index 30.0 Const General: cooperative, healthy appearing, comfortable and no acute distress Chest Other: Left breast: No skin change, no nipple retraction, no nipple discharge, no palpable mass, no enlarged lymph nodes, and mild tenderness in the upper inner quadrant, mild fibrocystic change Right breast: No skin change, no nipple retraction, no nipple discharge, no palpable mass, no enlarged lymph nodes; mild tenderness in the upper inner quadrant. Resp Effort & Inspection: normal respiratory effort, no cough and no stridor GI Inspection: Yes normal to inspection Skin Other: Warm and dry, no rash General skin exam: no rashes or lesions noted Neuro Other: Alert and oriented x3, patient uses a cane for ambulation Extrem General: Yes no clubbing, cyanosis or edema Assessment & Plan Assessment & Plan (1) Breast pain: Code(s): N64.4 - Mastodynia Category: Medical Plan: \ (2) History of breast cancer: Comment: s/p chemo and Rx. On Tamoxifen. f/b Dr Ho Code(s): Z85.3 - Personal history of malignant neoplasm of breast Category: Medical Plan Patient returns for follow-up breast examination for breast pain. She completed 5 years of low-dose tamoxifen for breast pain and since stopping the medication with no significant increase in her breast pain. Her most recent mammogram of 06/17/2025 revealed no mammographic evidence of malignancy (BI-RADS 2). Examination today revealed no new suspicious findings in either breast. There is mild tenderness in the upper inner quadrant bilaterally but no significant findings on examination. I recommended follow-up examination in 6 months, sooner PRN. Coding Level of Care Code Est Pt Level 3 (72744) Complex EM visit Add On G2211 Diagnoses Breast pain N64.4 History of breast cancer Z85.3
== END 2025-08-03 08:53 | disposition home or self-care (01) ==
LOC: HO.HGS 07:53
PROVIDERS: PCP Internal Medicine; Visit Provider Surgery
DX: N64.4 Mastodynia (principal); Z85.3 Personal history of malignant neoplasm of breast
CPT/HCPCS: 99213; G2211

== ENCOUNTER → 2025-08-03 07:52 | Outpatient (BNVA) | payer MEDICARE, SELFPAY | PROVIDERS: PCP Internal Medicine; Visit Provider Surgery | DX: N64.4 Mastodynia (principal); Z85.3 Personal history of malignant neoplasm of breast | CPT/HCPCS: 99212 ==

== ENCOUNTER 2025-10-19 09:43 | Outpatient (AMB) | payer MEDICARE, SELFPAY ==
[2025-10-19 09:47] VITALS: BP 94/68; PULSE 104; O2SAT 96; BMI 29.9
--- NOTE | 2025-10-19 09:47 | MHC.OFFVIS ---
Vital Signs 10/19/25 09:47 Height 5 ft 3 in Weight 168 lb 10.458 oz BMI 29.9 BP 94/68 Blood Pressure Location Lt brachial Position Sitting Pulse 104 H Pulse Source Pulse Oximeter Pulse Oximetry (%) 96 Oxygen Delivery Method Room Air Intake Visit Reasons: Asthma Special Effects Specialist Required: No Accompanied by: Self / Same As Patient Allergies aspirin Allergy (Intermediate, Verified 10/19/25 09:51) Rash and Hives omalizumab (From Xolair) Allergy (Intermediate, Verified 10/19/25 09:51) Angioedema Almonds,hazenuts,fresh fruits, Allergy (Severe, Uncoded 08/03/25 08:34) Hives/Rash Chlorhexidine Allergy (Severe, Uncoded 08/03/25 08:34) Rash and Hives Dye [facility] Blue 1 Allergy (Severe, Uncoded 08/03/25 08:34) Rash and Hives fresh fruits Allergy (Severe, Uncoded 08/03/25 08:34) Rash and Hives onions Allergy (Severe, Uncoded 08/03/25 08:34) Rash and Hives Chlora Prep Allergy (Intermediate, Uncoded 08/03/25 08:34) rash peanuts Allergy (Intermediate, Uncoded 08/03/25 08:34) Rash HPI Comments Details: The patient is a 69-year-old woman with a known history of asthma in addition to systemic lupus erythematous. Will or she continues to use her respiratory therapy regularly. Has not had any recent flares or need for prednisone. Seems like it lupus is under control. However, the patient is presenting now with left-sided pleuritic discomfort mainly in the upper part of her left lung. This started happening for the last day or 2. It seems to be getting worse. Moderate in severity. Not associated with any fevers or chills. She has noticed increased rash sometimes getting blotches of January under scan that are tender. 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 The last kidney function was normal. The patient has not had any recent x-rays or blood work. We did do a blood work evaluation to see if she has any active lupus and we didn't see any significance. We talked about Plaquenil also potential therapy however. In the meantime the patient continues having this discomfort. Her x-ray appear to be relatively clear was not helpful trying to explain the right-sided pleuritic discomfort. She may have a neuromuscular component. But at this time with history lupus we have to make sure she the doesn't have any evidence of any pneumonitis or pleuritis. She does have an allergic reaction to dye as we cannot use that at this time. Will requested non contrast CT scan of the chest. In the meantime will try Plaquenil and consider he given some prednisone. We did do the blood work to assess lupus activity and her complement levels were within normal and her double strand DNA was also undetectable. Therefore, does not appear to have any lupus activity. Her CT scan of the chest is also reassuring. She has areas of atelectasis but no other findings to suggest active connective tissue disease at this time. Her pleural lining appears to be well visualized without any significant thickening or inflammation or effusions. 07/05/2023 the patient is here for a pulmonary follow-up visit. Her respiratory status seems to be doing better on the Trelegy inhaler and also on the Fasenra injections. She has been having some chest discomfort her. Pleuritic in nature. She had been on Plaquenil before and did help her with her symptoms. Explained to her that this is not a medication that she can take regularly. I will prescribe for 1 month and afterwards if she needs additional or she feels that she wants to continue it she needs to talk to primary care or Rheumatology. The patient is also having some difficulty sleeping. She is using the melatonin. She is not using the trazodone. When she does sleep she does wake up tired. Her [place] score is elevated 10/24. She does have intermittent headaches. She does have snoring. Will request a sleep study at this time. 01/03/2024 the patient is here for pulmonary follow-up visit. Overall the patient has been doing well on the current respiratory regimen. She is responded well to the Trelegy inhaler and also the Fasenra injections. He has been getting the every 8 weeks. Denies any adverse effects from the medications. Her asthma has been significantly improved. Has not required any prednisone which is reassuring. In the meantime she has been struggling with her sleep. She is tried multiple medication including trazodone in the past without any significant improvement. She continues to have significant daytime drowsiness. The patient did undergo home sleep study which we personally viewed in the office. No evidence of any significant sleep apnea documented in the home sleep study. Will go ahead and try her on a small dose of zolpidem the hopes that she gets enough sleep. She knows to take the medication right at sleep time and not to plan any activities after taking the medication. The patient will monitor closely symptoms and hopefully she has improvement with smaller dose of the zolpidem. Otherwise patient is doing well. Will plan to follow-up in 4-6 months. 07/01/2024 the patient is here for a pulmonary follow-up visit. Overall the patient has been doing okay. She has been complaining of worsening dyspnea on exertion her. [id number] severity. Specially when she goes up a flight of stairs. She does use a cane. She does have back issues. From an asthma standpoint the patient is doing very good on the biologic therapy, Fasenra. She also continues on Trelegy. She has not required any prednisone nor her rescue inhaler. And her respiratory exam is reassuring. She did have a chest x-ray which I reviewed demonstrating no acute disease. In addition to that she did have blood work back in December demonstrating no evidence of any anemia or anything else that can explain shortness of breath. On further questioning she does state having some chest pressure and pain at times. Although is transient. She does not have any chest discomfort at this time. Sometimes she does feel palpitations and increased heart rate. We did go for brief walking oximetry in the office in heart rate did increase to about 112 beats per minute with minimal activity. Oxygen was normal. Based on her ongoing symptoms will go ahead and refer her to Cardiology. To further address her symptoms and likely will need a stress test. She will not be able to do a treadmill since she does have a cane. From an allergy standpoint the patient is doing well on the current therapy will continue it at this time. From vaccine standpoint she is does not use any vaccines will hold off on those as well. Will follow-up in 6 months or sooner if she develops any worsening issues. 01/01/2025 the patient is here for a pulmonary follow-up visit. Overall she is doing well from a respiratory status. She has been having issues with rash. She has been noticing some hives throughout her body pleuritic in nature. 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 She continues on the Fasenra although the Fasenra has been very expensive for her and she is not sure she is going to be able to afford it. She is looking to changing her insurance or prescription programs. In the meantime with the hives will go ahead and recheck her IgE levels to see what her need for biologic is at this time. If her IgE levels elevated than may be a different type of biologic regimen will be more warranted for her. For now she will continue with the current respiratory therapy. She is also going to follow-up with her primary care doctor regarding the rash the rash seems to be better. One thing about the rash was that her asthma was more active when he was noticeable I do believe that this is more related to an allergic reaction then related to any connective tissue disease. She did have an elevated DALI for her demonstrating DNA is negative. Apparently she had been on Plaquenil in the past. She can discuss that further textile science technician. 04/28/2025 the patient is here for pulmonary follow-up visit. From a respiratory status seems to be doing Trelegy. She has stopped it Fasenra because of insurance issues and seems to be doing okay without it. She then started developing a rash. She did see dermatology. Not clear what dermatology thought. She is concerned as her lupus that is active. Before we had checked her blood work and her DALI was indeed elevated. She will be following up with textile science technician soon. She also complains of some chest discomfort question if this could be pleuritic in nature and she had been on Plaquenil in the past and seemed to have been tolerating it. Therefore I will give her a prescription she can try for a month and then follow-up with Rheumatology and see if this is reasonable. If it is not she can discontinue the medication. She did have a cardiology evaluation. And felt to be okay, although, she has not had a stress test yet. Will follow-up sometime in the fall and discuss any additional testing done. She also had a fall where she hurt her risk. She was supposed to get an x-ray. Otherwise the patient is without any other complaints. She will continue the current respiratory therapy as prescribed. 10/19/2025 the patient is here for a pulmonary sick visit. She apparently started developing significant left-sided pleuritic chest pain. This occurred just after Thanksgiving. Moderate to severe. She did go to an urgent care. She had an abnormal EKG when she was transferred over to [facility]. There she had multiple other EKGs with some EKG changes. She did undergo a CTA of the abdomen and chest to rule out dissection. No evidence of any PE the could be identified based on the report. There is a questionable area that I saw on the left hemithorax in the periphery that could have just been associated with atelectasis. In addition to that blood work was reassuring. She was discharged on Flexeril. She continues to have the discomfort. She can not sleep on that side. Although is reproducible she feels like it is deeper than just the musculoskeletal area. She does have a history of connective tissue diseases. We did talk about differential. Right now will have her get blood work and recheck a D-dimer. If D-dimer is elevated she may need a CTA to rule out PE. Also look at her inflammatory levels and lupus activity. Will start her on some prednisone for now to see if we can alleviate some of the discomfort. She will monitor closely for any hyperglycemia symptoms. [facility] Medical History (Updated 10/19/25 @ 10:15 by Devon Lebron MD) Pleuritic chest pain Chest pain Tachycardia Type 2 diabetes mellitus Varicose veins of bilateral lower extremities with pain GERD (gastroesophageal reflux disease) HLD (hyperlipidemia) History of renal calculi Hepatic steatosis History of breast cancer Chronic restrictive lung disease Insomnia Back pain Moderate persistent asthma Post herpetic neuralgia Kidney stones Chronic allergic rhinitis Atelectasis Asthma Surgical History Hx of eye surgery History of colonoscopy (08/30/19) History of excision of mass (08/27/19) History of cholecystectomy (07/21/19) History of cystoscopy (2010) History of arthroplasty of knee (1993) History of hemorrhoidectomy (1983) History of 2 sections History of tonsillectomy and adenoidectomy (1965) History of hysterectomy for cancer Family History Father No problems noted. Mother Chest pain Sister History of ovarian cancer, Onset Age: 49 Afib Maternal Aunt History of breast cancer Maternal Aunt History of breast cancer Maternal Aunt History of breast cancer Maternal Aunt History of breast cancer Social History Alcohol intake: never Patient Tobacco Use Status: Never used Tobacco Review of Systems Const Denies weakness ENT Denies dizziness Card Reports chest pain, Denies chest pain with activity, Denies syncope, Denies rapid heart rate, Denies pedal edema, Denies edema, Denies leg edema, Denies lightheadedness, Denies palpitations, Denies dyspnea, Denies dyspnea on exertion and Denies orthopnea Resp Denies cough, Denies dyspnea and Denies dyspnea on exertion GI Denies hematochezia and Denies change in stool character Musc Reports as per HPI, Denies abnormal gait, Reports myalgias, Reports arthralgias, Reports joint swelling, Reports limited range of motion, Denies muscle cramps, Denies muscle weakness, Denies numbness, Denies radiating pain into limb and Denies tingling Neuro Denies abnormal gait, Denies dizziness, Denies syncope, Denies numbness, Denies tingling and Denies weakness Endo Denies palpitations Physical Exam Vital Signs: Last Vital Signs Pulse 104 H 10/19/25 09:47 BP 94/68 10/19/25 09:47 Pulse Ox 96 10/19/25 09:47 Oxygen Delivery Method Room Air 10/19/25 09:47 BMI result Body Mass Index 29.9 Const General: alert Neck Neck: Yes normal visual inspection, Yes full ROM and Yes no lymphadenopathy Chest Chest palpation & inspection: tenderness rib, sternum and costal cartilage Resp Effort & Inspection: normal respiratory effort Auscultation: no rales, no rhonchi, no wheezes and diminished lung sounds Cardio Rate: regular rate Rhythm: regular rhythm Heart sounds: S1 normal heart sound present and S2 normal heart sound present GI Palpation (GI): Soft to palpation and nontender Auscultation: normal bowel sounds Skin General skin exam: rashes and/or lesions noted Assessment & Plan Assessment & Plan (1) Pleuritic chest pain: Code(s): R07.81 - Pleurodynia Category: Medical (2) Asthma: Code(s): J45.909 - Unspecified asthma, uncomplicated Category: Medical Qualifiers: Asthma severity: severe Asthma persistence: persistent Asthma complication type: uncomplicated Qualified Code(s): J45.50 - Severe persistent asthma, uncomplicated (3) Chronic allergic rhinitis: Code(s): J30.9 - Allergic rhinitis, unspecified Category: Medical (4) Atelectasis: Code(s): J98.11 - Atelectasis Category: Medical (5) Insomnia: Code(s): G47.00 - Insomnia, unspecified Category: Medical Qualifiers: Insomnia type: primary Qualified Code(s): F51.01 - Primary insomnia (6) Dyspnea: Code(s): R06.00 - Dyspnea, unspecified Category: Medical Qualifiers: Dyspnea type: dyspnea on exertion Qualified Code(s): R06.09 - Other forms of dyspnea (7) SLE (systemic lupus erythematosus): Code(s): M32.9 - Systemic lupus erythematosus, unspecified Category: Medical Plan start Prednisone taper Bloodwork ECHO continue Trelegy continue Melatonin ZOË as needed continue singular continue Claritin holding Fasenra Q8 weeks Trial of plaquenil F/U with cardiology re: abnormal EKG F/U 2 months Orders: Orders Complete Blood Count Auto Diff Today R07.81 - Pleurodynia Anti DNA DS Antibody Today R07.81 - Pleurodynia DALI Reflex Titer and Pattern Today R07.81 - Pleurodynia Erythrocyte Sedimentation Rate Today R07.81 - Pleurodynia CA echo transthoracic complete Today R07.81 - Pleurodynia Basic Metabolic Panel Today R07.81 - Pleurodynia Complement C3 Today R07.81 - Pleurodynia Complement C4 Today R07.81 - Pleurodynia D Dimer High Sensitivity Today R07.81 - Pleurodynia Medications: New prednisone PO daily; Take 2 tabs daily x 5 days, then 1 tablet daily x 5 days 15 tabs 0RF 10 days Refilled hydroxychloroquine (Plaquenil) 200 mg PO DAILY 30 tabs 2RF 30 days Coding Level of Care Code Est Pt Level 5 (69984) Diagnoses Pleuritic chest pain R07.81 Severe persistent asthma without complication J45.50 Asthma severity: severe Asthma persistence: persistent Asthma complication type: uncomplicated Chronic allergic rhinitis J30.9 Atelectasis J98.11 Primary insomnia F51.01 Insomnia type: primary Dyspnea on exertion R06.09 Dyspnea type: dyspnea on exertion SLE (systemic lupus erythematosus) M32.9 Time Spent (min) 35
== END 2025-10-19 10:21 | disposition home or self-care (01) ==
LOC: HO.HPS 09:44
PROVIDERS: PCP Internal Medicine; Visit Provider Hospitalist
DX: R07.81 Pleurodynia (principal); J45.50 Severe persistent asthma, uncomplicated; J30.9 Allergic rhinitis, unspecified; J98.11 Atelectasis; F51.01 Primary insomnia; R06.09 Other forms of dyspnea; M32.9 Systemic lupus erythematosus, unspecified
CPT/HCPCS: 99214

== ENCOUNTER 2025-10-19 09:43 | Outpatient (REF) | payer MEDICARE, SELFPAY ==
[2025-10-19 10:42] LABS: MANUAL DIFF FLAG NO
[2025-10-19 10:59] LABS: Hematocrit 45.3 % (37.0-47.0); Hemoglobin 15.0 g/dl (12.0-16.0); Imm Gran Abs Auto 0.02 X10*3/uL (0.00-0.03); Imm Gran Pct Auto 0.3 % (0.0-0.4); Lymphocytes Absolute Auto 2.6 X10*3/uL (1.2-4.9); Mean Corpuscular HGB Conc 33.1 g/dl (31.0-35.0); Mean Corpuscular Hemoglobin 29.6 pg (27.0-33.0); Mean Corpuscular Volume 89.5 fL (80.0-98.0); NRBC Abs Auto 0.000 X10*3/uL (0.0-0.012); NRBC Pct Auto 0.0 /100WBC (0.0-0.2); Platelet Count 228 X10*3/uL (160-400); Red Blood Count 5.06 X10*6/uL (4.20-5.50); White Blood Count 7.4 X10*3/uL (4.8-10.8)
[2025-10-19 11:08] LABS: D Dimer High Sensitivity < 150 NG/ML
[2025-10-19 11:31] LABS: Erythrocyte Sedimentation Rate 11 MM/HR (0-20)
[2025-10-19 11:42] LABS: Anion Gap 13 (12-20); Blood Urea Nitrogen 21 mg/dL (9-16); Calcium 9.7 mg/dL (8.4-10.2); Carbon Dioxide 25 mmol/L (22-29); Chloride 106 mmol/L (96-108); Estimated Glomerular Filt Rate > 60; Potassium 3.6 mmol/L (3.3-5.1); Sodium 140 mmol/L (135-145)
[2025-10-21 22:33] LABS: Anti Nuclear Antibody Screen POSITIVE (NEGATIVE); Anti Nuclear Antibody Titer 1:80 titer
== END 2025-10-19 09:44 | disposition home or self-care (01) ==
LOC: HO.LAB 09:43
PROVIDERS: PCP Internal Medicine; Visit Provider Hospitalist
DX: J45.50 Severe persistent asthma, uncomplicated (principal); J30.9 Allergic rhinitis, unspecified; J98.11 Atelectasis; F51.01 Primary insomnia; R06.09 Other forms of dyspnea; M32.9 Systemic lupus erythematosus, unspecified; Z79.899 Other long term (current) drug therapy; J98.4 Other disorders of lung; G47.33 Obstructive sleep apnea (adult) (pediatric); J44.89 Other specified chronic obstructive pulmonary disease; R00.0 Tachycardia, unspecified; R07.9 Chest pain, unspecified; R07.81 Pleurodynia; R21 Rash and other nonspecific skin eruption; Z01.84 Encounter for antibody response examination
CPT/HCPCS: 36415; 80048; 85025; 85379; 85652; 86038; 86039; 86160; 86225